=== PATIENT | female | born 1970 | race Asian ===

== ENCOUNTER 2021-02-25 07:10 | Outpatient (CLI) | payer BC, SELFPAY ==
--- NOTE | 2021-02-25 | ECHO_ITS ---
Patient Info Name: Elise Mckeon Age: 50 years : 1970 Gender: Female Ht: 62 in Wt: 144 lbs BSA: 1.71 m2 HR: 57 bpm BP: 135 / 74 mmHg Heart Rhythm: Sinus Rhythm Technical Quality: Fair Exam Date: 02/25/2021 7:57 AM Exam Location: [facility] Patient Status: Outpatient Admit Date: 02/25/2021 Staff Ordering Physician: Milo, Carla BRADLEY Sterile Tech: Shana Rueda RDCS Attending Provider: Milo, Carla BRADLEY Exam Type: CA echo doppler color flow Study Info Complete two-dimensional, color flow and Doppler transthoracic echocardiogram is performed. Summary 1. Complete two-dimensional, color flow and Doppler transthoracic echocardiogram is performed. 2. Left ventricular systolic function is hyperdynamic, estimated at >70%. 3. There is no increased left ventricular wall thickness. 4. The left ventricular diastolic function is grade II diastolic dysfunction. 5. There is no aortic valve stenosis. 6. There is mild tricuspid valve regurgitation. 7. No pulmonary hypertension, estimated pulmonary arterial systolic pressure is 31 mmHg. Left Ventricle Left ventricular chamber dimension is normal. Left ventricular systolic function is hyperdynamic, estimated at >70%. There is no increased left ventricular wall thickness. The left ventricular diastolic function is grade II diastolic dysfunction. Right Ventricle Right ventricular chamber dimension is normal. Right ventricular systolic function is normal. Left Atria Left atrial chamber dimension is normal. Right Atria Right atrial chamber dimension is normal. Aortic Valve The aortic valve is not well visualized. There is no aortic valve stenosis. There is no aortic valve regurgitation. Pulmonic Valve The pulmonic valve is not well visualized. Mitral Valve The mitral valve has normal leaflets. There is trace mitral valve regurgitation. The mitral valve annulus is mildly calcified. Tricuspid Valve The tricuspid valve leaflets are normal. There is mild tricuspid valve regurgitation. No pulmonary hypertension, estimated pulmonary arterial systolic pressure is 31 mmHg. Pericardium/Pleural The pericardium appears normal. There is no pericardial effusion. Inferior Vena Cava Normal inferior vena cava with >50% collapse upon inspiration consistent with normal right atrial pressure, 5 mmHg. Aorta The aortic root size at the sinus of Valsalva is normal. There is mild aortic atherosclerosis. Left Ventricular Outflow Tract Name Value Normal LVOT 2D LVOT Diameter 1.4 cm LVOT Doppler LVOT Peak Gradient 7 mmHg LVOT Mean Gradient 3 mmHg LVOT VTI 31 cm LVOT VTI/AV VTI Ratio 0.7 LVOT Stroke Volume 45 ml LVOT CO 2.1 l/min LVOT CI 1.3 l/min/m2 Pulmonic Valve Name Value Normal
--- NOTE | ~2021-02-25 | XR_ITS ---
EXAMINATION: XR chest 2V 02/25/2021 10:10 INDICATION: Asthma PROCEDURE: 2 view chest COMPARISON: No prior studies for comparison. FINDINGS: The lungs are clear. The cardiomediastinal silhouette is within normal limits. There are no pleural effusions. There is no pneumothorax suspected. IMPRESSION: 1: NO ACUTE CARDIOPULMONARY DISEASE. Reviewed, dictated and finalized at location A.
[2021-02-25 09:57] LABS: NT Pro B Type Natriuretic Pept 76 pg/mL (5-100)
[2021-02-25 12:03] LABS: Absolute Eosinophil Count 0.4 K/mm3 (0.0-0.3)
--- NOTE | 2021-02-25 15:06 | WPDSIXMINUTE ---
Six Minute Walk Procedure Procedure Performed Pulmonary Stress Test (6 min walk) Six Minute Walk This is a 6 minute walk test. The test was performed and interpreted in accordance with the 2014 ERS/ATS task force guidelines. Findings: The patient's resting room air oxygen saturation measured by pulse oximetry was 98% and her heart rate was 56 bpm. Patient ambulated for 396 meters and oxygen saturation remained 98%. Heart rate at the end of the study was 78 bpm. The patient did not qualify for supplemental oxygen at rest or with ambulation. There are no prior studies for comparison.
--- NOTE | 2021-02-25 15:07 | WPDPFTINT ---
PFT Procedure Performed PFT Procedure Performed Spirometry with Pre/Post Bronchodilator Plethysmography (Lung Vol) Diffusing Cap (DLCO) Flow Vol Loop PFT Interpretation This is a pulmonary function test with pre and post-bronchodilator spirometry, plethysmography and diffusing capacity. The test was performed and results interpreted in accordance with the 2019 and 2005 ATS/ERS Task Force guidelines respectively using the Global Lung Function Initiative-2012 reference equations. Patient demonstrated good effort and cooperation. Reproducibility criteria were met. The quality of the pre bronchodilator spirometry maneuver was Grade A and post bronchodilator spirometry maneuver was Grade A. Findings: Spirometry: There is decreased maximal expiratory airflow at all lung volumes with a concave expiratory flow tracing. The pre bronchodilator FVC is 2.12 L, 68% predicted. The pre bronchodilator FEV1 is 1.29 L, 51% predicted. The FEV1: FVC ratio 61%. The post bronchodilator FVC is 2.12 L, representing no change. The post bronchodilator FEV1 is 1.48 L, representing a 190 mL increase which corresponds to a 14% increase. Plethysmography: The total lung capacity is 4.41 L, 93% predicted. The functional residual capacity is 2.25 L, 86% predicted. The residual volume is 2.22 L, 129% predicted. Diffusing capacity: The absolute diffusion capacity is 16.6, 77% predicted. The diffusing capacity corrected for alveolar volume is 5.81, 125% predicted. Impression: There is a moderately severe obstructive abnormality without significant improvement after inhaling a single dose of albuterol as the absolute increase in FEV 1 was < 200 ml. The lung volumes are normal. The diffusing capacity is normal. There are no prior studies for comparison
[2021-03-02 10:14] LABS: Alpha-1-Antitrypsin, QN 108 mg/dL (83-199)
== END 2021-02-25 07:11 | disposition home or self-care (01) ==
PROVIDERS: PCP Family Medicine; Visit Provider Nurse Practitioner
DX: J45.909 Unspecified asthma, uncomplicated (principal); R06.09 Other forms of dyspnea; R94.2 Abnormal results of pulmonary function studies
CPT/HCPCS: 36415; 71046; 82103; 82104; 82785; 83880; 85048; 86003; 86480; 93306; 94060; 94618; 94726; 94729

== ENCOUNTER 2021-02-28 07:42 | Outpatient (CLI) | payer BC, SELFPAY ==
[2021-03-03 00:54] LABS: NIL 0.02 IU/mL; Quantiferon TB Plus, 1T NEGATIVE (NEGATIVE); TB1-NIL 0.02 IU/mL; TB2-NIL 0.02 IU/mL
== END 2021-02-28 07:43 | disposition home or self-care (01) ==
PROVIDERS: PCP Family Medicine; Visit Provider Nurse Practitioner
DX: J45.909 Unspecified asthma, uncomplicated (principal); R06.09 Other forms of dyspnea; R05 Cough
CPT/HCPCS: 36415; 86480

== ENCOUNTER 2023-05-22 11:03 | Outpatient (CLI) | payer BC, SELFPAY ==
[2023-05-22 11:45] LABS: Hemoglobin A1C 5.9 % (<5.7)
[2023-05-22 11:46] LABS: Cholesterol 255 mg/dL (0-200); HDL Direct 46 mg/dL; Triglycerides 174 mg/dL (<150)
[2023-05-22 11:57] LABS: LDL Cholesterol Direct 144 mg/dL
[2023-05-22 12:11] LABS: Free T4 Free Thyroxine 1.53 ng/mL (0.78-2.19)
[2023-05-24 13:11] LABS: Thyroid Stimulating Immunoglob 271 % baseline (<140)
[2023-05-25 05:13] LABS: Thyroid Peroxidase Antibodies 178 IU/mL (<9)
[2023-05-25 19:54] LABS: Thyrotropin Receptor Antibody 8.13 IU/L (<=2.00)
== END 2023-05-22 11:04 | disposition home or self-care (01) ==
LOC: ANHLAB 11:04
PROVIDERS: PCP Family Medicine; Visit Provider Internal Medicine
DX: E05.90 Thyrotoxicosis, unspecified without thyrotoxic crisis or storm (principal); I10 Essential (primary) hypertension
CPT/HCPCS: 36415; 80061; 82306; 83036; 83519; 84439; 84443; 84445; 86376

== ENCOUNTER 2023-08-22 13:49 | Outpatient (CLI) | payer BC, SELFPAY ==
[2023-08-22 17:15] LABS: Free T4 Free Thyroxine 1.18 ng/mL (0.78-2.19)
[2023-08-22 17:29] LABS: Total Triiodothyronine (T3) 1.11 NG/ML (0.97-1.69)
== END 2023-08-22 13:50 | disposition home or self-care (01) ==
LOC: ANHWCLAB 13:49
PROVIDERS: PCP Family Medicine; Visit Provider Internal Medicine
DX: E05.90 Thyrotoxicosis, unspecified without thyrotoxic crisis or storm (principal)
CPT/HCPCS: 36415; 84439; 84443; 84480

== ENCOUNTER 2023-09-07 10:41 | Outpatient (CLI) | payer BC, SELFPAY ==
--- NOTE | ~2023-09-07 | US_ITS ---
EXAMINATION: US thyroid DATE: 09/07/2023 11:31 INDICATION: Thyrotoxicosis, unspecified without thyrotoxic crisis. TECHNIQUE: Multiple ultrasound images of the thyroid were obtained. COMPARISON: None. FINDINGS: The right thyroid lobe measures 5.9 x 1.8 x 2.5 cm. The left thyroid lobe measures 5.3 x 1.6 x 2.1 c m. There is normal echotexture and echogenicity throughout the thyroid gland. No discrete nodules id entified. Normal vascular flow is present. IMPRESSION: 1. Normal thyroid. Reviewed, dictated and finalized at location A. [employer]PERT IMPRESSION: 1. Normal thyroid.
== END 2023-09-07 10:42 | disposition home or self-care (01) ==
PROVIDERS: PCP Family Medicine; Visit Provider Internal Medicine
DX: E05.90 Thyrotoxicosis, unspecified without thyrotoxic crisis or storm (principal)
CPT/HCPCS: 76536

== ENCOUNTER 2024-04-04 12:08 | Outpatient (CLI) | payer BC, SELFPAY ==
[2024-04-04 12:53] LABS: Alanine Aminotransferase 13 U/L (6-35); Albumin Level 4.7 g/dL (3.5-5.1); Alkaline Phosphatase 72 U/L (38-126); Anion Gap 13 mmol/L (4-12); Aspartate Amino Transferase 23 U/L (14-36); Blood Urea Nitrogen 14 mg/dL (7-17); Calcium 9.1 mg/dL (8.4-10.2); Carbon Dioxide 24 mmol/L (22-30); Chloride 104 mmol/L (98-107); Estimated Glomerular Filt Rate > 60; Glucose 98 mg/dL (65-110); Potassium 3.8 mmol/L (3.4-5.0); Sodium 141 mmol/L (137-145)
[2024-04-04 13:23] LABS: Total Triiodothyronine (T3) 0.99 NG/ML (0.97-1.69)
[2024-04-04 13:24] LABS: Free T4 Free Thyroxine 1.13 ng/mL (0.78-2.19)
== END 2024-04-04 12:09 | disposition home or self-care (01) ==
LOC: ANHLAB 12:10
PROVIDERS: PCP Family Medicine; Visit Provider Internal Medicine
DX: E78.5 Hyperlipidemia, unspecified (principal); R73.03 Prediabetes; I10 Essential (primary) hypertension; E05.90 Thyrotoxicosis, unspecified without thyrotoxic crisis or storm
CPT/HCPCS: 36415; 80053; 84439; 84443; 84480

== ENCOUNTER 2024-08-04 09:52 | Outpatient (CLI) | payer BC, SELFPAY ==
--- OUTSIDE RECORDS SUMMARY | 2024-08-04 10:38 | XMS_ITS | Clinical Summary ---
Author Organization [address] Address [address] [place] [address] Care Team Providers Care Toll Bridge Attendant Name Role Phone Reji Lott DO Primary Care Provider Reji Lott DO Unavailable [phone] Allergies Active Allergy Reactions Criticality Noted Date Comments Ciprofloxacin Swelling,Other (See comments) Medium 12/2017 Medications estradioL (ESTRACE) 0.01 % (0.1 mg/gram) vaginal cream Apply nightly to vagina for 1 week, then Sunday// Sunday 42.5 g 5 09/10/19 24 025 Active methIMAzole (TAPAZOLE) 5 mg tablet Take 1 tablet (5 mg total) by mouth daily 08/15/19 24 Active atorvastatin (LIPITOR) 20 mg tabletIndicati ons:Dyslipidem ia Take 1 tablet (20 mg total) by mouth daily 30 tablet 3 05/22/20 24 025 Active Arnuity Ellipta 200 mcg/actuation inhaler Inhale 1 puff daily Rinse mouth with water after use. Do not swallow. 30 each 07/24/19 25 025 Active albuterol HFA (PROVENTIL HFA,VENTOLIN HFA,PROAIR HFA) 90 mcg/actuation inhaler Inhale 2 puffs every 4 (four) hours as needed for wheezing or shortness of breath 1 each 07/24/19 25 025 Active fluticasone propionate (FLONASE) 50 mcg/actuation nasal spray Administer 1 spray into each nostril daily 1 each 07/24/19 25 025 Active metoprolol XL (TOPROL-XL) 25 mg extended release tablet TAKE 1 TABLET(25 MG) BY MOUTH DAILY 90 tablet 1 07/31/19 25 Active Arnuity Ellipta 200 mcg/actuation inhaler Inhale 1 puff daily Rinse mouth with water after use. Do not swallow. 30 each 08/14/19 24 025 Discontinued(Re order) albuterol HFA (PROVENTIL HFA,VENTOLIN HFA,PROAIR HFA) 90 mcg/actuation inhaler Inhale 2 puffs every 4 (four) hours as needed for wheezing or shortness of breath 1 each 08/14/19 24 025 Discontinued(Re order) metoprolol XL (TOPROL-XL) 25 mg extended release tablet Take 1 tablet (25 mg total) by mouth daily 90 tablet 3 08/22/19 24 025 Discontinued fluticasone propionate (FLONASE) 50 mcg/actuation nasal spray Administer 1 spray into each nostril daily 025 Discontinued(Re order) Active Problems Problem Noted Date Diagnosed Date UTI symptoms 11/05/2023 Assessment & Plan (11/05/2023 11:31 AM CDT): VSS, NAD, no systemic signs of toxicity, non acute abdomen, negative cva tenderness Urine dip unremarkable from infectious standpoint Hx of uterovaginal prolapse, and cystocele, stage 4 Will send off urine and yeast culture Follow up with urogynecology physician ER for abdominal pain, hematuria, dizziness Primary hypertension 08/22/2023 Overview (05/20/2024): Chronic, stable condition not requiring medication Continue diet modification Hyperthyroidism 08/22/2023 Overview (05/20/2024): Following with Endocrinology at [facility] Overall stable on methimazole Continue same medications Diabetes mellitus type II, controlled 08/22/2023 Overview (08/22/2023): Following with Endocrinology at [facility] Not requiring medication A1c 5.14 June 2022 Assessment & Plan (05/20/2024 11:50 AM INTERNET DATABASE SPECIALIST): Labs today Dyslipidemia 08/22/2023 Overview (05/20/2024): Chronic condition not on medications LDL 146 in June 2022 Continue diet modification Assessment & Plan (05/20/2024 11:51 AM INTERNET DATABASE SPECIALIST): Check labs Mild intermittent asthma without complication Overview (05/20/2024): Following with pulmonology Dr. Morales Chronic and stable on Arnuity Continue same medications Routine physical examination 08/22/2023 Overview (08/22/2023): June 11, 2023 Uterovaginal prolapse, incomplete 06/17/2018 Pelvic organ prolapse quantification stage 4 cys tocele 05/07/2018 Resolved Problems Problem Noted Date Diagnosed Date Resolved Date Mild intermittent asthma without complication 08/14/19 24 05/20/2024 Mixed incontinence 02/11/2018 8 Encounters Date Type Department Care Team Description 07/24/2024 11:15 AM INTERNET DATABASE SPECIALIST Office Visit [facility] Pulmonary [address] [place] [address] Charlene Morales MD Mild persistent asthma without complication (Primary Dx); Seasonal allergic rhinitis, unspecified trigger; Primary hypertension 05/22/2024 Telephone [facility] Primary Care [address] [place] [address] [address] [place] [address] Reji Lott, Test Results 05/20/2024 11:10 AM INTERNET DATABASE SPECIALIST Lab [facility] Office Building [address] [place] [address] Hyperthyroidism; Need for hepatitis B screening test; Need for hepatitis C screening test; Controlled type 2 diabetes mellitus without complication, without long-term current use of insulin (CMS/HCC) (HCC); Dyslipidemia; Primary hypertension 05/20/2024 10:45 AM INTERNET DATABASE SPECIALIST Office Visit [facility] Primary Care [address] [facility] [address] [place] [address] Reji Lott DO Controlled type 2 diabetes mellitus without complication, without long-term current use of insulin (CMS/HCC) (HCC) (Primary Dx); Need for hepatitis C screening test; Dyslipidemia; Hyperthyroidism; Mild intermittent asthma without complication; Primary hypertension; Need for hepatitis B screening test from Last 3 Months Immunizations Name Administration Dates Next Due COVID-19 MRNA (MODERNA) .5 M L (50 MCG) VACCINE (12 YEARS AND UP) 04/08/2023 Influenza, Quadrivalent, Rec ombinant, Egg Free, Preservative Free, Intramuscular 04/08/2019 Influenza, Quadrivalent, Spl it, Intramuscular 03/16/2017 Influenza, Trivalent, Cell Culture-based MDCK, Preservative Free, Antibiotic Free, Intramuscular 04/08/2024,04/08/2020 Influenza, Unspecified 03/09/2023,2021,02/25/2021,03/15,04/07/2016,03/27/2015 Medical History Medical History Date Comments Asthma Hypertension Family History Medical History Relation Name Comments Breast cancer Neg Hx Colon cancer Neg Hx Ovarian cancer Neg Hx Pancreatic cancer Neg Hx Prostate cancer Neg Hx Uterine cancer Neg Hx Social History Tobacco Use Types Packs/Day Years Used Date Smoking Tobacco: Never Smokeless Tobacco: Never Tobacco Cessation:Counseling Given: Not Answered Alcohol Use Standard Drinks/Week Comments No 0 (1 standard drink = 0.6 oz pur e alcohol) AUDIT-C Answer Date Recorded Q1: How often do you have a drink containing alcohol? Never 08/22/2023 Q2: How many drinks containi ng alcohol do you have on a typical day when you are drinking? Patient does not drink Q3: How often do you have si x or more drinks on one occasion? 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 Not on file Not on file Not on file Obstetrics History Para Term AB IAB SAB Ectopic Multiple Livin g Live Births 3 2 2 0 1 0 1 0 2 Date Outcome GA Total Labor Labor/2nd/3rd Weight Sex Type Anes PTL [place] A1 A5 Name Clin SAB Term Term Last Filed Vital Signs Vital Sign Reading Time Taken Comments Blood Pressure 126/70 07/24/2024 11:00 AM INTERNET DATABASE SPECIALIST Pulse 66 07/24/2024 11:00 AM INTERNET DATABASE SPECIALIST Temperature 35.9 ??C (96.6 ??F) 07/24/2024 11:[address] Respiratory Rate 16 07/24/2024 11:00 AM INTERNET DATABASE SPECIALIST Oxygen Saturation 97% 07/24/2024 11:00 AM INTERNET DATABASE SPECIALIST Inhaled Oxygen Concentration - - Weight 66.5 kg (146 lb 8 oz) 07/24/2024 11:00 AM INTERNET DATABASE SPECIALIST Height 157.5 cm (5' 2.01 ) 07/24/2024 11:[address] Body Mass Index 26.79 07/24/2024 11:00 AM INTERNET DATABASE SPECIALIST Plan of Treatment Health Maintenance Due Date Last Done Comments Colon Cancer Screening-Colonoscopy 1968 Dilated Eye Exam 1968 Foot Exam 1968 Pneumococcal vaccine <65 (1 of 2 - PCV) 1974 DTaP/Tdap/Td Vaccine (1 - Tdap) 1979 Zoster Vaccine (1 of 2) 2018 Cervical Cancer Screening 09/04/2023 09/04/2022, Depression Screening 08/22/2024 08/22/2023 Regular Well Visit/Exam 18-64 09/09/2024, 09/04/2022, 06/06/2021 Breast Cancer Screening-Mammogram 09/19/2024 09/20/2023, 06/29/2022, 06/29/2022, Additional history exists Hemoglobin A1C 11/17/2024 05/20/2024 Albumin Creatinine Ratio, Urine 05/20/2025 Lipid Panel 05/20/2025 05/20/2024, 12/0 07/2021, 05/23/2021 eGFR 05/20/2025 05/20/2024 Covid-19 Vaccine Completed 04/08/2024, 07/2022, 04/01/2022, Additional history exists Influenza Vaccine Completed 04/08/2024, , 03/07/2022, Additional history exists Hepatitis B Screening Completed 05/20/2024 Hepatitis C Screening Completed 05/20/2024 Procedures Procedure Name Priority Date/Time Associated Diagnosis Comments ALBUMIN CREATININE RATIO, URINE Routine 05/20/2024 11:19 AM INTERNET DATABASE SPECIALIST Controlled type 2 diabetes mellitus without complication, without long-term current use of insulin (CMS/HCC) (HCC) EGFR Routine 05/20/2024 11:17 AM INTERNET DATABASE SPECIALIST Controlled type 2 diabetes mellitus without complication, without long-term current use of insulin (CMS/HCC) (HCC) Dyslipidemia Primary hypertension COMPREHENSIVE METABOLIC PANEL Routine 05/20/2024 11:17 AM INTERNET DATABASE SPECIALIST Controlled type 2 diabetes mellitus without complication, without long-term current use of insulin (CMS/HCC) (HCC) Dyslipidemia Primary hypertension LIPID PANEL Routine 05/20/2024 11:17 AM INTERNET DATABASE SPECIALIST Controlled type 2 diabetes mellitus without complication, without long-term current use of insulin (CMS/HCC) (HCC) Dyslipidemia HEMOGLOBIN A1C Routine 05/20/2024 11:17 AM INTERNET DATABASE SPECIALIST Controlled type 2 diabetes mellitus without complication, without long-term current use of insulin (CMS/HCC) (HCC) TSH Routine 05/20/2024 11:17 AM INTERNET DATABASE SPECIALIST Hyperthyroidism T4, FREE Routine 05/20/2024 11:17 AM INTERNET DATABASE SPECIALIST Hyperthyroidism HEPATITIS C ANTIBODY Routine 05/20/2024 11:17 AM INTERNET DATABASE SPECIALIST Need for hepatitis C screening test HEPATITIS B SURFACE ANTIGEN Routine 05/20/2024 11:17 AM INTERNET DATABASE SPECIALIST Need for hepatitis B screening test HEPATITIS B CORE ANTIBODY, TOTAL Routine 05/20/2024 11:17 AM INTERNET DATABASE SPECIALIST Need for hepatitis B screening test HEPATITIS B SURFACE ANTIBODY (IMMUNE STATUS) Routine 05/20/2024 11:17 AM INTERNET DATABASE SPECIALIST Need for hepatitis B screening test SCREENING MAMMOGRAM BILATERAL W RAGHAV Schedule Routine, Read Routine (OP Routine) 09/20/2023 10:33 AM CDT Encounter for screening mammogram for malignant neoplasm of breast PAP AND HIGH RISK HPV, REFLEX TO GENOTYPING Routine 09/04/2022 8:36 AM INTERNET DATABASE SPECIALIST Well woman exam from Last 3 Months or Most Recently Relevant to Health Maintenance Results * Albumin Creatinine Ratio, Urine (05/20/2024 11:19 AM INTERNET DATABASE SPECIALIST) Albumin Ur <12.0 mg/L Comment: Interpretive Data No reference range established. Current interpretive data was last revised 2018. Testing performed by: [address] [address] Creatinine Ur 67.8 mg/dL LEENA Comment: Interpretive Data No reference range established. Current interpretive data was last revised 2018. Testing performed by: [address] [address] Albumin Creatinine Ratio, Ur <18 1 - 29 mg/g LEENA Comment:Testing performed by : [address] [address] Urine 05/20/2024 11:1 9 AM INTERNET DATABASE SPECIALIST 05/20/2024 1:54 PM INTERNET DATABASE SPECIALIST us Reji Lott DO LAB URINE ORDERABLES F inal Result LEENA [address] [facility] [place] [address] * eGFR (05/20/2024 11:17 AM INTERNET DATABASE SPECIALIST) eGFR >90 >=60 mL/min/1. 73 m2 Comment: Interpretive Data Reference Interval Normal ?>/= 90 mL/min/1.73m2 Mildly decreased* ? 60 - 89 mL/min/1.73m2 Mildly to moderately decreased ?45 - 59 mL/min/1.73m2 Moderately to severely decreased ??30 - 44 mL/min/1.73m2 Severely decreased ?15 - 29 mL/min/1.73m2 Kidney Failure ?< 15 ??mL/min/1.73m2 *Relative to young adult level Estimated glomerular filtration rate is determined by the 2020 CKD-EPI equation recommended by the National Kidney Foundation (A Unifying Approach to GFR Estimation: Recommendations of the NKF-ASK Task Force on Reassessing the Inclusion of Race in Diagnosing Kidney Disease, JASN 2020). The CKD-EPI equation should not be used for patients with unstable renal function and has not been validated in children and those over 70. Current interpretive data was last reviewed 2021. Testing performed by: [facility], [address] [place] [address]., [id number] Blood 05/20/2024 11:1 7 AM INTERNET DATABASE SPECIALIST 05/20/2024 1:45 PM INTERNET DATABASE SPECIALIST Reji Lott DO LAB BLOOD ORDERABLES F inal Result Performing Organization Address City/State/[facility] Co de Phone Number [id number] NR [address] [facility] [place] [address] * Hepatitis C antibody Blood (05/20/2024 11:17 AM INTERNET DATABASE SPECIALIST) Hep C Ab Nonreactive Nonreactive Comment: Antibodies to HCV not detected. Does NOT exclude the possibility of recent exposure to HCV. Current interpretive data was last revised on 22 Interpretive Data Nonreactive: Antibodies to HCV not detected. Does NOT exclude the possibility of recent exposure to HCV. Equivocal: Equivocal for HCV antibodies. Supplemental molecular testing will be automatically performed to determine infection status in accordance with current CDC screening recommendations. ?? Reactive: Positive for HCV antibodies. ??This may represent current or past HCV infection. Supplemental molecular testing will be automatically performed to determine ??current infection status in accordance with current CDC screening recommendations. Interpretive data was last revised on 2019. Blood 05/20/2024 11:1 7 AM INTERNET DATABASE SPECIALIST 05/20/2024 4:41 PM INTERNET DATABASE SPECIALIST [facility] MICROBIOLOGY - GEN ERAL ORDERABLES Final Result Performing Organization Address [facility] de Phone Number [id number] [place] [address] * (ABNORMAL) Hepatitis B core antibody, total Blood (05/20/2024 11:17 AM INTERNET DATABASE SPECIALIST) Pathologist [facility] Hep B core IgG/IgM Reactive( A) Nonreactive Comment:Testing performed by : [facility], [address] [place]., [address] Blood 05/20/2024 11:1 7 AM INTERNET DATABASE SPECIALIST 05/20/2024 5:26 PM INTERNET DATABASE SPECIALIST [facility] MICROBIOLOGY - GEN ERAL ORDERABLES Final Result Performing Organization Address [facility] de Phone Number [address] [place] [address] * Hepatitis B surface antibody (immune status) Blood (05/20/2024 11:17 AM INTERNET DATABASE SPECIALIST) Pathologist [facility] HBsAb (immune status) Reactive Comment: Interpretive Data Nonreactive: This result is consistent with a lack of immunity to Hepatitis B Virus when used in the setting of routine screening. Equivocal: The immune status of the individual should be further assessed, if appropriate, after consideration of clinical status, risk factors, and additional diagnostic information. Reactive: This result is consistent with immunity to Hepatitis B Virus when used in the setting of routine screening. Current interpretive data was last revised on 19. HBsAb (immune status) index 13.8 mIUnits/m L LEENA Blood 05/20/2024 11:1 7 AM INTERNET DATABASE SPECIALIST 05/20/2024 4:41 PM INTERNET DATABASE SPECIALIST [facility] MICROBIOLOGY - GEN ERAL ORDERABLES Final Result Performing Organization Address [facility] Co de Phone Number LEENA [address] [place] [address] * Hepatitis B Surface Antigen Blood (05/20/2024 11:17 AM INTERNET DATABASE SPECIALIST) Pathologist [facility] HepBsAg Nonreactive Nonreactive Blood 05/20/2024 11:1 7 AM INTERNET DATABASE SPECIALIST 05/20/2024 4:41 PM INTERNET DATABASE SPECIALIST Reji [facility] MICROBIOLOGY - GEN ERAL ORDERABLES Final Result Performing Organization Address [facility] de Phone Number NUPUR[address] [place] [address] * TSH (05/20/2024 11:17 AM INTERNET DATABASE SPECIALIST) [facility] Thyroid Stimulating Hormone 3.30 0.30 - 4.20 mcIUnit/mL Comment:Testing performed by : [address] [address] Blood 05/20/2024 11:1 7 AM INTERNET DATABASE SPECIALIST 05/20/2024 1:45 PM INTERNET DATABASE SPECIALIST [facility] BLOOD ORDERABLES F inal Result Performing Organization Address [facility] Co de Phone Number [address] [place] [address] * T4, free (05/20/2024 11:17 AM INTERNET DATABASE SPECIALIST) [facility] Free T4 1.10 0.90 - 1.70 ng/dL Comment:Testing performed by : [address] [address] Blood 05/20/2024 11:1 7 AM INTERNET DATABASE SPECIALIST 05/20/2024 1:45 PM INTERNET DATABASE SPECIALIST Reji Lott DO LAB BLOOD ORDERABLES F inal Result Performing Organization Address [facility] de Phone Number LEENA [address] [facility] [place] [address] * (ABNORMAL) Hemoglobin A1c (05/20/2024 11:17 AM INTERNET DATABASE SPECIALIST) Hgb A1C 6.3(H) 4.0 - 5.6 % Comment:Testing performed by : [address] [address] Estimated Average Glucose 134 mg/dL LEENA Comment: The ADA recommends reporting an estimated Average Glucose (eAG) with all Hemoglobin A1c results using the equation derived from a study of 507 normal and diabetic adults. ??Minority populations were underrepresented and children were not included. ?? (Diabetes Care 31:7560-0844, 2008). ??The eAG is not equivalent to a fasting glucose. Testing performed by: [facility], [address] [place] [address]., [address] Blood 05/20/2024 11:1 7 AM INTERNET DATABASE SPECIALIST 05/20/2024 1:52 PM INTERNET DATABASE SPECIALIST Reji Lott DO LAB BLOOD ORDERABLES F inal Result Performing Organization Address [facility] de Phone Number [facility] [address] [facility] [place] [address] * (ABNORMAL) Lipid panel (05/20/2024 11:17 AM INTERNET DATABASE SPECIALIST) Cholesterol 258(H) 30 - 199 mg/dL Comment: Interpretive Data Ages < or = 19 years ??Acceptable: ? <170 mg/dL ??Borderline high: ??170-199 mg/dL ??High: ? >or= 200 mg/dL Ages > or = 20 years ??Desirable: ?<200 mg/dL ??Borderline high: ??200-239 mg/dL ??High: ? >or= 240 mg/dL Literature References: 1. Expert Panel on Integrated Guidelines for Cardiovascular Health and Risk Reduction in Children and Adolescents. Pediatrics 2011;128:S213 2. NCEP Expert Panel. Circulation 2004;110:227 Current Interpretive Data was last revised on 2018. Testing performed by: [address] [address] Triglycerides 120 <=149 mg/dL LEENA Comment: Interpretive Data Ages < or = 9 years ??Acceptable: ? <75 mg/dL ??Borderline high: ??75-99 mg/dL ??High: ? >or= 100 mg/dL Ages 10 to 20 years ??Acceptable: ? <90 mg/dL ??Borderline high: ??90-129 mg/dL ??High: ? >or= 130 mg/dL Ages > or = 20 years ??Desirable: ?<150 mg/dL ??Borderline high: ??150-199 mg/dL ??High: ? 200-499 mg/dL ?Very high: ?? >or= 499 mg/dL Literature References: 1. Expert Panel on Integrated Guidelines for Cardiovascular Health and Risk Reduction in Children and Adolescents. Pediatrics 2011;128:S213 2. NCEP Expert Panel. Circulation 2004;110:227 Current Interpretive Data was last revised on 2018. Testing performed by: [address] [address] HDL 55 >=40 mg/dL LEENA Comment: Interpretive Data Ages < or = 19 years ??Acceptable: ? >45 mg/dL ??Borderline low: ?? 40-45 mg/dL ??Low: ? <40 mg/dL Ages > or = 20 years ??Desirable: ?>or= 60 mg/dL ??Low: ? <40 mg/dL Literature References: 1. Expert Panel on Integrated Guidelines for Cardiovascular Health and Risk Reduction in Children and Adolescents. Pediatrics 2011;128:S213 2. NCEP Expert Panel. Circulation 2004;110:227 Current Interpretive Data was last revised on 2018. Testing performed by: [address] [address] LDL, calculated 182(H) <=129 mg/dL LEENA Comment: Interpretive Data Ages < or = 19 years ??Acceptable: ? <110 mg/dL ??Borderline high: ??110-129 mg/dL ??High: ?>or= 130 mg/dL Ages > or = 20 years ??Optimal: ? <100 mg/dL ??Near optimal: ?100-129 mg/dL ??Borderline high: ?? 130-159 mg/dL ??High: ?>160 mg/dL Calculated using the Bob LDL-C estimating equation. This equation was implemented on 2024. Prior to this date LDL-C was estimated using the Friedewald equation. Literature References: 1. Expert Panel on Integrated Guidelines for Cardiovascular Health and Risk Reduction in Children and Adolescents. Pediatrics 2011;128:S213 2. NCEP Expert Panel. Circulation 2004;110:227 3. Bob Church et al. RADHA Cardiol. 2020 November 06;5(5):540-548. doi: 10.1001/jamacardio.2020.0013 Current Interpretive Data was last revised on 2024. Testing performed by: [address] [address] Non-HDL Cholesterol 203 mg/dL LEENA Comment: Interpretive Data Ages < or = 19 years ??Acceptable: ?<120 mg/dL ??Borderline high: ??120-144 mg/dL ??High: ?>145 mg/dL Ages > or = 20 years ??When triglycerides are >200 mg/dL, Non-HDL cholesterol is a secondary target of ? therapy with treatment goals that are 30 mg/dL greater than the LDL cholesterol target. ? Literature References: 1. Expert Panel on Integrated Guidelines for Cardiovascular Health and Risk Reduction in Children and Adolescents. Pediatrics 2011;128:S213 2. NCEP Expert Panel. Circulation 2004;110:227 Current Interpretive Data was last revised on 2018. Testing performed by: [address] [address] Chol/HDL ratio 5 LEENA Comment:Testing performed by : [address] [address] Blood 05/20/2024 11:1 7 AM INTERNET DATABASE SPECIALIST 05/20/2024 1:45 PM INTERNET DATABASE SPECIALIST us Reji Lott LAB BLOOD ORDERABLES F inal Result LEENA [address] [facility] Department [place] [address] * Comprehensive metabolic panel (05/20/2024 11:17 AM INTERNET DATABASE SPECIALIST) Sodium 139 135 - 145 mmol/L Comment:Testing performed by : [address] [address] Potassium, pl 4.1 3.3 - 4.9 mmol/L LEENA Comment:Testing performed by : [address] [address] Chloride 102 97 - 110 mmol/L LEENA Comment:Testing performed by : [address] [address] CO2 25 22 - 32 mmol/L LEENA Comment:Testing performed by : [address] [address] Anion gap 12 2 - 15 mmol/L LEENA Comment:Testing performed by : [address] [address] BUN 14 6 - 25 mg/dL LEENA Comment:Testing performed by : [address] [address] Creatinine 0.60 0.60 - 1.10 mg/dL LEENA Comment:Testing performed by : [address] [address] Glucose 98 70 - 199 mg/dL LEENA Comment: Interpretive Data Fasting glucose >/= 126 mg/dl is diagnostic for diabetes. ?? Fasting is defined as no caloric intake for at least 8 hours. Fasting glucose between 100 mg/dl to 125 mg/dl is diagnostic of prediabetes. In a patient with classic symptoms of hyperglycemia or hyperglycemic crisis, a random glucose >/= 200 mg/dl is diagnostic for diabetes. In the absence of unequivocal hyperglycemia, results should be confirmed by repeat testing. The classification and Diagnosis of Diabetes Diabetes Care 2021; 46: S19-S40. Current interpretive data was last revised 2022. Testing performed by: [address] [address] Calcium 9.7 8.5 - 10.3 mg/dL LEENA Comment:Testing performed by : [address] [address] Bilirubin, total 0.6 0.1 - 1.2 mg/dL LEENA Comment:Testing performed by : [address] [address] Protein, pl 8.3 6.5 - 8.5 g/dL LEENA Comment:Testing performed by : [address] [address] Albumin 4.5 3.5 - 5.0 g/dL LEENA Comment:Testing performed by : [address] [address] Alk phos 70 40 - 130 Units/L LEENA Comment:Testing performed by : [address] [address] ALT 8 7 - 45 Units/L LEENA Comment:Testing performed by : [address] [address] AST 16 10 - 45 Units/L LEENA Comment:Testing performed by : [address] [address] Blood 05/20/2024 11:1 7 AM INTERNET DATABASE SPECIALIST 05/20/2024 1:45 PM INTERNET DATABASE SPECIALIST Reji Brandon [facility] LAB BLOOD ORDERABLES F inal Result LEENA [address] [facility] Department of Laboratories [place], [place] [id number] * Screening Mammogram Bilateral W Raghav (09/20/2023 10:33 AM CDT) Anatomical Region Laterality Modality Breast Bilateral Mammography Impressions 09/21/2023 11:09 AM CDT BI-RADS?? ATLAS category (overall): 2 - Benign There is no mammographic evidence of malignancy. A 1 year screening mammogram is recommended. The patient has been or will be contacted. We recommend annual screening mammography for women at average risk of breast cancer beginning at age 40, based on guidelines of the [employer] (ACR Practice Parameter for the Performance of Screening and Diagnostic Mammography) and [employer]. For women with and elevated risk of breast cancer, please refer to the ACR Practice Parameter for specific screening recommendations. The patient will be entered into a reminder system with a target due date of 1 year for her next screening exam. Narrative 09/21/2023 11:09 AM CDT Screening Mammogram Bilateral W Raghav: 09/20/23 The study was acquired using full field digital technology and interpreted from soft copy. 2D digital mammographic views, as well as 3D digital tomosynthesis were performed in the CC and MLO projections. CLINICAL: ??Encounter for screening mammogram for malignant neoplasm of breast. ??No relevant medical history has been documented for this patient. History of breast cancer in Neg Hx. COMPARISONS: 06/29/2022 Breast Imaging Screening Outside Reference 06/03/2021 Breast Imaging US Outside Reference 06/03/2021 Breast Imaging Diagnostic Outside Reference 05/18/2021 Breast Imaging Screening Outside Reference 04/07/2019 Breast Imaging Screening Outside Reference 04/10/2018 Breast Imaging Screening Outside Reference BREAST TISSUE: The breasts are heterogeneously dense, which may obscure small masses. FINDINGS: There is a stable oval circumscribed mass in the central lower left breast, characterized as a benign cyst on prior ultrasound. No suspicious masses, suspicious calcifications, or other suspicious findings are seen within either breast. There has been no suspicious change. Reji Aleksandr Kaylie DO IMG MAMMO PROCEDURES F inal Result * Pap and High Risk HPV, reflex to Genotyping (09/04/2022 8:36 AM INTERNET DATABASE SPECIALIST) Thin prep (Pap test) 09/04/2022 8:36 AM INTERNET DATABASE SPECIALIST 09/05/2022 8:36 AM INTERNET DATABASE SPECIALIST Narrative PATHOLOGY [facility] - 09/07/2022 3:09 PM INTERNET DATABASE SPECIALIST [facility] Department of Pathology [address] [place], [place] [id number] Final Report with Addendum Note to Patients: This report may contain a detailed description of human tissue sent by a health care provider to the laboratory for pathologic evaluation. The content of this report is essential for diagnosis and may provide important critical findings. This information may be unfamiliar to patients to review without a medical professional present. It is advised that the patient review this report in the presence of a health care provider who can answer questions and explain the details. Patient Name: ??ELISE GARBERLebron Address: ??[facility] [address], ?? [place], [place] [address] Gender: ??F : ??1970 (Age: 52) Service: ?? Location: ?? [facility] #: ??[id number] Patient Type: ??[facility] SPECIMEN Taken: ??09/04/2022 Received: ??09/05/2022 Accessioned:: ??09/06/2022 Reported: ??09/07/2022 Physician(s): Monique Edouard M.D. [facility] Diagnosis: Source of Specimen: ? SCREENING THIN PREP IMAGED PAP w/ HPV: Specimen Adequacy: ? - Satisfactory for evaluation; endocervical/transformation zone component present ? General Categorization: ? - Negative for intraepithelial lesion or malignancy ? MARY Agiular(ASCP) Report Electronically Reviewed and Signed Out By ??MARY Aguilar(ASCP) ??09/07/2022 15:09:57Addenda: HPV Test Interpretation NEGATIVE for types 16, 18, 31, 33, 35, 39, 45, 51, 52, 56, 58, 59, 66 and 68. Test performed utilizing Gen-Probe Aptima assay. MARY Mejía(ASCP)Report Electronically Reviewed and Signed Out By ??MARY Mejía(ASCP) ??09/07/2022 11:22:22 ?? Specimen(s) Received: A: SCREENING THIN PREP IMAGED PAP w/ HPV Clinical History: Menstrual History: Post-menopausal The Pap test is a screening test used to aid in the detection of cervical cancer and its precursors. ??It should not be the sole means by which malignant and premalignant lesions are diagnosed. ??Both false negative and false positive results may occur. ?? It also has poor sensitivity for the detection of endometrial lesions and should not be used to evaluate suspected endometrial abnormalities. ??For these reasons it is most important to obtain Pap tests at regular intervals. The performance characteristics of some immunohistochemical stains, fluorescence in-situ hybridization tests and immunophenotyping by flow cytometry cited in this report (if any) were determined by the Surgical Pathology Department at [facility] as part of an ongoing senior quality assurance specialist program and in compliance with federally mandated regulations drawn from the Clinical Laboratory Improvement Act of 1988 (CLIA '88). ??Some of these tests rely on the use of analyte specific reagents and are subject to specific labeling requirements by the US Food and Drug Administration. ??Such diagnostic tests may only be performed in a facility that is certified by the Department of Health and Human Services as a high complexity laboratory under CLIA '88. The FDA has determined that such clearance or approval is not necessary. ??This test is used for clinical purposes. ??It should not be regarded as investigational or for research. ??Nevertheless, federal rules concerning the medical use of analyte specific reagents require that the following disclaimer be attached to the report: This test was developed and its performance characteristics determined by the Surgical Pathology Department [facility]. ??It has not been cleared or approved by the U. S. Food and Drug Administration. Monique Edouard MD LAB CYTOLOGY ORDERABLES Final Result [facility] from Last 3 Months or Most Recently Relevant to Health Maintenance [place] Care Teams Toll [place] Attendant Relationship Specialty Start Date End Date Reji Lott DO [address] [address] PCP - General Family Medicine 08/22/23 Reji Lott DO [address] [address] Family Practice 07/12/23
--- OUTSIDE RECORDS SUMMARY | 2024-08-04 10:38 | XMS_ITS | Referral Summary ---
Author Organization [place] [id number] [facility] Address [address] [place] [address] Care Team Providers Care Jewel Bearing Facer Name Role Phone Reji Lott DO Primary Care Provider Reji Lott DO Unavailable [phone] Encounters Date Type Department Care Team Description 07/24/2024 11:15 AM NEWSPAPER DELIVERY COUNSELOR Office Visit [facility] Pulmonary [address] [place] [address] Charlene Morales MD Mild persistent asthma without complication (Primary Dx); Seasonal allergic rhinitis, unspecified trigger; Primary hypertension 05/22/2024 Telephone [facility] Primary Care [address] [place] [address] [address] [place] [address] Reji Lott DO Test Results 05/20/2024 11:10 AM NEWSPAPER DELIVERY COUNSELOR Lab [facility] Office Building [address] [place] [address] Hyperthyroidism; Need for hepatitis B screening test; Need for hepatitis C screening test; Controlled type 2 diabetes mellitus without complication, without long-term current use of insulin (CMS/HCC) (HCC); Dyslipidemia; Primary hypertension 05/20/2024 10:45 AM NEWSPAPER DELIVERY COUNSELOR Office Visit [facility] Primary Care [address] [place] [address] [address] [place] [phone] Kaylie, Reji Aleksanrd, DO Controlled type 2 diabetes mellitus without complication, without long-term current use of insulin (CMS/HCC) (HCC) (Primary Dx); Need for hepatitis C screening test; Dyslipidemia; Hyperthyroidism; Mild intermittent asthma without complication; Primary hypertension; Need for hepatitis B screening test from Last 3 Months Allergies Active Allergy Reactions Criticality Noted Date [...] wheezing or shortness of breath 1 each 11 08/14/19 24 025 Discontinued(Re order) metoprolol XL [...] urine and yeast culture Follow up with [facility] for abdominal pain, hematuria, dizziness Primary hypertension 08/22/2023 Overview (05/20/2024): Chronic, stable condition not requiring medication Continue diet modification Hyperthyroidism 08/22/2023 Overview (05/20/2024): Following with Endocrinology at [facility] Overall stable on methimazole Continue same medications Diabetes mellitus type II, controlled 08/22/2023 Overview (08/22/2023): Following with Endocrinology at [facility] Not requiring medication A1c 5.14 June 2022 Assessment & Plan (05/20/2024 11:50 AM NEWSPAPER DELIVERY COUNSELOR): Labs today Dyslipidemia 08/22/2023 Overview (05/20/2024): Chronic condition not on medications LDL 146 in June 2022 Continue diet modification Assessment & Plan (05/20/2024 11:51 AM NEWSPAPER DELIVERY COUNSELOR): Check labs Mild intermittent asthma without complication Overview (05/20/2024): Following with pulmonology Dr. Andrew Chronic and stable on Arnuity Continue same medications Routine physical examination 08/22/2023 Overview (08/22/2023): June 11, 2023 Uterovaginal prolapse, incomplete 06/17/2018 Pelvic organ prolapse quantification stage 4 cys tocele 05/07/2018 Resolved Problems Problem Noted Date Diagnosed Date Resolved Date Mild intermittent asthma without complication 08/14/19 24 05/20/2024 Mixed incontinence 02/11/2018 8 Immunizations Name Administration Dates Next Due COVID-19 MRNA (MODERNA) .5 M L (50 MCG) VACCINE (12 YEARS AND UP) 04/08/2023 Influenza, Quadrivalent, Rec ombinant, Egg Free, Preservative Free, Intramuscular 04/08/2019 Influenza, Quadrivalent, Spl it, Intramuscular 03/16/2017 Influenza, Trivalent, Cell Culture-based MDCK, Preservative Free, Antibiotic Free, Intramuscular 04/08/2024,04/08/2020 Influenza, Unspecified 03/09/2023,2021,02/25/2021,03/15,04/07/2016,03/27/2015 Social History Tobacco Use Types Packs/Day Years [...] on file Legal Sex Female 3:26 AM NEWSPAPER DELIVERY COUNSELOR Gender Identity Female 03/25/2019 4:31 PM CDT Sexual Orientation Not on file 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 Not on file Not on file Not on file Last Filed Vital Signs Vital Sign Reading Time Taken Comments Blood Pressure 126/70 07/24/2024 11:00 AM NEWSPAPER DELIVERY COUNSELOR Pulse 66 07/24/2024 11:00 AM NEWSPAPER DELIVERY COUNSELOR Temperature 35.9 ??C (96.6 ??F) 07/24/2024 11:[address] Respiratory Rate 16 07/24/2024 11:00 AM NEWSPAPER DELIVERY COUNSELOR Oxygen Saturation 97% 07/24/2024 11:00 AM NEWSPAPER DELIVERY COUNSELOR Inhaled Oxygen Concentration - - Weight 66.5 kg (146 lb 8 oz) 07/24/2024 11:00 AM NEWSPAPER DELIVERY COUNSELOR Height 157.5 cm (5' 2.01 ) 07/24/2024 11:[address] Body Mass Index 26.79 07/24/2024 11:00 AM NEWSPAPER DELIVERY COUNSELOR Plan of Treatment Not on file Procedures Procedure Name Priority Date/Time Associated Diagnosis Comments ALBUMIN CREATININE RATIO, URINE Routine 05/20/2024 11:19 AM NEWSPAPER DELIVERY COUNSELOR Controlled type 2 diabetes mellitus without complication, without long-term current use of insulin (CMS/HCC) (HCC) EGFR Routine 05/20/2024 11:17 AM NEWSPAPER DELIVERY COUNSELOR Controlled type 2 diabetes mellitus without complication, without long-term current use of insulin (CMS/HCC) (HCC) Dyslipidemia Primary hypertension COMPREHENSIVE METABOLIC PANEL Routine 05/20/2024 11:17 AM NEWSPAPER DELIVERY COUNSELOR Controlled type 2 diabetes mellitus without complication, without long-term current use of insulin (CMS/HCC) (HCC) Dyslipidemia Primary hypertension LIPID PANEL Routine 05/20/2024 11:17 AM NEWSPAPER DELIVERY COUNSELOR Controlled type 2 diabetes mellitus without complication, without long-term current use of insulin (CMS/HCC) (HCC) Dyslipidemia HEMOGLOBIN A1C Routine 05/20/2024 11:17 AM NEWSPAPER DELIVERY COUNSELOR Controlled type 2 diabetes mellitus without complication, without long-term current use of insulin (CMS/HCC) (HCC) TSH Routine 05/20/2024 11:17 AM NEWSPAPER DELIVERY COUNSELOR Hyperthyroidism T4, FREE Routine 05/20/2024 11:17 AM NEWSPAPER DELIVERY COUNSELOR Hyperthyroidism HEPATITIS C ANTIBODY Routine 05/20/2024 11:17 AM NEWSPAPER DELIVERY COUNSELOR Need for hepatitis C screening test HEPATITIS B SURFACE ANTIGEN Routine 05/20/2024 11:17 AM NEWSPAPER DELIVERY COUNSELOR Need for hepatitis B screening test HEPATITIS B CORE ANTIBODY, TOTAL Routine 05/20/2024 11:17 AM NEWSPAPER DELIVERY COUNSELOR Need for hepatitis B screening test HEPATITIS B SURFACE ANTIBODY (IMMUNE STATUS) Routine 05/20/2024 11:17 AM NEWSPAPER DELIVERY COUNSELOR Need for hepatitis B screening test SCREENING MAMMOGRAM BILATERAL W RAGHAV Schedule Routine, Read Routine (OP Routine) 09/20/2023 10:33 AM CDT Encounter for screening mammogram for malignant neoplasm of breast PAP AND HIGH RISK HPV, REFLEX TO GENOTYPING Routine 09/04/2022 8:36 AM NEWSPAPER DELIVERY COUNSELOR Well woman exam from Last 3 Months or Most Recently Relevant to Health Maintenance Results * Albumin Creatinine Ratio, Urine (05/20/2024 11:19 AM NEWSPAPER DELIVERY COUNSELOR) Albumin Ur <12.0 mg/L Comment: Interpretive Data No reference range established. Current interpretive data was last revised 2018. Testing performed by: [address] [address] Creatinine Ur 67.8 mg/dL LEENA GUILLEN Comment: Interpretive Data No reference range established. Current interpretive data was last revised 2018. Testing performed by: [address] [address] Albumin Creatinine Ratio, Ur <18 1 - 29 mg/g LEENA GUILLEN Comment:Testing performed by : [address] [address] Urine 05/20/2024 11:1 9 AM NEWSPAPER DELIVERY COUNSELOR 05/20/2024 1:54 PM NEWSPAPER DELIVERY COUNSELOR us Reji Lott DO LAB URINE ORDERABLES F inal Result LEENA GUILLEN [address] [facility] [place] [address] * eGFR (05/20/2024 11:17 AM NEWSPAPER DELIVERY COUNSELOR) Pathologist [facility] eGFR >90 >=60 mL/min/1. 73 m2 Comment: [...] was last reviewed 2021. Testing performed by: [facility], [address] [place] [address]., [address] Blood 05/20/2024 11:1 7 AM NEWSPAPER DELIVERY COUNSELOR 05/20/2024 1:45 PM NEWSPAPER DELIVERY COUNSELOR us Reji Lott DO LAB BLOOD ORDERABLES F inal Result LEENA [address] [facility] [place] [address] * Hepatitis C antibody Blood (05/20/2024 11:17 AM NEWSPAPER DELIVERY COUNSELOR) Pathologist [facility] Hep C Ab Nonreactive Nonreactive Comment: Antibodies [...] on 2019. Blood 05/20/2024 11:1 7 AM NEWSPAPER DELIVERY COUNSELOR 05/20/2024 4:41 PM NEWSPAPER DELIVERY COUNSELOR Reji Aleksandr [place] DO LAB MICROBIOLOGY - GEN ERAL ORDERABLES Final Result Performing Organization Address [facility] Co de Phone Number [place] [address] [facility] [place] [address] * (ABNORMAL) Hepatitis B core antibody, total Blood (05/20/2024 11:17 AM NEWSPAPER DELIVERY COUNSELOR) Pathologist [facility] Hep B core IgG/IgM Reactive( A) Nonreactive Comment:Testing performed by : [facility], [address] [place]., [address] Blood 05/20/2024 11:1 7 AM NEWSPAPER DELIVERY COUNSELOR 05/20/2024 5:26 PM NEWSPAPER DELIVERY COUNSELOR [facility] [place] DO LAB MICROBIOLOGY - GEN ERAL ORDERABLES Final Result Performing Organization Address [facility] Co de Phone Number [facility] [address] [facility] [place] [address] * Hepatitis B surface antibody (immune status) Blood (05/20/2024 11:17 AM NEWSPAPER DELIVERY COUNSELOR) Pathologist [facility] HBsAb (immune status) Reactive Comment: Interpretive [...] 19. HBsAb (immune status) index 13.8 mIUnits/m Rosio STERN Blood 05/20/2024 11:1 7 AM NEWSPAPER DELIVERY COUNSELOR 05/20/2024 4:41 PM NEWSPAPER DELIVERY COUNSELOR [facility] MICROBIOLOGY - GEN ERAL ORDERABLES Final Result Performing Organization Address City/[facility]/ZIP Co de Phone Number [address] [place] [place] [address] * Hepatitis B Surface Antigen Blood (05/20/2024 11:17 AM NEWSPAPER DELIVERY COUNSELOR) HepBsAg Nonreactive Nonreactive Blood 05/20/2024 11:1 7 AM NEWSPAPER DELIVERY COUNSELOR 05/20/2024 4:41 PM NEWSPAPER DELIVERY COUNSELOR [facility] MICROBIOLOGY - GEN ERAL ORDERABLES Final Result Performing Organization Address [facility] Co de Phone Number [address] [place] [address] * TSH (05/20/2024 11:17 AM NEWSPAPER DELIVERY COUNSELOR) Thyroid Stimulating Hormone 3.30 0.30 - 4.20 mcIUnit/mL Comment:Testing performed by : [facility], [address] [place] [address]., [address] Blood 05/20/2024 11:1 7 AM NEWSPAPER DELIVERY COUNSELOR 05/20/2024 1:45 PM NEWSPAPER DELIVERY COUNSELOR [facility] BLOOD ORDERABLES F inal Result Performing Organization Address City/[facility]/ZIP Co de Phone Number [place] [id number] [facility] [place] [place] [address] * T4, free (05/20/2024 11:17 AM NEWSPAPER DELIVERY COUNSELOR) [facility] Free T4 1.10 0.90 - 1.70 ng/dL Comment:Testing performed by : [address] [address] Blood 05/20/2024 11:1 7 AM NEWSPAPER DELIVERY COUNSELOR 05/20/2024 1:45 PM NEWSPAPER DELIVERY COUNSELOR [facility] [place] DO LAB BLOOD ORDERABLES F inal Result Performing Organization Address [facility] Co de Phone Number [place] [address] [facility] [place] [address] * (ABNORMAL) Hemoglobin A1c (05/20/2024 11:17 AM NEWSPAPER DELIVERY COUNSELOR) [facility] Hgb A1C 6.3(H) 4.0 - 5.6 % Comment:Testing performed by : [address] [address] Estimated Average Glucose 134 mg/dL LEENA Comment: The ADA recommends reporting an estimated Average Glucose (eAG) with all Hemoglobin A1c results using the equation derived from a study of 507 normal and diabetic adults. ??Minority populations were underrepresented and children were not included. ?? (Diabetes Care 31:5972-2342, 2008). ??The eAG is not equivalent to a fasting glucose. Testing performed by: [address] [address] Blood 05/20/2024 11:1 7 AM NEWSPAPER DELIVERY COUNSELOR 05/20/2024 1:52 PM NEWSPAPER DELIVERY COUNSELOR Reji Aleksandr [place] DO LAB BLOOD ORDERABLES F inal Result Performing Organization Address [facility] de Phone Number [facility] [address] [facility] [place] [address] * (ABNORMAL) Lipid panel (05/20/2024 11:17 AM NEWSPAPER DELIVERY COUNSELOR) [facility] Cholesterol 258(H) 30 - 199 mg/dL Comment: [...] last revised on 2018. Testing performed by: [address] [address] Triglycerides 120 <=149 mg/dL LEENA Comment: Interpretive [...] last revised on 2018. Testing performed by: [address] [address] HDL 55 >=40 mg/dL LEENA Comment: Interpretive [...] last revised on 2018. Testing performed by: [facility], [address] [place] [address]., [address] LDL, calculated 182(H) <=129 mg/dL LEENA GUILLEN Comment: Interpretive Data Ages < or = [...] last revised on 2024. Testing performed by: [address] [address] Non-HDL Cholesterol 203 mg/dL LEENA Comment: Interpretive [...] last revised on 2018. Testing performed by: [address] [address] Chol/HDL ratio 5 LEENA Comment:Testing performed by : [address] [address] Blood 05/20/2024 11:1 7 AM NEWSPAPER DELIVERY COUNSELOR 05/20/2024 1:45 PM NEWSPAPER DELIVERY COUNSELOR Reji Lott DO LAB BLOOD ORDERABLES F inal Result LEENA [address] [facility] Department of Laboratories [place], [place] [id number] * Comprehensive metabolic panel (05/20/2024 11:17 AM NEWSPAPER DELIVERY COUNSELOR) Sodium 139 135 - 145 mmol/L Comment:Testing performed by : [address] [address] Potassium, pl 4.1 3.3 - 4.9 mmol/L LEENA Comment:Testing performed by : [address] [address] Chloride 102 97 - 110 mmol/L LEENA Comment:Testing performed by : [address] [address] CO2 25 22 - 32 mmol/L LEENA Comment:Testing performed by : [address] [address] Anion gap 12 2 - 15 mmol/L LEENA Comment:Testing performed by : [address] [address] BUN 14 6 - 25 mg/dL LEENA Comment:Testing performed by : [address] [address] Creatinine 0.60 0.60 - 1.10 mg/dL LEENA Comment:Testing performed by : [address] [address] Glucose 98 70 - 199 mg/dL LEENA [...] classification and Diagnosis of Diabetes Diabetes Care 202; 46: S19-S40. Current interpretive data was last revised 2022. Testing performed by: [address] [address] Calcium 9.7 8.5 - 10.3 mg/dL LEENA Comment:Testing performed by : [address] [address] Bilirubin, total 0.6 0.1 - 1.2 mg/dL [facility] Comment:Testing performed by : [address] [address] Protein, pl 8.3 6.5 - 8.5 g/dL [facility] Comment:Testing performed by : [address] [address] Albumin 4.5 3.5 - 5.0 g/dL [facility] Comment:Testing performed by : [address] [address] Alk phos 70 40 - 130 Units/L LEENA Comment:Testing performed by : [address] [address] ALT 8 7 - 45 Units/L LEENA Comment:Testing performed by : [address] [address] AST 16 10 - 45 Units/L LEENA Comment:Testing performed by : [facility] [address] [place] [address], [place]., [address] Blood 05/20/2024 11:1 7 AM NEWSPAPER DELIVERY COUNSELOR 05/20/2024 1:45 PM NEWSPAPER DELIVERY COUNSELOR us Reji Brandon [place] LAB BLOOD ORDERABLES F inal Result LEENA [address] [facility] [place] [address] * Screening Mammogram Bilateral W Raghav (09/20/2023 [...] age 38, based on guidelines of the [employer] (ACR Practice Parameter for the Performance of Screening and Diagnostic Mammography) and [employer]. For women [...] breast. There has been no suspicious change. us Reji Lott DO IMG MAMMO PROCEDURES F inal Result * Pap and High Risk HPV, reflex to Genotyping (09/04/2022 8:36 AM NEWSPAPER DELIVERY COUNSELOR) Thin prep (Pap test) 09/04/2022 8:36 AM NEWSPAPER DELIVERY COUNSELOR 09/05/2022 8:36 AM NEWSPAPER DELIVERY COUNSELOR Narrative PATHOLOGY [facility] - 09/07/2022 3:09 PM NEWSPAPER DELIVERY COUNSELOR [facility] Department of Pathology [address] [place] [address] Final Report with Addendum Note to Patients: [...] the details. Patient Name: ??ELISE GARBERLebron Address: ??[address] [place] [address] , ?? [place], [place] [address] Gender: ??F : ??1970 (Age: 52) Service: ?? Location: ?? Hospital #: ??[id number] Patient Type: ??[facility] SPECIMEN Taken: ??09/04/2022 Received: ??09/05/2022 Accessioned:: ??09/06/2022 Reported: ??09/07/2022 Physician(s): Monique Edouard M.D. [facility] Diagnosis: Source of Specimen: ? SCREENING THIN PREP IMAGED PAP w/ HPV: Specimen Adequacy: ? - Satisfactory for evaluation; endocervical/transformation zone component present ? General Categorization: ? - Negative for intraepithelial lesion or malignancy ? MARY Aguilar(ASCP) Report Electronically Reviewed and Signed Out By [...] determined by the Surgical Pathology Department at [facility] as part of an ongoing quality control systems manager program and in compliance with federally mandated [...] characteristics determined by the Surgical Pathology Department [facility]. ??It has not been cleared or approved by the U. S. Food and Drug Administration. Monique Edouard MD LAB CYTOLOGY ORDERABLES Final Result [facility] from Last 3 Months or Most Recently Relevant to Health Maintenance Insurance [place] [address] Care Teams Jewel Bearing Facer Relationship Specialty Start Date End Date Reji Lott DO [address] [place] [address] [phone] PCP - General Family Medicine 08/22/23 Reji Lott DO [address] [place] [address] [phone] Family Practice 07/12/23
--- OUTSIDE RECORDS SUMMARY | 2024-08-04 10:38 | XMS_ITS | Encounter Summary ---
Author Organization [facility] Address [address] [place] [address]. [place] [address] [place] [address] Care Team Providers Care Applications Sales Consultant Name Role Phone Reji Lott DO Primary Care Provider [phone] Dayton Farris MD Unavailable [phone] Ashanti Palm MD Unavailable Encounter Details Date Type Department Care Team (Late st Contact Info) Description 04/09/[address] [facility] [place] [address] Jordyn Santana, PT Social History Tobacco Use Types Packs/Day Years Used Date Smoking Tobacco: Never Smokeless Tobacco: Never Alcohol Use Standard Drinks/Week Comments No 0 (1 standard drink = 0.6 oz pur e alcohol) Comments No Sex and Gender Information Value Date Recorded Sex Assigned at Not on file Legal Sex Female 7:32 PM CDT Gender Identity Not on file Sexual Orientation Not on file documented as of this encounter Progress Notes * Jordyn Mari, PT - 04/09/2018 11:30 AM CDT Elise Yadav [place] 1970 [id number] Patient arrived to therapy this morning and reported she felt like her heart was racing. Allowed patient to sit for 10 min before taking vitals: HR 100bpm, O2: 98%, BP 190/100. Patient denied dizzy/lightheadedness and reported she ate breakfast and had a normal morning routine. Allowed patient to sit for 10 more minutes and discussed warning signs of heart attack and stroke. After 10 min, BP 194/92. Patient requested JORDYN MARI PT, DPT call her PCP, [facility]. JORDYN MARI PT, DPT 04/09/2018 12:17 PM documented in this encounter Plan of Treatment Not on file documented as of this encounter Visit Diagnoses Diagnosis Pelvic floor dysfunction- Primary Pelvic muscle wasting documented in this encounter Care Teams Applications Sales Consultant Relationship Specialty Start Date End Date Reji Lott DO PCP - General 04/27/16 Dayton Farris MD [facility] [address] [place] [address] [place] [employer] Pantograph Operator CARDIOVASCULAR DISEASE 07/16/19 Ashanti Palm MD [address] [place] [address] ENDOCRINOLOGY 07/24/22 documented as of this encounter
--- OUTSIDE RECORDS SUMMARY | 2024-08-04 10:38 | XMS_ITS | Data Portability ---
Author Organization [place] - [facility], Main Office Address [address] [place] [address] Care Team Providers Care Cook Sauce Name Role Phone ZENAIDA MARY Primary Care Provider Assessment No assessment recorded. Plan of Treatment Reminders Order Date Submit Date Provider Last Modified By Organization Details Last Modified Time Details Appointments None recorded. Lab lipid panel, serum 2022 023 [email or web address] Not available 11:59:53 TSH + free T4, serum 2022 023 [email or web address] Not available 11:59:53 T3, free, serum or plasma 2022 023 [email or web address] Not available 11:59:53 thyroid peroxidase (tpo) Ab, serum 2022 023 [email or web address] Not available 11:59:53 tsi (thyroid-st imulating immunoglobu susannah), serum 2022 023 Not available 11:59:53 CMP, serum or plasma 2022 023 [email or web address] Not available 11:59:53 Referral None recorded. Procedures None recorded. Surgeries None recorded. Imaging None recorded. Medication Orders Flovent Diskus 250 mcg/actuati on powder for inhalation 2022 023 [id number], [address], [place], [id number], 11:40:17 Arnuity Ellipta 200 mcg/actuati on powder for inhalation 2022 023 [facility] #[id number], [address] [place], [place], [id number], 3 10:46:09 omega-3 acid ethyl esters 1 gram capsule 2022 023 [facility] #54827, [address], [place], [id number], 3 11:59:39 metoprolol succinate ER 25 mg tablet,exte nded release 24 hr 2022 023 [facility] #15118, [address], [place], [id number], 3 11:59:06 methimazole 5 mg tablet 2022 023 [facility] #29342, [address], [place], [id number], 3 11:59:05 Patient TargetsNo targets recorded. Patient InstructionsNo instructions recorded. Reason for Referral None Reported. Results Created Date Observation Date Name Description Value Unit Range Abnormal Flag Note LastModifiedBy Organization Detail LastModifiedTime 12/30/1912/29/2022 HEMOG LOBIN A1C HA1C 6.0 % 4.0-6. 0 Diabe maya Scree joe Crite pablito: <5.7% Consi stent with absen ce of diabe maya 5.7-6 .4% Consi stent with incre ased risk for diabe maya (pred iabet es) >OR=6 .5% Consi stent with diabe maya REFER ENCE: Diabe maya Care 2016, 39(Kenney ppl.1 ):s13 -s22 Not Available [facility] ([facility]) [address] [facility], [place], [address], 12/29/2022 14:54:35 12/30/1912/29/2022 COMPR EHENS ANKUR METAB OLIC PANEL sodium 141 mmol/ L 137-14 5 Not Available [facility] (Lab) [address] [place], [address], 12/29/2022 18:30:50 12/30/1912/29/2022 COMPR EHENS ANKUR METAB OLIC PANEL potassium 3.8 mmol/ L 3.5-5. 1 Not Available [facility] (Lab) [address] [place], [address], 12/29/2022 18:30:50 12/30/1912/29/2022 COMPR EHENS ANKUR METAB OLIC PANEL chloride 106 mmol/ L 98-107 Not Available [facility] (Lab) [address] [place], [address], 12/29/2022 18:30:50 12/30/1912/29/2022 COMPR EHENS ANKUR METAB OLIC PANEL carbon dioxide 24 mmol/ L 22-30 Not Available [facility] (Lab) [address] [place], [address], 12/29/2022 18:30:50 12/30/19 23 12/29/2022 COMPR EHENS ANKUR METAB OLIC PANEL anion gap 14.8 mmol/ L 14-22 Not Available [facility] (Lab) [address] [place], [address], 12/29/2022 18:30:50 12/30/1912/29/2022 COMPR EHENS ANKUR METAB OLIC PANEL glucose 99 mg/dL 70-99 Not Available [facility] (Lab) [address] [place], [address], 12/29/2022 18:30:50 12/30/1912/29/2022 COMPR EHENS ANKUR METAB OLIC PANEL BUN 12 mg/dL 8-19 Not Available [facility] (Lab) [address] [place], [address], 12/29/2022 18:30:50 12/30/19 23 12/29/2022 COMPR EHENS ANKUR METAB OLIC PANEL creatinine 0.62 mg/dL 0.66-1 .25 low Not Available [facility] (Lab) [address] [place], [address], 12/29/2022 18:30:50 12/30/19 23 12/29/2022 COMPR EHENS ANKUR METAB OLIC PANEL GFR >60 Refer ence Range : [place] ge GFR Healt hy Adult : >60 mL/mi n/1.7 3 m2 Chron ic Kidne y Disea se: 15-60 mL/mi n/1.7 3 m2 Kidne y Failu re: <15/m L/min /1.73 m2 www.n iddk. nih.g ov The MDRD study equat ion has not been valid ated in child clarissa <18 years of age; pregn ant women ; the elder ly >85 years of age; or in some racia l or ethni c subgr oups, such as Hisme nics. Outsi de the valid ated wali eters , estim ated GFR is less accur ate, requi ring clini rafael judgm ent on a case- by-ca se basis . Clini rafael inter preta tion for other races and ages must be made by the clini thelma. The MDRD study equat ion has not been valid ated for the evalu ation of serum creat inine relat ed to nutri louisa l statu s or medic ation usage . For perso ns <18 years of age, a pedia tric GFR calcu lator is avail able on the NKF websi te: https ://mg w.kid delphine.o rg/pr ofess ional s/kdo qi/gf r_cal culat or Not Available [facility] (Lab) [address] [place], [address], 12/29/2022 18:30:50 12/30/1912/29/2022 COMPR EHENS ANKUR METAB OLIC PANEL alkaline phosphatase 55 U/L 38-126 Not Available [facility] (Lab) [address] [place], [address], 12/29/2022 18:30:50 12/30/1912/29/2022 COMPR EHENS ANKUR METAB OLIC PANEL alanine aminotransfe rase 17 U/L 0-35 Not Available [facility] (Lab) [address] [place], [address], 12/29/2022 18:30:50 12/30/1912/29/2022 COMPR EHENS ANKUR METAB OLIC PANEL aspartate aminotransfe rase 25 U/L 15-37 Not Available [facility] (Lab) [address] [place], [address], 12/29/2022 18:30:50 12/30/1912/29/2022 COMPR EHENS ANKUR METAB OLIC PANEL bilirubin, total 0.60 mg/dL 0.20-1 .30 Not Available [facility] (Lab) [address] [place], [address], 12/29/2022 18:30:50 12/30/1912/29/2022 COMPR EHENS ANKUR METAB OLIC PANEL calcium 8.9 mg/dL 8.4-10 .2 Not Available [facility] (Lab) [address] [place], [address], 12/29/2022 18:30:50 12/30/1912/29/2022 COMPR EHENS ANKUR METAB OLIC PANEL total protein 7.5 g/dL 6.3-8. 2 Not Available [facility] (Lab) [address] [place], [address], 12/29/2022 18:30:50 12/30/19 23 12/29/2022 COMPR EHENS ANKUR METAB OLIC PANEL albumin 3.9 g/dL 3.4-5. 0 Not Available [facility] (Lab) [address] [place], [address], 12/29/2022 18:30:50 12/30/19 23 12/29/2022 COMPR EHENS ANKUR METAB OLIC PANEL globulin 3.6 g/dL 2.6-4. 2 Not Available [facility] (Lab) [address] [place], [address], 12/29/2022 18:30:50 12/30/19 23 12/29/2022 COMPR EHENS ANKUR METAB OLIC PANEL A/G ratio 1.1 ratio 1.0-2. 0 Not Available [facility] (Lab) [address] [place], [address], 12/29/2022 18:30:50 12/30/1912/29/2022 LIPID PANEL cholesterol 197 mg/dL 140-19 9 [facility] EMILY NSUS RECOM MENDA TION FOR RENETTA STERO L: ADULT CHILD LOW RISK: <200 <170 BORDE RLINE : <200- 239 ----- HIGH RISK: >240 >200 Not Available [facility] (Lab) [address] [place], [address], 12/29/2022 18:30:55 12/30/1912/29/2022 LIPID PANEL triglyceride s 120 mg/dL 0-150 NIH EMILY NSUS REPOR T RECOM MENDA TION FOR TRIGL YCERI FELICIANO: ADULT CHILD LOW RISK: <150 ----- BODER LINE: 150-1 99 ----- HIGH RISK: >200 ----- Not Available [facility] (Lab) [address] [place], [address], 12/29/2022 18:30:55 12/30/1912/29/2022 LIPID PANEL HDL cholesterol 45 mg/dL 40- Not Available [facility] (Lab) [address] [place], [address], 12/29/2022 18:30:55 12/30/1912/2912/29/2022 LIPID PANEL LDL cholesterol, calculated 128 mg/dL 0-130 NIH EMILY NSUS REPOR T RECOM MENDA TIONS FOR LDL: ADULT CHILD LOW RISK <130 <110 (OPTI MAL LDL) <100 ----- BORDE RLINE : 130-1 59 ----- HIGH RISK: >160 >130 A TRIGL YCERI DE RESUL T >400 INVAL IDATE S THE CALCU LATIO N FOR LDL FRACT IONAT ION - THE LDL RESUL T WILL NOT BE REPOR MARCO. Not Available [facility] (Lab) [address] [place], [address], 12/29/2022 18:30:55 12/30/1912/29/2022 T3 FREE free T3 3.3 pg/mL 2.77-5 .27 Not Available [facility] (Lab) [address] [place], [address], 12/29/2022 18:56:21 12/30/19 23 12/29/2022 T4 FREE free T4 1.48 NG/dL 0.78-2 .19 Not Available [facility] (Lab) [address] [place], [address], 12/29/2022 18:56:24 12/30/19 23 12/29/2022 TSH thyroid-stim ulating hormone 1.350 uIU/m L 0.465- 4.680 Not Available [facility] (Lab) [address] [place], [address], 12/29/2022 19:09:08 12/30/19 23 12/31/2022 THYRO ID PEROX IDASE (TPO) AB thyroid peroxidase (tpo) Ab 159 IU/mL 0-34 high Perfo rmed at: [facility] [address] [id number] Lab Direc tor: Willie juares PhD, Phone : [phone] Not Available [facility] (Lab) [address] [place], [address], 12/31/2022 07:08:24 12/30/19 23 01/01/2023 INSUL IN insulin 7.6 uIU/m L 2.6-24 .9 Perfo rmed at: [facility] Lacie hand [address] [place] [address] Lab Direc tor: Willie juares PhD, Phone : [phone] Not Available [facility] (Lab) [address] [place], [address], 01/01/2023 13:08:39 12/30/19 23 01/02/2023 THYRO ID STIM IMMUN OGLOB ULIN thyroid stim immunoglobul in 1.17 IU/L 0.00-0 .55 high Perfo rmed at: [facility] [address] [address] Lab Direc tor: Quita dunn MD, Phone : [phone] Not Available [facility] (Lab) [address] [place], [address], 01/02/2023 15:10:21 Result Notes None recorded. Problems Name Problem SNOMED Code Status Onset Date Resolution Date Notes Provider Name and Address Organization Details Recorded Time Asthma 246608680 Active 2021 Not Available [facility] 3 12:21:00 Gastroesophag eal reflux disease without esophagitis 148916757 Active 2022 Not Available [facility] 3 12:21:00 Mixed hyperlipidemi a 061237967 Active 2021 Not Available [facility] 3 12:21:00 Hyperthyroidi sm 36780942 Active 2018 Not Available [facility] 3 12:21:00 Hypertensive disorder 34289446 Active 2018 Not Available [facility] 3 12:21:01 Cough 88786707 Active 2021 Not Available [facility] 3 12:21:01 Wheezing 95324739 Active 2021 Not Available [facility] 3 12:21:01 Dyspnea on exertion 93559465 Active 2021 Not Available [facility] 3 12:21:01 Prediabetes 926655051 Active 2021 Not Available [facility] 3 12:21:01 Congestion of nasal sinus 07558218 Active 2021 Not Available [facility] 3 12:21:01 Autoimmune thyroiditis 03337102 Active 2022 Not Available [facility] 3 12:21:01 Essential hypertension 38399140 Active 2022 Not Available [facility] 3 12:21:01 Problem Notes None recorded. Medical Equipment None Reported. Allergies Allergen ID Allergen Name Allergen Category Reaction Reaction Severity Criticality Documentation Date Start Date Code Code System Note Provider Name and Address Organization Details Recorded Time 3203 ciproflox acin medicatio n Not available Not available Not available 09/06/2022 2551 RxNorm Not Available [facility] 3 02:34:00 Medications Name Sig Start Date Stop Date Status Note LastModified by Organization Details LastModified Time azithromyci n 250 mg tablet TK 2 TS PO FOR 1 DAY THEN TK 1 T PO QD FOR 4 DAYS 05/02 completed Not Available Not Available Not Available famotidine 40 mg tablet TAKE 1 TABLET BY MOUTH EVERY DAY DIRECTED active Not Available Not Available No t Available prednisone 20 mg tablet TK 2 TS PO QD FOR 5 DAYS 12/25 completed Not Available Not Available Not Available phenazopyri dine 100 mg tablet TAKE 1 TABLET BY MOUTH THREE TIMES DAILY NEEDED FOR PAIN active Not Available Not Available No t Available benzonatate 100 mg capsule TK 1 C PO Q 8 H PRN 12/25 completed Not Available Not Available Not Available cephalexin 500 mg capsule 12/06 completed Not Available Not Available Not Available losartan 25 mg tablet 01/04 completed Not Available Not Available Not Available nitroglycer in 0.[address] ONE TABLET UNDER TONGUE NEEDED FOR CHEST PAIN EVERY 5 MINUTES. IF 3RD DOSE NEEDED CALL 911 active Not Available Not Available No t Available methimazole 5 mg tablet TAKE 1 TABLET BY MOUTH EVERY OTHER DAY IN THE MORNING active Not Available Not Available No t Available hydrochloro thiazide 25 mg tablet TK 1 T PO QAM 05/02 completed Not Available Not Available Not Available metoprolol succinate ER 25 mg tablet,exte nded release 24 hr TAKE 1 TABLET BY MOUTH DAILY active Not Available Not Available No t Available ergocalcife rol (vitamin D2) 1,250 mcg (50,000 unit) capsule TAKE 1 CAPSULE BY MOUTH EVERY WEEK IN THE MORNING active Not Available Not Available No t Available azelastine 137 mcg (0.1 %) nasal spray USE 2 SPRAYS IN EACH NOSTRIL TWICE DAILY DIRECTED active Not Available Not Available No t Available albuterol sulfate HFA 90 mcg/actuati on aerosol inhaler INHALE 2 PUFFS BY MOUTH EVERY 4 TO 6 HOURS NEEDED active Not Available Not Available No t Available methimazole 10 mg tablet TK 1 T PO QD B MEALS active Not Available Not Available No t Available fluticasone propionate 50 mcg/actuati on nasal spray,suspe nsion SHAKE LQ AND U 2 SPRAYS IEN QD PRN active Not Available Not Available No t Available metformin ER 500 mg tablet,exte nded release 24 hr TAKE 1 TABLET BY MOUTH EVERY DAY 01/04 completed Not Available Not Available Not Available amoxicillin 875 mg-potassiu m clavulanate 125 mg tablet TK 1 T PO Q 12 H 05/02 completed Not Available Not Available Not Available omega-3 acid ethyl esters 1 gram capsule TAKE 1 CAPSULE BY MOUTH TWICE DAILY active Not Available Not Available No t Available Fish Oil 340 mg-1,000 mg capsule TAKE 1 CAPSULE BY MOUTH TWICE DAILY BEFORE MEALS active Not Available Not Available No t Available hydrochloro thiazide 12.5 mg tablet 01/04 completed Not Available Not Available Not Available Flovent Diskus 250 mcg/actuati on powder for inhalation INHALE 1 PUFF BY MOUTH TWICE DAILY DIRECTED active Not Available Not Available No t Available omega 3-dha-epa-f eugenio oil 1,000 mg (120 mg-180 mg) capsule Take 1 capsule twice a day by oral route before meals for 90 days. 01/04 completed Not Available Not Available Not Available Vitamin D3 50 mcg (2,000 unit) capsule Take 1 capsule every day by oral route in the morning for 90 days. active Not Available Not Available No t Available Virtussin AC 10 mg-100 mg/5 mL oral liquid TK 5 ML PO Q 4 H PRF COUGH active Not Available Not Available No t Available Arnuity Ellipta 200 mcg/actuati on powder for inhalation INHALE 1 PUFF BY MOUTH EVERY DAY DIRECTED active Not Available Not Available No t Available Arnuity Ellipta 100 mcg/actuati on powder for inhalation Inhale 1 puff every day by inhalatio n route as directed for 30 days. 12/29 completed Not Available Not Available Not Available Flucelvax Quad (PF) 60 mcg (15 mcg x 4)/0.5 mL IM syringe PHARMACY ADMINISTE RED 01/26 completed Not Available Not Available Not Available Vitals Date Recorded Body mass index (BMI) Body height Oxygen saturation Oxygen saturation in Arterial blood by Pulse oximetry Heart rate Body temperature Body weight Systolic blood pressure Diastolic blood pressure Provider Name and Address Organization Details Last Updated DateTime 3 26 kg/m2 157.48 cm 97 % 97 % 63 /min 97.2 [degF] 37208.1 2 g 115 mm[Hg] 65 mm[Hg] Not Available [facility] 3 02:28:59 Date Recorded Body height Body mass index (BMI) Body weight Body temperature Heart rate Oxygen saturation Oxygen saturation in Arterial blood by Pulse oximetry Systolic blood pressure Diastolic blood pressure Provider Name and Address Organization Details Last Updated DateTime 3 157.48 cm 27.4 kg/m2 63006.8 6 g 97.2 [degF] 65 /min 97 % 97 % 114 mm[Hg] 82 mm[Hg] Tracie Mc [facility] 3 11:12:20 Date Recorded Body height Body mass index (BMI) Body weight Heart rate Body temperature Oxygen saturation Oxygen saturation in Arterial blood by Pulse oximetry Systolic blood pressure Diastolic blood pressure Provider Name and Address Organization Details Last Updated DateTime 3 157.48 cm 27.4 kg/m2 78850.8 6 g 60 /min 96.3 [degF] 98 % 98 % 110 mm[Hg] 62 mm[Hg] Carla Pedraza, [employer]-BC [address] [facility], [place], [address], REYES Osborne Benny [facility] 3 10:44:59 Date Recorded Body height Body mass index (BMI) Body weight Body temperature Heart rate Systolic blood pressure Diastolic blood pressure Provider Name and Address Organization Details Last Updated DateTime 3 157.48 cm 27.3 kg/m2 38208.9 8 g 97.4 [degF] 65 /min 102 mm[Hg] 62 mm[Hg] JALEN Dean [facility] 3 11:43:50 Date Recorded Body height Body weight Body temperature Heart rate Oxygen saturation Oxygen saturation in Arterial blood by Pulse oximetry Systolic blood pressure Diastolic blood pressure Provider Name and Address Organization Details Last Updated DateTime 3 157.48 cm 95387.8 6 g 98.1 [degF] 66 /min 98 % 98 % 110 mm[Hg] 68 mm[Hg] Suzanna Trevizo RN [facility] 3 11:40:40 Social History Question Answer Notes LastModified by Organizat ion Details LastModified Time Tobacco Smoking Status Never Smoker Not Available [facility] 09/06/2022 02:26:02 Do You Have An Advance Directive? No [id number] Information not available 09/06/2022 What Is Your Level Of Alcohol Consumption? None [id number] Information not available 09/06/2022 What Is Your Level Of Caffeine Consumption? Occasional [id number] Information not available 09/06/2022 How Much Tobacco Do You Chew? None [id number] 2450 Information not available 09/06/2022 In The 14 Days Before Symptom Onset, Have You Had Close Contact With A Laboratory-confir med COVID-19 While That Case Was Ill? No [id number] Information not available 09/06/2022 In The 14 Days Before Symptom Onset, Have You Had Close Contact With A Person Who Is Under Investigation For COVID-19 While That Person Was Ill? No [id number] Information not available 09/06/2022 Which Illicit Or Recreational Drugs Have You Used? None [id number] Information not available 09/06/2022 Do You Or Have You Ever Used E-cigarettes Or Vape? Never Used Electronic Cigarettes [id number] Information not available 09/06/2022 Do You Have An Electrostatic Air Filter? No [id number] 3926 Information not available 09/06/2022 What Is Your Occupation? [employer] MIGRATION.[id number] 6939 Information not available 09/06/2022 Do You Have A Humidifier? No [id number] 5290 Information not available 09/06/2022 Do You Have Moisture Problems In Your Home? No [id number] 9243 Information not available 09/06/2022 What Was The Date Of Your Most Recent Tobacco Screening? 01/26/2021 [id number] Information not available 09/06/2022 How Many Children Do You Have? 2 [id number].[id number] 4428 Information not available 09/06/2022 Do You Have Any Pets? No MIGRATION.[id number] 1708 Information not available 09/06/2022 What Is Your Relationship Status? [id number].[id number] 4629 Information not available 09/06/2022 Do You Or Have You Ever Used Smokeless Tobacco? Never Used Smokeless Tobacco MIGRATION.[id number] 9281 Information not available 09/06/2022 Do You Use Any Illicit Or Recreational Drugs? No [email or web address] Information not available 11/15/2022 Have You Recently Traveled Abroad? No MIGRATION.[id number] Information not available 09/06/2022 Sex: Female Functional Status Question Answer Note LastModified by Organizat ion Details LastModified Time What is your exercise level? None [id number] Information not available 09/06/2022 Mental Status None recorded. Family History Nothing Reported. Medical History Condition Response HYPERTHYROIDISM Y EYE PROBLEMS Y BLADDER PROBLEMS Y HYPERTENSION Y Gynecological HistoryNo gynecological history recorded. Obstetrics History GPAL:G 0 P 0 0 0 0 Immunizations Vaccine Type Date Status Note Provider Nam e and Address Organization Details Recorded Time COVID-19, mRNA, LNP-S, PF, 30 mcg/0.3 mL dose 10/24/2020 completed Not Available [facility] 3 12:21:01 COVID-19, mRNA, LNP-S, PF, 30 mcg/0.3 mL dose 10/03/2020 completed Not Available [facility] 3 12:21:01 Past Encounters Encounter ID Performer Location Encounter Start Date Encounter Closed Date Diagnosis/Indication Diagnosis SNOMED-CT Code Diagnosis ICD10 Code Diagnosis Note [id number] [facility] [address] [place] [address] 09/21/2020 00:00:00 09/21/2020 09:59:26 [id number] [facility] [place] [address] [place] [address] 12/21/2020 00:00:00 12/21/2020 10:08:29 [id number] [facility] Pulmon[facility] [place] [address] [place] [address] 01/26/2021 00:00:00 01/26/2021 13:33:49 [id number] [facility] [place] [address] [place] [address] 03/08/2021 00:00:00 03/08/2021 12:46:04 [id number] _ATHENA_M IGRATION_ DEFAULT_1 _1 , 03/17/2021 00:00:00 03/17/2021 10:18:03 [id number] [facility] [place] [address] [place] [address] 06/07/2021 00:00:00 06/07/2021 09:47:39 [id number] [facility] [place] [address] [place] [address] 09/13/2021 00:00:00 09/13/2021 09:54:05 [id number] [facility] [place] [address] [place] [address] 12/06/2021 00:00:00 12/06/2021 09:36:31 [id number] [facility] [place] [address] [place] [address] 12/27/2021 00:00:00 12/27/2021 09:56:14 [id number] [facility] [place] [address] [place] [address] 03/28/2022 00:00:00 03/28/2022 13:19:23 [id number] [facility] [place] [address] [place] [address] 06/06/2022 00:00:00 06/06/2022 11:18:08 [id number] [facility] [place] [address] [facility] [place] [address] 07/18/2022 00:00:00 07/18/2022 16:25:46 [id number] [facility] [place] [address] [place] [address] 07/24/2022 00:00:00 07/24/2022 13:52:02 [id number] RENEE Cummings [facility] [place] [address] [place] [address] 11/15/2022 11:03:43 11/15/2022 12:27:33 Asthma 385314173 J45.909 ACT 22PFT with obstructio n ( in chart)CXR normal 02/2021QFG negativeIG E and RAST normalEosi nophil count 0.4 (0.3 high normal)Alp bradley 1 phenotype MM normal. Level 108.Trial FLovent if affordable Instructed on techniqueS he is aware to rinse and spit after use.Contin ue Albuterol PRN, she is aware of indication s for useDiscuss ed reportable signs and symptomsRT C in 4 months PRN for concerns. Dyspnea on exertion 6084 5006 R06.09 BNP normal.Ech o with diastolic dysfunctio n.Follows with cardiology , Dr Craven ease exerciseWe ight lossICS as as above Cough 37577795 R05.9 Resolved with ArnuityCon tinue ICS [id number] KIRK Cummings [facility] [place] [address] [facility] [place] [address] 12/29/2022 10:07:13 01/01/2023 07:55:53 Asthma [id number] J45.909 ACT 17 on FLovent, 22 on ArnuityPFT with obstructio n ( in chart)CXR normal 02/2021QFG negativeIG E and RAST normalEosi nophil count 0.4 (0.3 high normal)Alp bradley 1 phenotype MM normal. Level 108.She has tried and failed Flovent.Wi ll attempt a tier exception or PA for Arnuity, as this provided excellent clinical benefit.In structed on techniqueS he is aware to rinse and spit after use.Contin ue Albuterol PRN, she is aware of indication s for useDiscuss ed reportable signs and symptomsRT C in 4 months PRN for concerns. Dyspnea on exertion 6084 [id number] R06.09 BNP normal.Ech o with diastolic dysfunctio n.Follows with cardiology , Dr Craven ease exerciseWe ight lossICS as as above Cough [id number] R05.9 Resolved with Arnuity, worse with FloventCon tinue ICS, re-ordered arnuity as above [id number] Ashanti Palm MD [facility] [address] [place] [address] 01/04/2023 11:25:07 01/04/2023 12:19:54 Autoimmune thyroiditis [id number] E06.3 TSH and FT4 in ideal range- TSI/TPO remain elevated- continue on lowest dose methimazol e at 5 mg every other day as patient tolerating well and weight stable. Encouraged cocoa bean cleaner diet restrictiv e of processed foods /refined sugars. Recommende d a thyroid supplement similiar to actalin by Dr. Matt Curtis that contains, iodine, magnesium, manganese, carnitine and other elements to help maintain endogenous thyroid function and help to reduce swelling to take in meantime to help reduce time frame to burn out and to help with fatigue, hair thinning etc. Essential hypertension [id number] I10 Continue metoprolol as blood pressure in range. Mixed hyperlipidemia [id number] E78.2 LDL and TG levels in range since start of fish oil. Spent up to 28 minutes preparing to see the patient (eg, review of tests), obtaining and/or reviewing separately obtained history, performing a medically appropriat e examinatio n and evaluation , counseling and educating the patient, ordering medication s, tests, along with documentin g clinical informatio n in the electronic health record, independen tly interpreti ng results and communicat ing results to the patient. RTC in 6 months. Patient was provided a handwritte n lab order which contains our fax number. If she chooses to go outside of the [facility] system to obtain labwork she was advised to provide our fax number and my informatio n to the lab she will be obtaining labwork from in order to have her labs properly forwarded over for me to review so there is no loss of follow up due to use of outside network. She was also advised to contact our clinic informing us that she has completed her labwork so we are aware we will need to reach out to the appropriat e laboratory to request her results be forwarded to us so I might have the ability to review and make further medical decision making in her case. She voiced understand ing. [id number] Carla Pedraza, [facility] Pulmonolo gy Flo Nazario [address] [place] [address] 02/28/2023 11:25:50 02/28/2023 14:11:34 Asthma [id number] J45.909 ACT 17 on FLovent, 20 today on ArnuityShe has tried and failed Flovent, Arnuity has been approved by [facility] FT with obstructio n ( in chart)CXR normal 02/2021QFG negativeIG E and RAST normalEosi nophil count 0.4 (0.3 high normal)Alp bradley 1 phenotype MM normal. Level 108.Instru cted on techniqueS he is aware to rinse and spit after use.Contin ue Albuterol PRN, she is aware of indication s for useDiscuss ed reportable signs and symptomsRT C in 6-8 months PRN for concerns. Health Concerns Section Related Observation LastModified by Organization Detai ls LastModified Time None Recorded Concern Status LastModified by Organization Details LastModified Time None Recorded Advance Directives Directive N: Payers Encounter Date Sequence Insurance Name Policy Number Policy Morales Covered Member ID Morales Member ID Guarantor Name 11/15/2022 1 [place] [id number] Vivian V Beckett [id number] [facility] 12/29/2022 1 [place] [id number] Vivian V Beckett [id number] 09 [facility] 01/04/2023 1 [place] [id number] Vivian V Beckett [id number] 09 Elise Mckeon 02/28/2023 1 [place] [id number] Vivian V Beckett [id number] Elise Mckeon Notes Date Note Type Note Provider Name and Address Organization Details Recorded Time 11/15/2022 text/html Ms Linda barahona today to follow up on asthma, dyspnea, cough, congestionHe has significant benefit from Arnuity 200 but this is now unaffordableShe is requesting a different inhaler R/T costHas had almost complete resolution of nasal congestion with azelastineDenies cough and wheezingAlso with dyspnea during exertional activityNo shortness of breath at restRescue MDI use is decreasedCompliant with Arnuity 200 one puff dailyEndorses xerostomia, this is unchangedNo wheezing or chest tightnessNo exacerbation or URI in > than a year requiring steroids or antibiotics.She denies edema, dysphagiaReports GERD symptoms have improved KIRK Cummings [address], [place], [address], [employer] 11/15/2022 13:49:56 12/29/2022 text/html Ms Linda hancock ts today to follow up on asthma, dyspnea, cough, congestionHad significant benefit from Arnuity 200 but this is became unaffordableHas been on FLovent for about 6 weeks with increase in dyspnea, cough, rescue MDI use.Asthma control is worse with FloventShe would like to see if there is some way to go back to Arnuity that she can afford.Has had almost complete resolution of nasal congestion with azelastineNo shortness of breath at restEndorses xerostomia, this is unchangedHas had some wheezing and chest tightness since starting FLoventNo exacerbation or URI in > than a year requiring steroids or antibiotics.She denies edema, dysphagiaReports GERD symptoms have improved KIRK Cummings [address], [place], [address], [employer] 12/31/2022 17:47:21 01/04/2023 text/html 52 yo female com es in for follow up in management of hyperthyroidism, prediabetes (A1C of 6% down from 6.1%), hypertension and mixed dyslipidemia. last seen in July at that time we continued natural insulin sensitizers as she did not like metformin. we continued methimazole 5 mg every other day. we continued metoprolol for BP control. we continued fish oil and TG/LDL in more ideal range. She has good energy and weight is stable. She has good digestion- no constipation- she had diarrhea from bad food last weekend. She has better controlled asthma. She sees Carla Pedraza for this and doing well. labs from 12/29/22:a1c 6%TSH of 1.350 uIU/mlFT4 of 1.48 ng/dLFT3 of 3.3 pg/mLTPO 159 IU/mlTSI 1.17insulin 7.6 uU/ml197/120/45/128gluc ose 99 mg/dLLFT normalCr normal Ashanti Palm MD [address], [place], [address], [employer] 01/04/2023 13:50:58 02/28/2023 text/html Ms Linda hancock ts today to follow up on asthma, dyspnea, cough, congestionHer Arnuity has been approved by insurance and she tells me that it works much better than the Flovent.Continues to have dyspnea with stairs but improvedComplete resolution of nasal congestion with azelastineNo shortness of breath at restEndorses xerostomia, this is unchangedNo exacerbation or URI in > than a year requiring steroids or antibiotics.She denies edema, dysphagiaReports GERD symptoms have improved Carla Pedraza, [employer] [address], [place], [address], [employer] 02/28/2023 16:24:43 OBGyn Episode No OBEpisode recorded.
--- OUTSIDE RECORDS SUMMARY | 2024-08-04 10:38 | XMS_ITS | Clinical Summary ---
Author Organization [facility] Address [address] [place] [address]. [place] [address] [place] [address] Care Team Providers Care Rental Salesperson Name Role Phone Mary Lott DO Primary Care Provider [phone] Dayton Farris MD Unavailable [phone] Ashanti Palm MD Unavailable Allergies Active Allergy Reactions Criticality Noted Date Comments Ciprofloxacin Swelling 10/29/2017 Medications albuterol sulfate HFA 108 (90 Base) MCG/ACT inhaler Inhale 2 puffs into the lungs every 6 (six) hours as needed for Wheezing. Active methIMAzole (TAPAZOLE) 5 MG tablet Take 5 mg by mouth every other day. Active azelastine (ASTELIN) 0.1 % nasal spray 06/06/2022 Active ARNUITY ELLIPTA 200 MCG/ACT AEROSOL POWDER, BREATH ACTIVATED INHALE 1 PUFF BY MOUTH EVERY DAY DIRECTED 07/03/2022 Active Active Problems Problem Noted Date Diagnosed Date Type 2 diabetes mellitus wit h other specified complication ([facility]/HCC [facility]HS/HCC) 05/23/2021 LUNA (dyspnea on exertion) 07/29/2019 Precordial pain 07/29/2019 Hypertension 04/09/2018 Pelvic organ prolapse quantification stage 4 cys tocele 03/08/2016 External hemorrhoids 09/28/2014 Asthma ([facility]/HCC) Hyperthyroidism Resolved Problems Problem Noted Date Diagnosed Date Resolved Date Cervical cancer screening 04/17/2018 Yeast vaginitis 10/19/2014 02/14/2019 Visit for routine life skills coach exam 09/28/2014 0 03/19/2020 Encounter for preventive health examination 09/16/2014 03/19/2020 Immunizations Name Administration Dates Next Due Flublok (Quadrivalent) 04/08/2019 Flucelvax 6 Months+ (Prefill ed Syringe) 04/08/2020 Influenza (Generic) 03/16/2017,04/07/2016 Influenza Adult (Generic) 03/19/2023,,02/25/2021, 020,03/15/2018,03/27/2015 PFIZER COVID-19 (ORIGINAL FORMULATION, PURPLE CAP) mRNA, LNP-S, PF, 30 MCG/0.3 ML DOSE 10/24/2020,10/03/2020 Family History Relation Status Comments Father Mother Social History Tobacco Use Types Packs/Day Years Used Date Smoking Tobacco: Never Smokeless Tobacco: Never Alcohol Use Standard Drinks/Week Comments No 0 (1 standard drink = 0.6 oz pur e alcohol) PHQ-2 Answer Date Recorded PHQ-2 Score - If the patient scores above 3, please move on to questions 3-9 0 06/08/2022 Comments No Sex and Gender Information Value Date Recorded Sex Assigned at Not on file Legal Sex Female 7:32 PM CDT Gender Identity Not on file Sexual Orientation Not on file Last Filed Vital Signs Vital Sign Reading Time Taken Comments Blood Pressure 126/76 06/11/2023 7:56 AM FISHING GEAR MECHANIC Pulse 51 06/11/2023 7:56 AM FISHING GEAR MECHANIC Temperature 36.7 ??C (98 ??F) 10/04/2021 6:09 AM CDT Respiratory Rate 18 10/04/2021 6:09 AM CDT Oxygen Saturation 98% 11/14/2022 9:34 AM CDT Inhaled Oxygen Concentration - - Weight 68 kg (150 lb) 06/11/2023 7:56 AM FISHING GEAR MECHANIC Height 156.2 cm (5' 1.5 ) 06/11/2023 7:56 AM FISHING GEAR MECHANIC Body Mass Index 27.88 06/11/2023 7:56 AM FISHING GEAR MECHANIC Plan of Treatment Health Maintenance Due Date Last Done Comments Colorectal Cancer Screening Colonoscopy (10 Years) 1968 Kidney Health Evaluation 1968 Pneumococcal Vaccine: Pediatrics (0 to 5 Years) and At-Risk Patients (6 to 64 Years) (1 of 2 - PCV) 1974 Diabetes: Retinopathy Eye Exam 1986 Hepatitis C 1986 DTaP, Tdap and Td Vaccines (1 - Tdap) 1987 Hepatitis B Vaccines (1 of 3 - 19+ 3-dose series) 1987 Zoster Vaccines (1 of 2) 2018 Hemoglobin A1C 12/07/2022 06/08/2022, 05/23/2021 Cervical Cancer Screening Pap with HPV Testing (Age 30 to 64) Every 5 Years 04/17/2023 04/17/2018 Lipid Panel 06/08/2023 06/08/2022, 07/2021, 05/23/2021, Additional history exists COVID-19 Vaccine ( season) 2024 04/17/2023, 04/01/2022, 06/04/2021, Additional history exists Influenza Adult (#1) 2024 03/19/2023, 03/07/2022, 02/25/2021, Additional history exists Annual Physical 06/11/2024 06/11/2023, 07/2021, 05/23/2021, Additional history exists Mammogram Screening 06/29/2024 06/29/2022, 06/03/2021, 05/18/2021, Additional history exists Cervical Cancer Screening Pap Smear (Age 30 to 64) Every 3 Years 09/04/2025 09/04/2022, 04/17/2018, 04/17/2018, Additional history exists Cervical Cancer Screening with HPV 09/04/2025 Meningococcal B Vaccine Aged Out No l onger eligible based on patient's age to complete this topic Meningococcal Vaccine Aged Out No everardo tab eligible based on patient's age to complete this topic RSV Immunizations Under 20 Months Aged Out No longer eligible based on patient's age to complete this topic Procedures Procedure Name Priority Date/Time Associated Diagnosis Comments MG SCREENING W STANTON YUMI DIGI Routine 06/29/2022 12:12 PM FISHING GEAR MECHANIC Encounter for screening mammogram for malignant neoplasm of breast LIPID PANEL Routine 06/08/2022 9:29 AM FISHING GEAR MECHANIC Type 2 diabetes mellitus with other specified complication, without long-term current use of insulin ([facility] HHS/HCC) HEMOGLOBIN, GLYCOSYLATED Routine 06/08/2022 9:29 AM FISHING GEAR MECHANIC Type 2 diabetes mellitus with other specified complication, without long-term current use of insulin ([facility] HHS/HCC) THINPREP IMAGING SYSTEM PAP Routine 04/17/2018 10:58 AM CDT from Last 3 Months or Most Recently Relevant to Health Maintenance Results * MG SCREENING W STANTON YUIM DIGI (06/29/2022 12:12 PM FISHING GEAR MECHANIC) Anatomical Region Laterality Modality Breast Bilateral Mammography 06/29/2022 1:18 PM FISHING GEAR MECHANIC Narrative 06/29/2022 1:20 PM FISHING GEAR MECHANIC Examination: Digital screening mammogram with CAD. Clinical history: Asymptomatic patient presents for routine screening. History of left breast cyst. Comparison: 06/03/2021, 05/18/2021, 04/07/2019, 04/10/2018, 10/10/2014. Technique: Bilateral digital mammograms. The exam was interpreted with the use of a computer-aided detection (CAD) system. ??Additional 3-D tomosynthesis images were acquired. Tissue density: The breast tissue is heterogeneously dense. Findings: The breast tissue is heterogeneously dense. The dense tissue may obscure some lesions mammographically. ?? 6 mm sharply circumscribed mass at the 6:00 position on the left near the nipple axis reflects the previously documented cyst. No suspicious mass, microcalcification or area of architectural distortion can be identified. From a mammographic standpoint, routine followup in one year would seem adequate. IMPRESSION: No suspicious change since the previous exams. Recommendation: 1: Routine Screening ??Bilateral ??in 1 Year Assessment: ACR BI-RADS 2 - BENIGN FINDING(S) Ordered By: MARY LOTT Interpreted By: Erasmo Hill MD, 06/29/2022 1:18 PM us Mary Lott DO MAMMO Final Resul t * HEMOGLOBIN, GLYCOSYLATED (06/08/2022 9:29 AM FISHING GEAR MECHANIC) HGB A1C 5.7 4.2 - 6.5 % [facility] 06/08/2022 9:29 AM FISHING GEAR MECHANIC Mary Lott DO LABORATORY Final Resul t [facility] [address] [address], * (ABNORMAL) LIPID PANEL (06/08/2022 9:29 AM FISHING GEAR MECHANIC) CHOLESTEROL 213(H) 0 - 199 MG/DL [facility] TRIGLYCERIDES 100 0.00 - 150.00 MG/DL [facility] Comment: NCEP REFERENCE VALUES FOR TRIGLYCERIDES: NORMAL: ? <150 MG/DL BORDERLINE HIGH: ?150 - 199 MG/DL HIGH: ? 200 - 499 MG/DL VERY HIGH: ?>/= 500 MG/DL HDL 47 >40 MG/DL [facility] LDL (CALCULATED) 146(H) 0 - 99 MG/DL [facility] Comment: CUTOFF VALUES RECOMMENDED BY THE NATIONAL CHOLESTEROL EDUCATION PROGRAM: DESIRABLE: ?CHOLESTEROL <200 MG/DL ? LDL <100 MG/DL BORDERLINE: ?? CHOLESTEROL 200-239 MG/DL ?LDL 101-159 MG/DL HIGHER RISK: ??CHOLESTEROL >240 MG/DL ? LDL >160 MG/DL, HDL <40 MG/DL NON HDL CHOLESTEROL 166 NO REFERENCE RANGE MG/DL [facility] Comment: A REASONABLE GOAL FOR NON-HDL CHOLESTEROL IS ONE THAT IS 30 MG/DL HIGHER THAN THE LDL CHOLESTEROL GOAL. CHOL/HDL RATIO 4.5 0.0 - 5.0 . [facility] Comment:IS PATIENT FASTING?- >YES 06/08/2022 9:29 AM FISHING GEAR MECHANIC 06/09/2022 6:39 AM FISHING GEAR MECHANIC us Mary Lott DO LABORATORY [place] [address], * THINPREP IMAGING SYSTEM PAP (04/17/2018 10:58 AM CDT) Report Received CYTOPATHOLOGY - GYNECOLOGIC REPORTDiagnosis:TE ST NAME: ?? THINPREP PAP WITH IMAGERSTATEMENT OF ADEQUACY:UNSATISFA CTORY FOR EVALUATION. SPECIMEN PROCESSED AND EXAMINED, BUTUNSATISFACTORY FOR EVALUATION OF EPITHELIAL ABNORMALITY BECAUSE OF SCANTCELLULARITY. ?? SLIDE SCREENED MANUALLY DUE TO REJECTION BY THE THINPREP IMAGING SYSTEM. MARY NOLASCO (ASCP) ckf/04/25/2018 Report ElectronicallySign ed Specimen:THINPREP PAP WITH IMAGERClinical Diagnosis and HistoryDate of Last Menstrual Period: ? 04/03/18pecimen Source:Cervical/En docervical ?PAP SMEARS ARE SCREENING TESTS SUBJECT TO BOTH FALSE NEGATIVE ANDFALSE POSITIVE RESULTS EVIDENCED BY DATA PUBLISHED IN THE MEDICALLITERATURE. YOUR PATIENT'S RESULT SHOULD BE INTERPRETED IN THIS CONTEXT,TOGETHER WITH THE PATIENT'S HISTORY AND CLINICAL FINDINGS. [facility] TO EPIC CONVERSION 04/17/2018 10:5 8 AM CDT 04/17/2018 10:58 AM CDT Narrative [facility] TO EPIC CONVERSION - 04/25/2018 8:58 AM CDT Order Comment: Report: [id number] 1:42PM by Mary Lott: ??unsatisfactory pap - due to prolapse - she needs to get back in to see Dish Maker Result Communication: Call patient with results us Mary Lott DO PATHOLOGY/CYTOLOGY ORDERABL ES Final Result [facility] TO EPIC CONVERSION from Last 3 Months or Most Recently Relevant to Health Maintenance Insurance [facility] BLUE [facility] Care Teams Rental Salesperson Relationship Specialty Start Date End Date Mary Lott DO PCP - General 04/27/16 Dayton Farris MD [facility] [address] [place] [address] [place] Operation Evaluation Manager CARDIOVASCULAR DISEASE 07/16/19 Ashanti Palm MD [address] [place] [address] ENDOCRINOLOGY 07/24/22
[2024-08-04 11:02] LABS: Total Triiodothyronine (T3) 0.97 NG/ML (0.97-1.69)
[2024-08-04 11:04] LABS: Free T4 Free Thyroxine 1.04 ng/dL (0.78-2.19)
== END 2024-08-04 09:53 | disposition home or self-care (01) ==
PROVIDERS: PCP Family Medicine; Visit Provider Internal Medicine
DX: E78.5 Hyperlipidemia, unspecified (principal); R73.03 Prediabetes; I10 Essential (primary) hypertension; E05.90 Thyrotoxicosis, unspecified without thyrotoxic crisis or storm
CPT/HCPCS: 36415; 84439; 84443; 84480

== ENCOUNTER 2024-10-06 10:39 | Outpatient (CLI) | payer BC, SELFPAY ==
[2024-10-06 11:38] LABS: Alanine Aminotransferase 15 U/L (6-35); Albumin Level 4.6 g/dL (3.5-5.1); Alkaline Phosphatase 74 U/L (38-126); Anion Gap 10 mmol/L (4-12); Aspartate Amino Transferase 21 U/L (14-36); Bilirubin,Total 0.5 mg/dL (0.2-1.3); Blood Urea Nitrogen 16 mg/dL (7-17); Calcium 9.2 mg/dL (8.4-10.2); Carbon Dioxide 23 mmol/L (22-30); Chloride 106 mmol/L (98-107); Cholesterol 222 mg/dL (0-200); Estimated Glomerular Filt Rate > 60; Glucose 105 mg/dL (65-110); HDL Direct 49 mg/dL; Sodium 139 mmol/L (137-145); Triglycerides 178 mg/dL (<150)
[2024-10-06 11:49] LABS: LDL Cholesterol Direct 111 mg/dL
--- OUTSIDE RECORDS SUMMARY | 2024-10-06 11:59 | XMS_ITS | Clinical Summary ---
Author Organization [address] Address [address] [place] [address] Care Team Providers Care Manager Data Warehouse Name Role Phone Reji Lott DO Primary Care Provider Reji Lott DO Unavailable [phone] Allergies Active Allergy Reactions Criticality Noted Date Comments Ciprofloxacin Swelling,Other (See comments) Medium 12/2017 Medications methIMAzole (TAPAZOLE) 5 mg tablet Take 1 tablet (5 mg total) by mouth daily 024 Active Arnuity Ellipta 200 mcg/actuation inhaler Inhale 1 puff daily Rinse mouth with water after use. Do not swallow. 30 each 025 2025 Active albuterol HFA (PROVENTIL HFA,VENTOLIN HFA,PROAIR HFA) 90 mcg/actuation inhaler Inhale 2 puffs every 4 (four) hours as needed for wheezing or shortness of breath 1 each 025 2025 Active fluticasone propionate (FLONASE) 50 mcg/actuation nasal spray Administer 1 spray into each nostril daily 1 each Active metoprolol XL (TOPROL-XL) 25 mg extended release tablet TAKE 1 TABLET(25 MG) BY MOUTH DAILY 90 tablet 1 025 Active docusate sodium (COLACE) 100 mg capsuleIndicat ions:constipat ion Take 1 capsule (100 mg total) by mouth 2 (two) times a day as needed for constipation 60 capsule 025 Active hydrocortisone (ANUSOL-HC) 25 mg suppository Insert 1 suppository (25 mg total) into the rectum 2 (two) times a day as needed for hemorrhoids 15 suppository 025 Active atorvastatin (LIPITOR) 20 mg tabletIndicati ons:Dyslipidem ia TAKE 1 TABLET(20 MG) BY MOUTH DAILY 30 tablet 2 025 Active atorvastatin (LIPITOR) 20 mg tabletIndicati ons:Dyslipidem ia Take 1 tablet (20 mg total) by mouth daily 30 tablet 3 024 2024 Discontinued Active Problems Problem Noted Date Diagnosed Date UTI symptoms 11/05/2023 Assessment & Plan (11/05/2023 11:31 AM CDT): VSS, NAD, no systemic signs of toxicity, non acute abdomen, negative cva tenderness Urine dip unremarkable from infectious standpoint Hx of uterovaginal prolapse, and cystocele, stage 4 Will send off urine and yeast culture Follow up [facility] for abdominal pain, hematuria, dizziness Primary hypertension 08/22/2023 Overview (05/20/2024): Chronic, stable condition not requiring medication Continue diet modification Hyperthyroidism 08/22/2023 Overview (05/20/2024): Following with Endocrinology at [facility] Overall stable on methimazole Continue same medications Diabetes mellitus type II, controlled 08/22/2023 Overview (08/22/2023): Following with Endocrinology at [facility] Not requiring medication A1c 5.14 June 2022 Assessment & Plan (05/20/2024 11:50 AM WEAPONS DESIGNER): Labs today Dyslipidemia 08/22/2023 Overview (05/20/2024): Chronic condition not on medications LDL 146 in June 2022 Continue diet modification Assessment & Plan (05/20/2024 11:51 AM WEAPONS DESIGNER): Check labs Mild intermittent asthma without complication Overview (05/20/2024): Following with pulmonology Dr. Andrew Higgins and stable on Arnuity Continue same medications Routine physical examination 08/22/2023 Overview (08/22/2023): June 11, 2023 Uterovaginal prolapse, incomplete 06/17/2018 Pelvic organ prolapse quantification stage 4 cys tocele 05/07/2018 Resolved Problems Problem Noted Date Diagnosed Date Resolved Date Mild intermittent asthma without complication 08/14/19 24 05/20/2024 Mixed incontinence 02/11/2018 8 Encounters Date Type Department Care Team Description 09/24/2024 12:50 PM CDT - 09/24/2024 11:59 PM CDT Hospital Encounter [facility] Breast Imaging [address] [place] [phone] Screening mammogram, encounter for Discharge Disposition: Discharge to home or self care 08/29/2024 10:28 AM WEAPONS DESIGNER - 08/29/2024 1:32 PM WEAPONS DESIGNER Emergency [facility] Emergency Department [address] [place] [phone] Rocco Iglesias DO Bright red rectal bleeding (Primary Dx); Constipation, unspecified constipation type; History of hemorrhoids Discharge Disposition: Discharge to home or self care 08/29/2024 Nurse Triage [facility] [address] [place] [phone] Reji Lott DO 08/14/2024 3:30 PM WEAPONS DESIGNER Office Visit [facility] at [address] [phone] Angle Fernandez NP Upper respiratory tract infection, unspecified type (Primary Dx); Fluid level behind tympanic membrane of left ear 08/14/2024 Telephone [facility] [address] [place] [address] [place] [phone] Reji Lott DO Symptom Based Call 07/24/2024 11:15 AM WEAPONS DESIGNER Office Visit [facility] Pulmonary [address] [place] [phone] Charlene Morales MD Mild persistent asthma without complication (Primary Dx); Seasonal allergic rhinitis, unspecified trigger; Primary hypertension from Last 3 Months Immunizations Immunization Administration Dates Next Due COVID-19 MRNA (MODERNA) [...] staff should administer the PHQ-9) 0 08/22/2023 Personal Safety Answer Date Recorded Have you ever been in or are you currently in a harmful physical or emotional relationship or is someone making you feel afraid or unsafe? Denies 08/29/2024 Comments No Sex and Gender Information Value Date Recorded Sex Assigned at Not on file Legal Sex Female 3:26 AM WEAPONS DESIGNER Gender Identity Female 03/25/2019 4:31 PM CDT [...] Sign Reading Time Taken Comments Blood Pressure 146/78 08/29/2024 1:20 PM WEAPONS DESIGNER Pulse 70 08/29/2024 1:20 PM WEAPONS DESIGNER Temperature 37.2 C (98.9 F) 08/29/2024 1:20 PM WEAPONS DESIGNER Respiratory Rate 18 08/29/2024 1:00 PM WEAPONS DESIGNER Oxygen Saturation 99% 08/29/2024 1:20 PM WEAPONS DESIGNER Inhaled Oxygen Concentration - - Weight 66.2 kg (145 lb 15.1 oz) 025 10:22 AM WEAPONS DESIGNER Height 157.5 cm (5' 2 ) 08/29/2024 10:2 2 AM WEAPONS DESIGNER Body Mass Index 26.69 08/29/2024 10:22 AM WEAPONS DESIGNER Plan of Treatment Health Maintenance Due Date Last Done Comments Colon Cancer Screening-Colonoscopy 1968 Dilated Eye Exam 1968 Foot Exam 1968 DTaP/Tdap/Td Vaccine (1 - Tdap) 1979 Pneumococcal vaccine <65 (1 of 2 - PCV) 1987 Zoster Vaccine (1 of 2) 2018 Cervical Cancer Screening 09/04/2023 09/04/2022, Depression Screening 08/22/2024 08/22/2023 Regular Well Visit/Exam 18-64 09/09/2024, 09/04/2022, 06/06/2021 Hemoglobin A1C 11/17/2024 05/20/2024 Albumin Creatinine Ratio, Urine 05/20/2025 Lipid Panel 05/20/2025 05/20/2024, 12/0 07/2021, 05/23/2021 eGFR 08/29/2025 08/29/2024, 05/20/2024 Breast Cancer Screening-Mammogram 09/24/2025 09/24/2024, 09/20/2023, 06/29/2022, Additional history exists Covid-19 Vaccine Completed 04/08/2024, 07/2022, 04/01/2022, Additional history exists Influenza Vaccine Completed 04/08/2024, , 03/07/2022, Additional history exists Hepatitis B Screening Completed 05/20/2024 Hepatitis C Screening Completed 05/20/2024 Procedures Procedure Name Priority Date/Time Associated Diagnosis Comments SCREENING MAMMOGRAM BILATERAL W RAGHAV Schedule Routine, Read Routine (OP Routine) 09/24/2024 1:09 PM CDT Screening mammogram, encounter for CT ABDOMEN PELVIS W CONTRAST ED 08/29/2024 12:02 PM WEAPONS DESIGNER EGFR STAT 08/29/2024 10:26 AM WEAPONS DESIGNER DIFFERENTIAL AUTO STAT 08/29/2024 10: 26 AM WEAPONS DESIGNER COMPREHENSIVE METABOLIC PANEL STAT 08/29/2024 10:26 AM WEAPONS DESIGNER CBC WITH AUTO DIFFERENTIAL STAT 08/29/2024 10:26 AM WEAPONS DESIGNER POC INFLUENZA A/B, COVID-19 ANTIGEN Routine 08/14/2024 3:42 PM WEAPONS DESIGNER Upper respiratory tract infection, unspecified type ALBUMIN CREATININE RATIO, URINE Routine 05/20/2024 11:19 AM WEAPONS DESIGNER Controlled type 2 diabetes mellitus without complication, without long-term current use of insulin (HCC) HEPATITIS C ANTIBODY Routine 05/20/2024 11:17 AM WEAPONS DESIGNER Need for hepatitis C screening test HEMOGLOBIN A1C Routine 05/20/2024 11:17 AM WEAPONS DESIGNER Controlled type 2 diabetes mellitus without complication, without long-term current use of insulin (HCC) LIPID PANEL Routine 05/20/2024 11:17 AM WEAPONS DESIGNER Controlled type 2 diabetes mellitus without complication, without long-term current use of insulin (HCC) Dyslipidemia PAP AND HIGH RISK HPV, REFLEX TO GENOTYPING Routine 09/04/2022 8:36 AM WEAPONS DESIGNER Well woman exam from Last 3 Months or Most Recently Relevant to Health Maintenance Results * Screening Mammogram Bilateral W Raghav (09/24/2024 1:09 PM CDT) Anatomical Region Laterality Modality Breast Bilateral Mammography Impressions 09/24/2024 1:57 PM CDT BI-RADS ATLAS category (overall): 2 - Benign There is no mammographic evidence of malignancy. A 1 year screening mammogram is recommended. The patient has been or will be contacted. We recommend annual screening mammography for women at average risk of breast cancer beginning at age 40, based on guidelines of the [employer] (ACR Practice Parameter for the Performance of Screening and Diagnostic Mammography) and [employer]. For women with and elevated risk of breast cancer, please refer to the ACR Practice Parameter for specific screening recommendations. The patient will be entered into a reminder system with a target due date of 1 year for her next screening exam. Narrative 09/24/2024 1:57 PM CDT Screening Mammogram Bilateral W Raghav: 09/24/24 The study was acquired using full field digital technology and interpreted from soft copy. 2D digital mammographic views, as well as 3D digital tomosynthesis were performed in the CC and MLO projections. CLINICAL: Screening mammogram, encounter for. No relevant medical history has been documented for this patient. History of breast cancer in Neg Hx. COMPARISONS: 09/20/2023 Screening Mammogram Bilateral W Raghav 06/29/2022 SCREENING MAMMOGRAM BILATERAL W RAGHAV 06/29/2022 Breast Imaging Screening Outside Reference 06/03/2021 DIAGNOSTIC MAMMOGRAM 2D BILATERAL 06/03/2021 US BREAST LEFT LIMITED BREAST TISSUE: The breasts are heterogeneously dense, which may obscure small masses. FINDINGS: No suspicious masses, suspicious calcifications, or other suspicious findings are seen within either breast. There has been no suspicious change. us Self Screening Mammogram IMG MAMMO PROCEDURES Fi nal Result * CT Abdomen Pelvis W Contrast (08/29/2024 12:02 PM WEAPONS DESIGNER) Anatomical Region Laterality Modality Body N/A Computed Tomogra phy 08/29/2024 12:1 5 PM WEAPONS DESIGNER Narrative 08/29/2024 12:20 PM WEAPONS DESIGNER EXAM DESCRIPTION: CT ABDOMEN PELVIS W CONTRAST REASON FOR STUDY: bright red rectal bleeding, hx hemorrhoids but none seen on exam rectal bleeding with BM x 4 days. Pt states blood is bright red. Pt has hemorrhoids. Denies pain. TECHNIQUE: CT scan of the abdomen and pelvis performed with intravenous and without oral contrast using helical scanning technique with dynamic intravenous contrast injection. Reconstructed coronal and sagittal MPR images reviewed. All images stored on PACS. Automated exposure control was used as a dose optimization technique for this examination. CONTRAST TYPE/DOSE: 100mL of IOVERSOL 350 MG IODINE/ML INTRAVENOUS SYRINGE injected via intravenous COMPARISON: None. FINDINGS: LOWER CHEST: Lung bases are predominantly clear. There is no pleural effusion. LIVER: Liver size and contour normal. No focal hepatic lesion. Portal and hepatic veins are patent. GALLBLADDER: No gallstones or overt inflammatory change. BILE DUCTS: No biliary ductal dilation. SPLEEN: Spleen size normal. No focal splenic lesion. PANCREAS: No pancreatic mass or inflammatory change. ADRENALS: Normal KIDNEYS/URINARY TRACT: No right renal calculus. No left renal calculus. No ureteral calculus. No hydronephrosis. There is a tiny focus of gas in the urinary bladder which is nonspecific. GI: No evidence of bowel obstruction. Few tiny perirectal lymph nodes not pathologically enlarged. The terminal ileum and the appendix are normal. Small sliding hiatal hernia. Stomach and duodenum otherwise normal. No pneumatosis. No abnormal bowel wall thickening. PERITONEUM: No ascites or free air. No mesenteric mass or lymphadenopathy. RETROPERITONEUM: No retroperitoneal mass or lymphadenopathy. REPRODUCTIVE: No significant abnormalities. There is a support device present in the vagina and abutting the cervix. There appears to be a arcuate configuration of the uterus. VASCULATURE: Abdominal aorta is nonaneurysmal. MUSCULOSKELETAL: Bone windows demonstrate no acute or aggressive osseous abnormality. There is trace anterolisthesis L4 on L5. No acute or aggressive osseous abnormality. OTHER: No other abnormality. IMPRESSION: No evidence of an acute abnormality of the abdomen and pelvis. Tiny focus of gas in the urinary bladder is nonspecific, correlation with urinalysis recommended. Small sliding hiatal hernia. THIS IS AN ELECTRONICALLY VERIFIED FINAL REPORT 08/29/2024 12:20 PM - Electronically signed by Abram Wiley M.D. CH: LORENZO Report ID: [id number] Reading Location: [id number] Procedure Note Abram Wiley Jr., MD - 08/29/2024 EXAM DESCRIPTION: CT ABDOMEN PELVIS W CONTRAST REASON FOR STUDY: bright red rectal bleeding, hx hemorrhoids but noneseen on exam rectal bleeding with BM x 4 days. Pt states blood is bright red. Pt has hemorrhoids. Denies pain. TECHNIQUE: CT scan of the abdomen and pelvis performed with intravenousand without oral contrast using helical scanning technique with dynamic intravenous contrast injection. Reconstructed coronal and sagittal MPRimages reviewed. All images stored on PACS. Automated exposure control was usedas a dose optimization technique for this examination. CONTRAST TYPE/DOSE: 100mL of IOVERSOL 350 MG IODINE/ML INTRAVENOUSSYRINGE injected via intravenous COMPARISON: None. FINDINGS: LOWER CHEST: Lung bases are predominantly clear. There is no pleural effusion. LIVER: Liver size and contour normal. No focal hepatic lesion. [place] hepatic veins are patent. GALLBLADDER: No gallstones or overt inflammatory change. BILE DUCTS: No biliary ductal dilation. SPLEEN: Spleen size normal. No focal splenic lesion. PANCREAS: No pancreatic mass or inflammatory change. ADRENALS: Normal KIDNEYS/URINARY TRACT: No right renal calculus. No left renal calculus.No ureteral calculus. No hydronephrosis. There is a tiny focus of gas inthe urinary bladder which is nonspecific. GI: No evidence of bowel obstruction. Few tiny perirectal lymph nodesnot pathologically enlarged. The terminal ileum and the appendix are normal. Small sliding hiatal hernia. Stomach and duodenum otherwise normal. No pneumatosis. No abnormal bowel wall thickening. PERITONEUM: No ascites or free air. No mesenteric mass orlymphadenopathy. RETROPERITONEUM: No retroperitoneal mass or lymphadenopathy. REPRODUCTIVE: No significant abnormalities. There is a support device present in the vagina and abutting the cervix. There appears to be aarcuate configuration of the uterus. VASCULATURE: Abdominal aorta is nonaneurysmal. MUSCULOSKELETAL: Bone windows demonstrate no acute or aggressive osseous abnormality. There is trace anterolisthesis L4 on L5. No acute oraggressive osseous abnormality. OTHER: No other abnormality. IMPRESSION: No evidence of an acute abnormality of the abdomen and pelvis. Tiny focus of gas in the urinary bladder is nonspecific, correlation with urinalysis recommended. Small sliding hiatal hernia. THIS IS AN ELECTRONICALLY VERIFIED FINAL REPORT 08/29/2024 12:20 PM - Electronically signed by bAram Wiley M.D. CH: Report ID: [id number] Reading Location: [id number] us Rocco Iglesias DO IMG CT PROCEDURES Final Result * eGFR (08/29/2024 10:26 AM WEAPONS DESIGNER) eGFR >90 >=60 mL/min/1. 73 m2 Comment: Interpretive Data Reference Interval Normal >/= 90 mL/min/1.73m2 Mildly decreased* 60 - 89 mL/min/1.73m2 Mildly to moderately decreased 45 - 59 mL/min/1.73m2 Moderately to severely decreased 30 - 44 mL/min/1.73m2 Severely decreased 15 - 29 mL/min/1.73m2 Kidney Failure < 15 mL/min/1.73m2 *Relative to young adult level Estimated glomerular [...] last reviewed 2021. Testing performed by: [facility], [address] [place] [address], [place]., [address] Blood 08/29/2024 10:2 6 AM WEAPONS DESIGNER 08/29/2024 10:34 AM WEAPONS DESIGNER Rocco Iglesias DO LAB BLOOD ORDERABLES Final Res ult [facility] [address] [facility] [place] [phone] * Differential, auto (08/29/2024 10:26 AM WEAPONS DESIGNER) Neutrophil abs 5.3 1.5 - 6.5 K/cumm Comment:Testing performed by : [address] [address] Imm gran abs 0.0 0.0 - 0.1 K/cumm [facility] Comment:Testing performed by : [address] [address] Lymphocyte abs 1.3 0.8 - 3.3 K/cumm [facility] Comment:Testing performed by : [address] [address] Monocyte abs 0.4 0.2 - 0.8 K/cumm [facility] Comment:Testing performed by : [address] [address] Eosinophil abs 0.1 0.0 - 0.5 K/cumm [facility] Comment:Testing performed by : [address] [address] Basophil abs 0.1 0.0 - 0.1 K/cumm [facility] Comment:Testing performed by : [address] [address] Neutrophil pct 73.5 % [facility] Comment: Interpretive Data Percent cell count reference ranges are not reported, since discordance with absolute values may lead to misinterpretation of CBC data. Current Interpretive Data was last revised on 2017. Testing performed by: [address] [address] Imm gran pct 0.4 % [facility] Comment: Interpretive Data Percent cell count reference ranges are not reported, since discordance with absolute values may lead to misinterpretation of CBC data. Current Interpretive Data was last revised on 2017. Testing performed by: [address] [address] Lymphocyte pct 17.3 % [facility] Comment: Interpretive Data Percent cell count reference ranges are not reported, since discordance with absolute values may lead to misinterpretation of CBC data. Current Interpretive Data was last revised on 2017. Testing performed by: [address] [address] Monocyte pct 6.1 % [facility]EE[facility] Comment: Interpretive Data Percent cell count reference ranges are not reported, since discordance with absolute values may lead to misinterpretation of CBC data. Current Interpretive Data was last revised on 2017. Testing performed by: [address] [address] Eosinophil pct 1.7 % [facility] Comment: Interpretive Data Percent cell count reference ranges are not reported, since discordance with absolute values may lead to misinterpretation of CBC data. Current Interpretive Data was last revised on 2017. Testing performed by: [address] [address] Basophil pct 1.0 % [facility] Comment: Interpretive Data Percent cell count reference ranges are not reported, since discordance with absolute values may lead to misinterpretation of CBC data. Current Interpretive Data was last revised on 2017. Testing performed by: [address] [address] Blood 08/29/2024 10:2 6 AM WEAPONS DESIGNER 08/29/2024 10:34 AM WEAPONS DESIGNER us Rocco Iglesias DO LAB BLOOD ORDERABLES Final Res ult [facility] [address] [facility] Department [place] [address] * (ABNORMAL) CBC with auto differential (08/29/2024 10:26 AM WEAPONS DESIGNER) WBC 7.2 3.8 - 9.9 K/cumm Comment:Testing performed by : [address] [address] Hgb 11.0(L) 11.9 - 15.5 g/dL [facility] Comment:Testing performed by : [address] [address] Hct 33.4(L) 35.6 - 45.5 % [facility] Comment:Testing performed by : [address] [place] [address] Plt 243 150 - 400 K/cumm [facility] Comment:Testing performed by : [address] [address] MPV 9.7 9.1 - 12.3 fL [facility]EE[facility] Comment:Testing performed by : [address] [address] RBC 3.83(L) 3.90 - 5.20 M/cumm [facility]EENA Comment:Testing performed by : [address] [address] MCV 87.2 81.3 - 96.4 fL [facility] Comment:Testing performed by : [address] [address] MCH 28.7 27.1 - 33.3 pg [facility]EENA Comment:Testing performed by : [address], [address] MCHC 32.9 32.3 - 35.7 g/dL [facility]EE[facility] Comment:Testing performed by : [address], [address] RDW CV 13.1 11.1 - 14.9 % [facility]EENA Comment:Testing performed by : [address], [address] RDW SD 41.1 35.7 - 48.1 fL [facility]EENA Comment:Testing performed by : [address], [address] NRBC abs 0.00 0.00 - 0.01 K/cumm [facility] Comment:Testing performed by : [address] [address] Blood 08/29/2024 10:2 6 AM WEAPONS DESIGNER 08/29/2024 10:34 AM WEAPONS DESIGNER us Rocco Iglesias DO LAB BLOOD ORDERABLES Final Res ult [facility] [address] [facility] Department [place] [address] * Comprehensive metabolic panel (08/29/2024 10:26 AM WEAPONS DESIGNER) Sodium 139 135 - 145 mmol/L Comment:Testing performed by : [address] [address] Potassium, pl 3.9 3.3 - 4.9 mmol/L [facility]EE[facility] Comment:Testing performed by : [address], [place]., [address] Chloride 103 97 - 110 mmol/L [facility] Comment:Testing performed by : [address], [place]., [address] CO2 24 22 - 32 mmol/L [facility] Comment:Testing performed by : [address], [place]., [address] Anion gap 12 2 - 15 mmol/L [facility] Comment:Testing performed by : [address], [place]., [address] BUN 14 6 - 25 mg/dL [facility] Comment:Testing performed by : [address], [place]., [address] Creatinine 0.65 0.60 - 1.10 mg/dL [facility] Comment:Testing performed by : [address], [place]., [address] Glucose 111 70 - 199 mg/dL [facility]EENA Comment: Interpretive Data Fasting glucose >/= 126 mg/dl is diagnostic for diabetes. Fasting is defined as no caloric intake [...] was last revised 2022. Testing performed by: [address] [address] Calcium 9.6 8.5 - 10.3 mg/dL [facility] Comment:Testing performed by : [address], [place]., [address] Bilirubin, total 0.4 0.1 - 1.2 mg/dL [facility] Comment:Testing performed by : [address] [address] Protein, pl 7.9 6.5 - 8.5 g/dL [facility] Comment:Testing performed by : [address] [address] Albumin 4.3 3.5 - 5.0 g/dL [facility]EE[facility] Comment:Testing performed by : [address] [address] Alk phos 66 40 - 130 Units/L [facility]EENA Comment:Testing performed by : [address] [address] ALT 10 7 - 45 Units/L [facility]EENA Comment:Testing performed by : [address] [address] AST 18 10 - 45 Units/L [facility]EENA Comment:Testing performed by : [address] [address] Blood 08/29/2024 10:2 6 AM WEAPONS DESIGNER 08/29/2024 10:34 AM WEAPONS DESIGNER Rocco Iglesias DO LAB BLOOD ORDERABLES Final Res ult Performing Organization Address City/[facility]/ZIP Co de Phone Number [facility] [address] [facility] Department [place] [address] * POC Influenza A/B, COVID-19 antigen (08/14/2024 3:42 PM WEAPONS DESIGNER) Influenza A Ag, POC Negative Negative [facility] [place] Influenza B Ag, POC Negative Negative [facility] [place] COVID-19 Ag POC Presumptive Negative Presumptive Negative, Invalid [facility] [place] Nasal 08/14/2024 3:42 PM WEAPONS DESIGNER Angle Fernandez NP POINT OF CARE TEST ORDERABLES F inal Result Performing Organization Address City/[facility]/ZIP Co de Phone Number [facility] [place] [address] [place] [address] * Albumin Creatinine Ratio, Urine (05/20/2024 11:19 AM WEAPONS DESIGNER) Pathologist [facility] Albumin Ur <12.0 mg/L Comment: Interpretive Data No reference range established. Current interpretive data was last revised 2018. Testing performed by: [address] [address] Creatinine Ur 67.8 mg/dL LEENA Comment: Interpretive Data No reference range established. Current interpretive data was last revised 2018. Testing performed by: [address] [address] Albumin Creatinine Ratio, Ur <18 1 - 29 mg/g [facility] Comment:Testing performed by : [address] [address] Urine 05/20/2024 11:1 9 AM WEAPONS DESIGNER 05/20/2024 1:54 PM WEAPONS DESIGNER [email or web address] LAB URINE ORDERABLES F inal Result [facility] [address] [facility] Department of Laboratories [place] [address] * Hepatitis C antibody Blood (05/20/2024 11:17 AM WEAPONS DESIGNER) Pathologist [facility] Hep C Ab Nonreactive Nonreactive Comment: Antibodies [...] in accordance with current CDC screening recommendations. Reactive: Positive for HCV antibodies. This may represent current or past HCV infection. Supplemental molecular testing will be automatically performed to determine current infection status in accordance with current CDC screening recommendations. Interpretive data was last revised on 2019. Blood 05/20/2024 11:1 7 AM WEAPONS DESIGNER 05/20/2024 4:41 PM WEAPONS DESIGNER [email or web address] LAB MICROBIOLOGY - GEN ERAL ORDERABLES Final Result Performing Organization Address City/[facility] Co de Phone Number LEENA [address] [facility] [place] [address] * (ABNORMAL) Hemoglobin A1c (05/20/2024 11:17 AM WEAPONS DESIGNER) Hgb A1C 6.3(H) 4.0 - 5.6 % Comment:Testing performed by : [address] [address] Estimated Average Glucose 134 mg/dL LEENA Comment: The ADA recommends reporting an estimated Average Glucose (eAG) with all Hemoglobin A1c results using the equation derived from a study of 507 normal and diabetic adults. Minority populations were underrepresented and children were not included. (Diabetes Care 31:7101-6351, 2008). The eAG is not equivalent to a fasting glucose. Testing performed by: [address] [address] Blood 05/20/2024 11:1 7 AM WEAPONS DESIGNER 05/20/2024 1:52 PM WEAPONS DESIGNER Reji Lott LAB BLOOD ORDERABLES F inal Result Performing Organization Address [facility] de Phone Number LEENA [address] [facility] [place] [address] * (ABNORMAL) Lipid panel (05/20/2024 11:17 AM WEAPONS DESIGNER) Cholesterol 258(H) 30 - 199 mg/dL Comment: Interpretive Data Ages < or = 19 years Acceptable: <170 mg/dL Borderline high: 170-199 mg/dL High: >or= 200 mg/dL Ages > or = 20 years Desirable: <200 mg/dL Borderline high: 200-239 mg/dL High: >or= 240 mg/dL Literature References: 1. Expert Panel on Integrated Guidelines for Cardiovascular Health and Risk Reduction in Children and Adolescents. Pediatrics 2011;128:S213 2. NCEP Expert Panel. Circulation 2004;110:227 Current Interpretive Data was last revised on 2018. Testing performed by: [address] [address] Triglycerides 120 <=149 mg/dL LEENA Comment: Interpretive Data Ages < or = 9 years Acceptable: <75 mg/dL Borderline high: 75-99 mg/dL High: >or= 100 mg/dL Ages 10 to 20 years Acceptable: <90 mg/dL Borderline high: 90-129 mg/dL High: >or= 130 mg/dL Ages > or = 20 years Desirable: <150 mg/dL Borderline high: 150-199 mg/dL High: 200-499 mg/dL Very high: >or= 499 mg/dL Literature References: 1. Expert Panel on Integrated Guidelines for Cardiovascular Health and Risk Reduction in Children and Adolescents. Pediatrics 2011;128:S213 2. NCEP Expert Panel. Circulation 2004;110:227 Current Interpretive Data was last revised on 2018. Testing performed by: [address] [address] HDL 55 >=40 mg/dL LEENA Comment: Interpretive Data Ages < or = 19 years Acceptable: >45 mg/dL Borderline low: 40-45 mg/dL Low: <40 mg/dL Ages > or = 20 years Desirable: >or= 60 mg/dL Low: <40 mg/dL Literature References: 1. Expert Panel on Integrated Guidelines for Cardiovascular Health and Risk Reduction in Children and Adolescents. Pediatrics 2011;128:S213 2. NCEP Expert Panel. Circulation 2004;110:227 Current Interpretive Data was last revised on 2018. Testing performed by: [address] [address] LDL, calculated 182(H) <=129 mg/dL LEENA Comment: Interpretive Data Ages < or = 19 years Acceptable: <110 mg/dL Borderline high: 110-129 mg/dL High: >or= 130 mg/dL Ages > or = 20 years Optimal: <100 mg/dL Near optimal: 100-129 mg/dL Borderline high: 130-159 mg/dL High: >160 mg/dL Calculated using the Rojas LDL-C estimating equation. This equation was implemented on 2024. Prior to this date LDL-C was estimated using the Friedewald equation. Literature References: 1. Expert Panel on Integrated Guidelines for Cardiovascular Health and Risk Reduction in Children and Adolescents. Pediatrics 2011;128:S213 2. NCEP Expert Panel. Circulation 2004;110:227 3. Bob M et al. RADHA Cardiol. 2020 November 06;5(5):540-548. doi: 10.1001/jamacardio.2020.0013 Current Interpretive Data was last revised on 2024. Testing performed by: [address] [address] Non-HDL Cholesterol 203 mg/dL LEENA Comment: Interpretive Data Ages < or = 19 years Acceptable: <120 mg/dL Borderline high: 120-144 mg/dL High: >145 mg/dL Ages > or = 20 years When triglycerides are >200 mg/dL, Non-HDL cholesterol is a secondary target of therapy with treatment goals that are 30 mg/dL greater than the LDL cholesterol target. Literature References: 1. Expert Panel on Integrated Guidelines for Cardiovascular Health and Risk Reduction in Children and Adolescents. Pediatrics 2011;128:S213 2. NCEP Expert Panel. Circulation 2004;110:227 Current Interpretive Data was last revised on 2018. Testing performed by: [address] [address] Chol/HDL ratio 5 LEENA Comment:Testing performed by : [address] [address] Blood 05/20/2024 11:1 7 AM WEAPONS DESIGNER 05/20/2024 1:45 PM WEAPONS DESIGNER us Reji Lott LAB BLOOD ORDERABLES F inal Result [facility] [address] [facility] Department [place] [address] * Pap and High Risk HPV, reflex to Genotyping (09/04/2022 8:36 AM WEAPONS DESIGNER) Thin prep (Pap test) 09/04/2022 8:36 AM WEAPONS DESIGNER 09/05/2022 8:36 AM WEAPONS DESIGNER Narrative PATHOLOGY [facility] - 09/07/2022 3:09 PM WEAPONS DESIGNER [facility] Department of Pathology [address] [place] [id number] Final Report with Addendum Note to Patients: [...] questions and explain the details. Patient Name: ELISE GARBER Address: [address] [place] [address] Gender: F : 1970 (Age: 52) Service: Location: N : [id number] [facility] #: [id number] Patient Type: [facility] SPECIMEN Taken: 09/04/2022 Received: 09/05/2022 Accessioned:: 09/06/2022 Reported: 09/07/2022 Physician(s): Monique Edouard M.D. [facility] Diagnosis: Source of Specimen: SCREENING THIN PREP IMAGED PAP w/ HPV: Specimen Adequacy: - Satisfactory for evaluation; endocervical/transformation zone component present General Categorization: - Negative for intraepithelial lesion or malignancy MARY Aguilar(ASCP) Report Electronically Reviewed and Signed Out By NAOMY AguilarASCDavid) 09/07/2022 15:09:57Addenda: HPV Test Interpretation NEGATIVE for types 16, 18, 31, 33, 35, 39, 45, 51, 52, 56, 58, 59, 66 and 68. Test performed utilizing Gen-Probe Aptima assay. MARY Mejía(ASCP)Report Electronically Reviewed and Signed Out By NAOMY MejíaASCP) 09/07/2022 11:22:22 Specimen(s) Received: A: SCREENING THIN PREP IMAGED PAP w/ HPV Clinical History: Menstrual History: Post-menopausal The Pap test is a screening test used to aid in the detection of cervical cancer and its precursors. It should not be the sole means by which malignant and premalignant lesions are diagnosed. Both false negative and false positive results may occur. It also has poor sensitivity for the detection of endometrial lesions and should not be used to evaluate suspected endometrial abnormalities. For these reasons it is most important to obtain Pap tests at regular intervals. The performance characteristics of some immunohistochemical stains, fluorescence in-situ hybridization tests and immunophenotyping by flow cytometry cited in this report (if any) were determined by the Surgical Pathology Department at [facility] as part of an ongoing quality assurance practice manager program and in compliance with federally mandated regulations drawn from the Clinical Laboratory Improvement Act of 1988 (CLIA '88). Some of these tests rely on the use of analyte specific reagents and are subject to specific labeling requirements by the US Food and Drug Administration. Such diagnostic tests may only be performed in a facility that is certified by the Department of Health and Human Services as a high complexity laboratory under CLIA '88. The FDA has determined that such clearance or approval is not necessary. This test is used for clinical purposes. It should not be regarded as investigational or for research. Nevertheless, federal rules concerning the medical use of analyte specific reagents require that the following disclaimer be attached to the report: This test was developed and its performance characteristics determined by the Surgical Pathology Department [facility]. It has not been cleared or approved by the U. S. Food and Drug Administration. Monique Edouard MD LAB CYTOLOGY ORDERABLES Final Result PATHOLOGY [facility] from Last 3 Months or Most Recently Relevant to Health [place] [address] [id number] [place] Care Teams Manager Data Warehouse Relationship Specialty Start Date End Date Reji Lott DO [address] [place] [id number] PCP - General Family Medicine 08/22/23 Reji Lott DO [address] [place] [phone] Family Practice 07/12/23
--- OUTSIDE RECORDS SUMMARY | 2024-10-06 11:59 | XMS_ITS | Referral Summary ---
Author Organization [address] Address [address] [place] [address] Care Team Providers Care Slide Developer Name Role Phone Reji Lott DO Primary Care Provider Reji Lott DO Unavailable [phone] Encounters Date Type Department Care Team Description 09/24/2024 12:50 PM CDT - 09/24/2024 11:59 PM CDT Hospital Encounter [facility] Breast Imaging [address] [place] [address] Screening mammogram, encounter for Discharge Disposition: Discharge to home or self care 08/29/2024 10:28 AM EXECUTIVE CHAIRMAN - 08/29/2024 1:32 PM EXECUTIVE CHAIRMAN Emergency [facility] Emergency Department [facility] [place] [address] Rocco Iglesias DO Bright red rectal bleeding (Primary Dx); Constipation, unspecified constipation type; History of hemorrhoids Discharge Disposition: Discharge to home or self care 08/29/2024 Nurse Triage [facility] Primary Care [address] [address] Reji Lott DO 08/14/2024 3:30 PM EXECUTIVE CHAIRMAN Office Visit [facility] Care at [address] [phone] Angle Fernandez NP Upper respiratory tract infection, unspecified type (Primary Dx); Fluid level behind tympanic membrane of left ear 08/14/2024 Telephone [facility] Primary Care [address] [facility] [address] [place] [address] Reji Lott DO Symptom Based Call 07/24/2024 11:15 AM EXECUTIVE CHAIRMAN Office Visit [facility] Pulmonary [place] [address] [facility] [address] [place] [address] Charlene Morales MD Mild persistent asthma without complication (Primary Dx); Seasonal allergic rhinitis, unspecified trigger; Primary hypertension from Last 3 Months Allergies Active Allergy [...] spray into each nostril daily 1 each 025 Active metoprolol XL (TOPROL-XL) 25 mg [...] urine and yeast culture 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 for abdominal pain, hematuria, dizziness Primary hypertension 08/22/2023 Overview (05/20/2024): Chronic, stable condition not requiring medication Continue diet modification Hyperthyroidism 08/22/2023 Overview (05/20/2024): Following with Endocrinology at [facility] Overall stable on methimazole Continue same medications Diabetes mellitus type II, controlled 08/22/2023 Overview (08/22/2023): Following with Endocrinology at [facility] Not requiring medication A1c 5.14 June 2022 Assessment & Plan (05/20/2024 11:50 AM EXECUTIVE CHAIRMAN): Labs today Dyslipidemia 08/22/2023 Overview (05/20/2024): Chronic condition not on medications LDL 146 in June 2022 Continue diet modification Assessment & Plan (05/20/2024 11:51 AM EXECUTIVE CHAIRMAN): Check labs Mild intermittent asthma without complication [...] 24 05/20/2024 Mixed incontinence 02/11/2018 8 Immunizations Immunization Administration Dates Next Due COVID-19 [...] on file Legal Sex Female 3:26 AM EXECUTIVE CHAIRMAN Gender Identity Female 03/25/2019 4:31 PM CDT Sexual Orientation Not on file 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 Not on file Not on file Not on file Last Filed Vital Signs Vital Sign Reading Time Taken Comments Blood Pressure 146/78 08/29/2024 1:20 PM EXECUTIVE CHAIRMAN Pulse 70 08/29/2024 1:20 PM EXECUTIVE CHAIRMAN Temperature 37.2 C (98.9 F) 08/29/2024 1:20 PM EXECUTIVE CHAIRMAN Respiratory Rate 18 08/29/2024 1:00 PM EXECUTIVE CHAIRMAN Oxygen Saturation 99% 08/29/2024 1:20 PM EXECUTIVE CHAIRMAN Inhaled Oxygen Concentration - - Weight 66.2 kg (145 lb 15.1 oz) 025 10:22 AM EXECUTIVE CHAIRMAN Height 157.5 cm (5' 2 ) 08/29/2024 10:2 2 AM EXECUTIVE CHAIRMAN Body Mass Index 26.69 08/29/2024 10:22 AM EXECUTIVE CHAIRMAN Plan of Treatment Not on file Procedures Procedure Name Priority Date/Time Associated Diagnosis Comments SCREENING MAMMOGRAM BILATERAL W RAGHAV Schedule Routine, Read Routine (OP Routine) 09/24/2024 1:09 PM CDT Screening mammogram, encounter for CT ABDOMEN PELVIS W CONTRAST ED 08/29/2024 12:02 PM EXECUTIVE CHAIRMAN EGFR STAT 08/29/2024 10:26 AM EXECUTIVE CHAIRMAN DIFFERENTIAL AUTO STAT 08/29/2024 10: 26 AM EXECUTIVE CHAIRMAN COMPREHENSIVE METABOLIC PANEL STAT 08/29/2024 10:26 AM EXECUTIVE CHAIRMAN CBC WITH AUTO DIFFERENTIAL STAT 08/29/2024 10:26 AM EXECUTIVE CHAIRMAN POC INFLUENZA A/B, COVID-19 ANTIGEN Routine 08/14/2024 3:42 PM EXECUTIVE CHAIRMAN Upper respiratory tract infection, unspecified type ALBUMIN CREATININE RATIO, URINE Routine 05/20/2024 11:19 AM EXECUTIVE CHAIRMAN Controlled type 2 diabetes mellitus without complication, without long-term current use of insulin (HCC) HEPATITIS C ANTIBODY Routine 05/20/2024 11:17 AM EXECUTIVE CHAIRMAN Need for hepatitis C screening test HEMOGLOBIN A1C Routine 05/20/2024 11:17 AM EXECUTIVE CHAIRMAN Controlled type 2 diabetes mellitus without complication, without long-term current use of insulin (HCC) LIPID PANEL Routine 05/20/2024 11:17 AM EXECUTIVE CHAIRMAN Controlled type 2 diabetes mellitus without complication, without long-term current use of insulin (HCC) Dyslipidemia PAP AND HIGH RISK HPV, REFLEX TO GENOTYPING Routine 09/04/2022 8:36 AM EXECUTIVE CHAIRMAN Well woman exam from Last 3 Months [...] age 40, based on guidelines of the [employer] (ACR Practice Parameter for the Performance of Screening and Diagnostic Mammography) and [employer]. For women [...] Abdomen Pelvis W Contrast (08/29/2024 12:02 PM EXECUTIVE CHAIRMAN) Anatomical Region Laterality Modality Body N/A Computed Tomogra phy 08/29/2024 12:1 5 PM EXECUTIVE CHAIRMAN Narrative 08/29/2024 12:20 PM EXECUTIVE CHAIRMAN EXAM DESCRIPTION: CT ABDOMEN PELVIS W CONTRAST [...] Electronically signed by Abram Wiley M.D. CH: Report ID: [id number] Reading Location: [id number] Procedure Note Abram Wiley Jr., MD - [...] Abram Wiley M.D. CH: LORENZO Report ID: [id number] Reading Location: [place] [address] us Rocco Iglesias DO IMG CT PROCEDURES Final Result * eGFR (08/29/2024 10:26 AM EXECUTIVE CHAIRMAN) eGFR >90 >=60 mL/min/1. 73 m2 Comment: [...] of Race in Diagnosing Kidney Disease, JASN 202). The CKD-EPI equation should not be used for patients with unstable renal function and has not been validated in children and those over 70. Current interpretive data was last reviewed 2021. Testing performed by: [facility], [address] [place] [address], [place]., [address] Blood 08/29/2024 10:2 6 AM EXECUTIVE CHAIRMAN 08/29/2024 10:34 AM EXECUTIVE CHAIRMAN us Rocco Iglesias DO LAB BLOOD ORDERABLES Final Res ult LEENA [address] [facility] [place] [address] * Differential, auto (08/29/2024 10:26 AM EXECUTIVE CHAIRMAN) Neutrophil abs 5.3 1.5 - 6.5 K/cumm Comment:Testing performed by : [address] [address] Imm gran abs 0.0 0.0 - 0.1 K/cumm LEENA Comment:Testing performed by : [address] [address] Lymphocyte abs 1.3 0.8 - 3.3 K/cumm LEENA Comment:Testing performed by : [address] [address] Monocyte abs 0.4 0.2 - 0.8 K/cumm LEENA Comment:Testing performed by : [address] [address] Eosinophil abs 0.1 0.0 - 0.5 K/cumm LEENA Comment:Testing performed by : [address] [address] Basophil abs 0.1 0.0 - 0.1 K/cumm LEENA Comment:Testing performed by : [address] [address] Neutrophil pct 73.5 % LEENA Comment: Interpretive Data Percent cell count reference ranges are not reported, since discordance with absolute values may lead to misinterpretation of CBC data. Current Interpretive Data was last revised on 2017. Testing performed by: [address] [address] Imm gran pct 0.4 % LEENA Comment: Interpretive Data Percent cell count reference ranges are not reported, since discordance with absolute values may lead to misinterpretation of CBC data. Current Interpretive Data was last revised on 2017. Testing performed by: [address] [address] Lymphocyte pct 17.3 % [facility] Comment: Interpretive Data Percent cell count reference ranges are not reported, since discordance with absolute values may lead to misinterpretation of CBC data. Current Interpretive Data was last revised on 2017. Testing performed by: [address] [address] Monocyte pct 6.1 % [facility] Comment: Interpretive Data Percent cell count reference ranges are not reported, since discordance with absolute values may lead to misinterpretation of CBC data. Current Interpretive Data was last revised on 2017. Testing performed by: [address] [address] Eosinophil pct 1.7 % [facility] Comment: Interpretive Data Percent cell count reference ranges are not reported, since discordance with absolute values may lead to misinterpretation of CBC data. Current Interpretive Data was last revised on 2017. Testing performed by: [address] [address] Basophil pct 1.0 % [facility] Comment: Interpretive Data Percent cell count reference ranges are not reported, since discordance with absolute values may lead to misinterpretation of CBC data. Current Interpretive Data was last revised on 2017. Testing performed by: [address] [address] Blood 08/29/2024 10:2 6 AM EXECUTIVE CHAIRMAN 08/29/2024 10:34 AM EXECUTIVE CHAIRMAN us Rocco Iglesias DO LAB BLOOD ORDERABLES Final Res ult LEENA [address] [facility] Department [place] [address] * (ABNORMAL) CBC with auto differential (08/29/2024 10:26 AM EXECUTIVE CHAIRMAN) Pathologist [facility] WBC 7.2 3.8 - 9.9 K/cumm Comment:Testing performed by : [address] [address] Hgb 11.0(L) 11.9 - 15.5 g/dL LEENA Comment:Testing performed by : [address], [address] Hct 33.4(L) 35.6 - 45.5 % LEENA Comment:Testing performed by : [address] [address] Plt 243 150 - 400 K/cumm LEENA Comment:Testing performed by : [address] [address] MPV 9.7 9.1 - 12.3 fL LEENA Comment:Testing performed by : [address], [address] RBC 3.83(L) 3.90 - 5.20 M/cumm LEENA Comment:Testing performed by : [address] [address] MCV 87.2 81.3 - 96.4 fL LEENA Comment:Testing performed by : [address] [address] MCH 28.7 27.1 - 33.3 pg LEENA Comment:Testing performed by : [address], [address] MCHC 32.9 32.3 - 35.7 g/dL LEENA Comment:Testing performed by : [address], [address] RDW CV 13.1 11.1 - 14.9 % LEENA Comment:Testing performed by : [address], [address] RDW SD 41.1 35.7 - 48.1 fL LEENA Comment:Testing performed by : [address], [address] NRBC abs 0.00 0.00 - 0.01 K/cumm LEENA Comment:Testing performed by : [address] [address] Blood 08/29/2024 10:2 6 AM EXECUTIVE CHAIRMAN 08/29/2024 10:34 AM EXECUTIVE CHAIRMAN us Rocco Iglesias DO LAB BLOOD ORDERABLES Final Res ult LEENA [address] [facility] Department [place] [address] * Comprehensive metabolic panel (08/29/2024 10:26 AM EXECUTIVE CHAIRMAN) Sodium 139 135 - 145 mmol/L Comment:Testing performed by : [address] [address] Potassium, pl 3.9 3.3 - 4.9 mmol/L LEENA Comment:Testing performed by : [address] [address] Chloride 103 97 - 110 mmol/L LEENA Comment:Testing performed by : [address] [address] CO2 24 22 - 32 mmol/L LEENA Comment:Testing performed by : [address] [address] Anion gap 12 2 - 15 mmol/L LEENA Comment:Testing performed by : [address] [address] BUN 14 6 - 25 mg/dL LEENA Comment:Testing performed by : [address] [address] Creatinine 0.65 0.60 - 1.10 mg/dL LEENA Comment:Testing performed by : [address] [address] Glucose 111 70 - 199 mg/dL LEENA [...] was last revised 2022. Testing performed by: [address] [address] Calcium 9.6 8.5 - 10.3 mg/dL LEENA Comment:Testing performed by : [address] [address] Bilirubin, total 0.4 0.1 - 1.2 mg/dL LEENA Comment:Testing performed by : [address] [address] Protein, pl 7.9 6.5 - 8.5 g/dL LEENA Comment:Testing performed by : [address], [place]., [address] Albumin 4.3 3.5 - 5.0 g/dL LEENA Comment:Testing performed by : [address] [address] Alk phos 66 40 - 130 Units/L LEENA Comment:Testing performed by : [address] [address] ALT 10 7 - 45 Units/L LEENA Comment:Testing performed by : [address] [address] AST 18 10 - 45 Units/L [facility] Comment:Testing performed by : [address] [address] Blood 08/29/2024 10:2 6 AM EXECUTIVE CHAIRMAN 08/29/2024 10:34 AM EXECUTIVE CHAIRMAN Rocco Iglesias DO LAB BLOOD ORDERABLES Final Res ult LEENA [address] [facility] Department of Laboratories [place], [place] [id number] * POC Influenza A/B, COVID-19 antigen (08/14/2024 3:42 PM EXECUTIVE CHAIRMAN) Influenza A Ag, POC Negative Negative [facility] Influenza B Ag, POC Negative Negative [facility] COVID-19 Ag POC Presumptive Negative Presumptive Negative, Invalid [facility] Nasal 08/14/2024 3:42 PM EXECUTIVE CHAIRMAN Angle Fernandez [facility] [employer] POINT OF CARE TEST ORDERABLES F inal Result [facility] [address] [place] [address] * Albumin Creatinine Ratio, Urine (05/20/2024 11:19 AM EXECUTIVE CHAIRMAN) Albumin Ur <12.0 mg/L Comment: Interpretive Data No reference range established. Current interpretive data was last revised 2018. Testing performed by: [address] [address] Creatinine Ur 67.8 mg/dL LEENA GUILLEN Comment: Interpretive Data No reference range established. Current interpretive data was last revised 2018. Testing performed by: [address] [address] Albumin Creatinine Ratio, Ur <18 1 - 29 mg/g LEENA GUILLEN Comment:Testing performed by : [address] [address] Urine 05/20/2024 11:1 9 AM EXECUTIVE CHAIRMAN 05/20/2024 1:54 PM EXECUTIVE CHAIRMAN Reji Lott DO LAB URINE ORDERABLES F inal Result LEENA [address] [facility] Department [place] [address] * Hepatitis C antibody Blood (05/20/2024 11:17 AM EXECUTIVE CHAIRMAN) Hep C Ab Nonreactive Nonreactive Comment: Antibodies [...] on 2019. Blood 05/20/2024 11:1 7 AM EXECUTIVE CHAIRMAN 05/20/2024 4:41 PM EXECUTIVE CHAIRMAN [facility] LAB MICROBIOLOGY - GEN ERAL ORDERABLES Final Result Performing Organization Address [facility] Phone Number LEENA [address] [place] [address] * (ABNORMAL) Hemoglobin A1c (05/20/2024 11:17 AM EXECUTIVE CHAIRMAN) Hgb A1C 6.3(H) 4.0 - 5.6 % Comment:Testing performed by : [address] [address] Estimated Average Glucose 134 mg/dL LEENA Comment: The ADA recommends reporting an estimated Average Glucose (eAG) with all Hemoglobin A1c results using the equation derived from a study of 507 normal and diabetic adults. Minority populations were underrepresented and children were not included. (Diabetes Care 31:7253-4674, 2008). The eAG is not equivalent to a fasting glucose. Testing performed by: [address] [address] Blood 05/20/2024 11:1 7 AM EXECUTIVE CHAIRMAN 05/20/2024 1:52 PM EXECUTIVE CHAIRMAN [facility] BLOOD ORDERABLES F inal Result Performing Organization Address [facility] de Phone Number LEENA [address] [place] [address] * (ABNORMAL) Lipid panel (05/20/2024 11:17 AM EXECUTIVE CHAIRMAN) Cholesterol 258(H) 30 - 199 mg/dL Comment: [...] last revised on 2018. Testing performed by: [address] [address] Triglycerides 120 <=149 mg/dL LEENA Comment: Interpretive [...] last revised on 2018. Testing performed by: [address] [address] HDL 55 >=40 mg/dL LEENA Comment: Interpretive [...] last revised on 2018. Testing performed by: [address] [address] LDL, calculated 182(H) <=129 mg/dL LEENA Comment: [...] 3. Bob Church et al. RADHA Cardiol. 2019November 06;5(5):540-548. doi: 10.1001/jamacardio.2020.0013 Current Interpretive Data was last revised on 2024. Testing performed by: [address] [address] Non-HDL Cholesterol 203 mg/dL LEENA GUILLEN Comment: Interpretive Data Ages [...] last revised on 2018. Testing performed by: [address] [address] Chol/HDL ratio 5 LEENA GUILLEN Comment:Testing performed by : [address] [address] Blood 05/20/2024 11:1 7 AM EXECUTIVE CHAIRMAN 05/20/2024 1:45 PM EXECUTIVE CHAIRMAN us Reji Lott DO LAB BLOOD ORDERABLES F inal Result LEENA GUILLEN [address] [facility] Department [place] [address] * Pap and High Risk HPV, reflex to Genotyping (09/04/2022 8:36 AM EXECUTIVE CHAIRMAN) Thin prep (Pap test) 09/04/2022 8:36 AM EXECUTIVE CHAIRMAN 09/05/2022 8:36 AM EXECUTIVE CHAIRMAN Narrative PATHOLOGY [facility] - 09/07/2022 3:09 PM EXECUTIVE CHAIRMAN [facility] Department of Pathology [address] [place] [address] Final Report with Addendum Note to Patients: [...] the details. Patient Name: ELISE GARBER Address: [address] [place] [address] Gender: F : 1970 (Age: 52) Service: Location: Hospital #: [id number] Patient Type: [facility] SPECIMEN Taken: 09/04/2022 Received: 09/05/2022 Accessioned:: 09/06/2022 Reported: 09/07/2022 Physician(s): Monique Edouard M.D. [facility] Diagnosis: Source of Specimen: SCREENING THIN PREP IMAGED PAP w/ HPV: Specimen Adequacy: - Satisfactory for evaluation; endocervical/transformation zone component present General Categorization: - Negative for intraepithelial lesion or malignancy MARY Aguilar(ASCP) Report Electronically Reviewed and Signed Out By NAOMY AguilarASC) 09/07/2022 15:09:57Addenda: HPV Test Interpretation NEGATIVE for [...] determined by the Surgical Pathology Department at [facility] as part of an ongoing manufacturing quality manager program and in compliance with federally [...] characteristics determined by the Surgical Pathology Department [facility]. It has not been cleared or approved by the U. S. Food and Drug Administration. Monique Edouard MD LAB CYTOLOGY ORDERABLES Final Result [facility] from Last 3 Months or Most Recently Relevant to Health Maintenance [place] Care Teams Slide Developer Relationship Specialty Start Date End Date Reji Lott DO [address] [place] [id number] PCP - General Family Medicine 08/22/23 Reji Lott DO [facility] [address] Family Practice 07/12/23
--- OUTSIDE RECORDS SUMMARY | 2024-10-06 12:00 | XMS_ITS | Clinical Summary ---
Author Organization [facility] Address [address] [place] [id number] Care Team Providers Care Hand Dry Cleaner Name Role Phone Mary Lott DO Primary Care Provider [phone] Dayton Farris MD Unavailable [phone] Ashanti Palm MD Unavailable Allergies Active [...] diabetes mellitus wit h other specified complication ([facility]) 05/23/2021 LUNA (dyspnea on exertion) 07/29/2019 Precordial pain 07/29/2019 Hypertension 04/09/2018 Pelvic organ prolapse quantification stage 4 cys tocele 03/08/2016 External hemorrhoids 09/28/2014 Asthma ([facility]) Hyperthyroidism Resolved Problems Problem Noted Date Diagnosed Date Resolved Date Cervical cancer screening 04/17/2018 Yeast vaginitis 10/19/2014 02/14/2019 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 09/28/2014 0 03/19/2020 Encounter for preventive [...] Comments Blood Pressure 126/76 06/11/2023 7:56 AM FLOAT NURSE Pulse 51 06/11/2023 7:56 AM FLOAT NURSE Temperature 36.7 C (98 F) 10/04/2021 6:09 AM CDT Respiratory Rate 18 10/04/2021 6:09 AM CDT Oxygen Saturation 98% 11/14/2022 9:34 AM CDT Inhaled Oxygen Concentration - - Weight 68 kg (150 lb) 06/11/2023 7:56 AM FLOAT NURSE Height 156.2 cm (5' 1.5 ) 06/11/2023 7:56 AM FLOAT NURSE Body Mass Index 27.88 06/11/2023 7:56 AM FLOAT NURSE Plan of Treatment Health Maintenance Due Date [...] 1987 Zoster Vaccines (1 of 2) 2018 Cervical Cancer Screening Pap with HPV Testing (Age 30 to 64) Every 5 Years 04/17/2023 04/17/2018 Lipid Panel 06/08/2023 06/08/2022, 0 07/2021, 05/23/2021, Additional history exists COVID-19 Vaccine ( season) 2024 04/17/2023, 04/01/2022, 06/04/2021, Additional history exists Annual Physical 06/11/2024 06/11/2023, 0 07/2021, 05/23/2021, Additional history exists Hemoglobin A1C 11/17/2024 05/20/2024, 0 07/2021, 05/23/2021 Cervical Cancer Screening Pap Smear (Age 30 to 64) Every 3 Years 09/04/2025 09/04/2022, 04/17/2018, 04/17/2018, Additional history exists Cervical Cancer Screening with HPV 09/04/2025 Mammogram Screening 09/19/2025 09/20/2023, 06/29/2022, 06/03/2021, Additional history exists Meningococcal B Vaccine Aged Out No l [...] STANTON YUMI DIGI Routine 06/29/2022 12:12 PM FLOAT NURSE Encounter for screening mammogram for malignant neoplasm of breast LIPID PANEL Routine 06/08/2022 9:29 AM FLOAT NURSE Type 2 diabetes mellitus with other specified complication, without long-term current use of insulin HEMOGLOBIN, GLYCOSYLATED Routine 06/08/2022 9:29 AM FLOAT NURSE Type 2 diabetes mellitus with other specified complication, without long-term current use of insulin THINPREP IMAGING SYSTEM PAP Routine 04/17/2018 10:58 AM CDT from Last 3 Months or Most Recently Relevant to Health Maintenance Results * MG SCREENING W STANTON YUMI DIGI (06/29/2022 12:12 PM FLOAT NURSE) Anatomical Region Laterality Modality Breast Bilateral Mammography 06/29/2022 1:18 PM FLOAT NURSE Narrative 06/29/2022 1:20 PM FLOAT NURSE Examination: Digital screening mammogram with CAD. Clinical history: Asymptomatic patient presents for routine screening. History of left breast cyst. Comparison: 06/03/2021, 05/18/2021, 04/07/2019, 04/10/2018, 10/10/2014. Technique: Bilateral digital mammograms. The exam was interpreted with the use of a computer-aided detection (CAD) system. Additional 3-D tomosynthesis images were acquired. Tissue density: The breast tissue is heterogeneously dense. Findings: The breast tissue is heterogeneously dense. The dense tissue may obscure some lesions mammographically. 6 mm sharply circumscribed mass at the 6:00 position on the left near the nipple axis reflects the previously documented cyst. No suspicious mass, microcalcification or area of architectural distortion can be identified. From a mammographic standpoint, routine followup in one year would seem adequate. IMPRESSION: No suspicious change since the previous exams. Recommendation: 1: Routine Screening Bilateral in 1 Year Assessment: ACR BI-RADS 2 - BENIGN FINDING(S) Ordered By: MARY LOTT Interpreted By: Erasmo Hill MD, 06/29/2022 1:18 PM us Mary Lott DO MAMMO Final Resul t * HEMOGLOBIN, GLYCOSYLATED (06/08/2022 9:29 AM FLOAT NURSE) HGB A1C 5.7 4.2 - 6.5 % [facility] 06/08/2022 9:29 AM FLOAT NURSE [facility] [employer] LABORATORY Final Resul t Performing Organization Address City/[facility]/ZIP Co de Phone Number CARLA COON [address] [phone], * (ABNORMAL) LIPID PANEL (06/08/2022 9:29 AM FLOAT NURSE) CHOLESTEROL 213(H) 0 - 199 MG/DL [facility] TRIGLYCERIDES 100 0.00 - 150.00 MG/DL [facility] Comment: NCEP REFERENCE VALUES FOR TRIGLYCERIDES: NORMAL: <150 MG/DL BORDERLINE HIGH: 150 - 199 MG/DL HIGH: 200 - 499 MG/DL VERY HIGH: >/= 500 MG/DL HDL 47 >40 MG/DL [facility] LDL (CALCULATED) 146(H) 0 - 99 MG/DL [facility] Comment: CUTOFF VALUES RECOMMENDED BY THE NATIONAL CHOLESTEROL EDUCATION PROGRAM: DESIRABLE: CHOLESTEROL <200 MG/DL LDL <100 MG/DL BORDERLINE: CHOLESTEROL 200-239 MG/DL LDL 101-159 MG/DL HIGHER RISK: CHOLESTEROL >240 MG/DL LDL >160 MG/DL, HDL <40 MG/DL NON HDL CHOLESTEROL 166 NO REFERENCE RANGE MG/DL [facility] Comment: A REASONABLE GOAL FOR NON-HDL CHOLESTEROL IS ONE THAT IS 30 MG/DL HIGHER THAN THE LDL CHOLESTEROL GOAL. CHOL/HDL RATIO 4.5 0.0 - 5.0 . [facility] Comment:IS PATIENT FASTING?- >YES 06/08/2022 9:29 AM FLOAT NURSE 06/09/2022 6:39 AM FLOAT NURSE [facility] LABORATORY Final Resul t Performing Organization Address City/[facility]/ZIP Co de Phone Number [facility] [address] [place] [address], * THINPREP IMAGING SYSTEM PAP (04/17/2018 10:58 AM CDT) Report Received CYTOPATHOLOGY - GYNECOLOGIC REPORTDiagnosis:TE ST NAME: THINPREP PAP WITH IMAGERSTATEMENT OF ADEQUACY:UNSATISFA CTORY FOR EVALUATION. SPECIMEN PROCESSED AND EXAMINED, BUTUNSATISFACTORY FOR EVALUATION OF EPITHELIAL ABNORMALITY BECAUSE OF SCANTCELLULARITY. SLIDE SCREENED MANUALLY DUE TO REJECTION BY THE THINPREP IMAGING SYSTEM. MARY NOLASCO (ASCP) ckf/04/25/2018 Report ElectronicallySign ed Specimen:THINPREP PAP WITH IMAGERClinical Diagnosis and HistoryDate of Last Menstrual Period: 04/03/18pecimen Source:Cervical/En docervical PAP SMEARS ARE SCREENING TESTS SUBJECT TO BOTH FALSE NEGATIVE ANDFALSE POSITIVE RESULTS EVIDENCED BY DATA PUBLISHED IN THE MEDICALLITERATURE. YOUR PATIENT'S RESULT SHOULD BE INTERPRETED IN THIS CONTEXT,TOGETHER WITH THE PATIENT'S HISTORY AND CLINICAL FINDINGS. [facility] TO EPIC CONVERSION 04/17/2018 10:5 8 AM CDT 04/17/2018 10:58 AM CDT Narrative [facility] TO EPIC CONVERSION - 04/25/2018 8:58 AM CDT Order Comment: Report: [id number] 1:42PM by Mary Lott: unsatisfactory pap - due to prolapse - she needs to get back in to see [employer] Result Communication: Call patient with results us Mary Lott DO PATHOLOGY/CYTOLOGY ORDERABL ES Final Result [facility] TO EPIC CONVERSION from Last 3 Months or Most Recently Relevant to Health Maintenance Insurance [facility] [place] [phone] [facility] Care Teams Hand Dry Cleaner Relationship Specialty Start Date End Date Mary Lott DO PCP - General 04/27/16 Dayton Farris MD [facility]. [facility] [address] [place] [phone] [employer] CARDIOVASCULAR DISEASE 07/16/19 Ashanti Palm MD [address] [place] [id number] ENDOCRINOLOGY 07/24/22
--- OUTSIDE RECORDS SUMMARY | 2024-10-06 12:00 | XMS_ITS | Data Portability ---
Author Organization [place] [facility], Main Office Address [address] [place] [address] Care Team Providers Care Compensation Supervisor Name Role Phone ZENAIDA MARY Primary Care Provider Assessment No assessment recorded. Plan of Treatment Reminders Order Date Submit Date Provider Last Modified By Organization Details Last Modified Time Details Appointments None recorded. Lab lipid panel, serum 2022 023 [email or web address] Not available 11:59:53 TSH + free T4, serum 2022 023 [email or web address] Not available 11:59:53 T3, free, serum or plasma 2022 023 [email or web address] Not available 11:59:53 thyroid peroxidase (tpo) Ab, serum 2022 023 [email or web address] Not available 11:59:53 tsi (thyroid-st imulating immunoglobu susannah), serum 2022 023 [email or web address] Not available 11:59:53 CMP, serum or plasma 2022 023 Not available 11:59:53 Referral None recorded. Procedures None recorded. Surgeries None recorded. Imaging None recorded. Medication Orders omega-3 acid ethyl esters 1 gram capsule 2022 023 [facility]54, [address], [place], [id number], 11:59:39 metoprolol succinate ER 25 mg tablet,exte nded release 24 hr 2022 023 [facility] #08606, [address], [place], [id number], 3 11:59:06 methimazole 5 mg tablet 2022 023 [facility] #68087, [address], [place], [id number], 3 11:59:05 Arnuity Ellipta 200 mcg/actuati on powder for inhalation 2022 023 [facility] #35306, [address], [id number], 3 10:46:09 Flovent Diskus 250 mcg/actuati on powder for inhalation 2022 023 [facility] #16232, [address], [place], [id number], 3 11:40:17 Patient TargetsNo targets recorded. Patient InstructionsNo instructions recorded. Reason for Referral None Reported. Results Created Date Observation Date Name Description Value Unit Range Abnormal Flag Note LastModifiedBy Organization Detail LastModifiedTime 12/30/1912/29/2022 HEMOG LOBIN A1C HA1C 6.0 % 4.0-6. 0 Diabe maya Lupee joe Crite pablito: <5.7% Consi stent with absen ce of diabe maya 5.7-6 .4% Consi stent with incre ased risk for diabe maya (pred iabet es) >OR=6 .5% Consi stent with diabe maya REFER ENCE: Diabe maya Care 2016, 39(Kenney ppl.1 ):s13 -s22 Not Available [facility] ([facility]) [address] [facility], [place], [address], 12/29/2022 14:54:35 12/30/1912/29/2022 COMPR EHENS ANKUR METAB OLIC PANEL sodium 141 mmol/ L 137-14 5 Not Available [facility] (Lab) [address] [place], [address], 12/29/2022 18:30:50 12/30/1912/29/2022 COMPR EHENS ANKUR METAB OLIC PANEL potassium 3.8 mmol/ L 3.5-5. 1 Not Available [facility] (Lab) [address] [place], [address], 12/29/2022 18:30:50 12/30/1912/29/2022 COMPR EHENS ANKUR METAB OLIC PANEL chloride 106 mmol/ L 98-107 Not Available [facility] (Lab) [address] [place], [address], 12/29/2022 18:30:50 12/30/1912/29/2022 COMPR EHENS ANKUR METAB OLIC PANEL carbon dioxide 24 mmol/ L 22-30 Not Available [facility] (Lab) [address] [place], [address], 12/29/2022 18:30:50 12/30/19 23 12/29/2022 COMPR EHENS ANKUR METAB OLIC PANEL anion gap 14.8 mmol/ L 14-22 Not Available [facility] (Lab) [address] [place], [address], 12/29/2022 18:30:50 12/30/1912/29/2022 COMPR EHENS ANKUR METAB OLIC PANEL glucose 99 mg/dL 70-99 Not Available [facility] (Lab) [address] [place], [address], 12/29/2022 18:30:50 12/30/1912/29/2022 COMPR EHENS ANKUR METAB OLIC PANEL BUN 12 mg/dL 8-19 Not Available [facility] (Lab) [address] [place], [address], 12/29/2022 18:30:50 12/30/19 23 12/29/2022 COMPR EHENS ANKUR METAB OLIC PANEL creatinine 0.62 mg/dL 0.66-1 .25 low Not Available [facility] (Lab) [address] [place], [address], 12/29/2022 18:30:50 12/30/19 23 12/29/2022 COMPR EHENS ANKUR METAB OLIC PANEL GFR >60 Refer ence Range : [place] [facility] GFR Healt hy Adult : >60 [...] or ethni c subgr oups, such as Hismi nics. Outsi de the valid ated wali [...] s/kdo qi/gf r_cal culat or Not Available [facility] (Lab) [address] [place], [address], 12/29/2022 18:30:50 12/30/1912/29/2022 COMPR EHENS ANKUR METAB OLIC PANEL alkaline phosphatase 55 U/L 38-126 Not Available [facility] (Lab) [address] [place], [address], 12/29/2022 18:30:50 12/30/1912/29/2022 COMPR EHENS ANKUR METAB OLIC PANEL alanine aminotransfe rase 17 U/L 0-35 Not Available [facility] (Lab) [address] [place], [address], 12/29/2022 18:30:50 12/30/1912/29/2022 COMPR EHENS ANKUR METAB OLIC PANEL aspartate aminotransfe rase 25 U/L 15-37 Not Available [facility] (Lab) [address] [place], [address], 12/29/2022 18:30:50 12/30/1912/29/2022 COMPR EHENS ANKUR METAB OLIC PANEL bilirubin, total 0.60 mg/dL 0.20-1 .30 Not Available [facility] (Lab) [address] [place], [address], 12/29/2022 18:30:50 12/30/1912/29/2022 COMPR EHENS ANKUR METAB OLIC PANEL calcium 8.9 mg/dL 8.4-10 .2 Not Available [facility] (Lab) [address] [place], [address], 12/29/2022 18:30:50 12/30/1912/29/2022 COMPR EHENS ANKUR METAB OLIC PANEL total protein 7.5 g/dL 6.3-8. 2 Not Available [facility] (Lab) [address] [place], [address], 12/29/2022 18:30:50 12/30/19 23 12/29/2022 COMPR EHENS ANKUR METAB OLIC PANEL albumin 3.9 g/dL 3.4-5. 0 Not Available [facility] (Lab) [address] [place], [address], 12/29/2022 18:30:50 12/30/19 23 12/29/2022 COMPR EHENS ANKUR METAB OLIC PANEL globulin 3.6 g/dL 2.6-4. 2 Not Available [facility] (Lab) [address] [place], [address], 12/29/2022 18:30:50 12/30/19 23 12/29/2022 COMPR EHENS ANKUR METAB OLIC PANEL A/G ratio 1.1 ratio 1.0-2. 0 Not Available [facility] (Lab) [address] [place], [address], 12/29/2022 18:30:50 12/30/1912/29/2022 LIPID PANEL cholesterol 197 mg/dL 140-19 9 NIH EMILY NSUS RECOM MENDA TION FOR RENETTA STERO L: ADULT CHILD LOW RISK: <200 <170 BORDE RLINE : <200- 239 ----- HIGH RISK: >240 >200 Not Available [facility] (Lab) [address] [place], [address], 12/29/2022 18:30:55 12/30/1912/29/2022 LIPID PANEL triglyceride s 120 mg/dL 0-150 NIH EMILY NSUS REPOR T RECOM MENDA TION FOR TRIGL YCERI FELICIANO: ADULT CHILD LOW RISK: <150 ----- BODER LINE: 150-1 99 ----- HIGH RISK: >200 ----- Not Available [facility] (Lab) [address] [place], [address], 12/29/2022 18:30:55 12/30/1912/29/2022 LIPID PANEL HDL cholesterol 45 mg/dL 40- Not Available [facility] (Lab) [address] [place], [address], 12/29/2022 18:30:55 12/30/1912/2912/29/2022 LIPID PANEL LDL cholesterol, [...] WILL NOT BE REPOR MARCO. Not Available [facility] (Lab) [address] [place], [address], 12/29/2022 18:30:55 12/30/1912/29/2022 T3 FREE free T3 3.3 pg/mL 2.77-5 .27 Not Available [facility] (Lab) [address] [place], [address], 12/29/2022 18:56:21 12/30/19 23 12/29/2022 T4 FREE free T4 1.48 NG/dL 0.78-2 .19 Not Available [facility] (Lab) [address] [place], [address], 12/29/2022 18:56:24 12/30/19 23 12/29/2022 TSH thyroid-stim ulating hormone 1.350 uIU/m L 0.465- 4.680 Not Available [facility] (Lab) [address] [place], [address], 12/29/2022 19:09:08 12/30/19 23 12/31/2022 THYRO ID PEROX IDASE (TPO) AB thyroid peroxidase (tpo) Ab 159 IU/mL 0-34 high Perfo rmed at: [facility] [address] [id number] Lab Direc tor: Willie juares PhD, Phone : [phone] Not Available [facility] (Lab) [address] [place], [address], 12/31/2022 07:08:24 12/30/19 23 01/01/2023 INSUL IN insulin 7.6 uIU/m L 2.6-24 .9 Perfo rmed at: [facility] Lacie hand [address] [place] [address] Lab Direc tor: Willie juares PhD, Phone : [phone] Not Available [facility] (Lab) [address] [place], [address], 01/01/2023 13:08:39 12/30/19 23 01/02/2023 THYRO ID STIM IMMUN OGLOB ULIN thyroid stim immunoglobul in 1.17 IU/L 0.00-0 .55 high Perfo rmed at: [facility] Jabari [address] [address] Lab Direc tor: Quita dunn MD, Phone : [phone] Not Available [facility] (Lab) [address] [place], [address], 01/02/2023 15:10:21 Result Notes None recorded. Problems Name Problem SNOMED Code Status Onset Date Resolution Date Notes Provider Name and Address Organization Details Recorded Time Asthma 527247497 Active 2021 Not Available [facility] 3 12:21:00 Gastroesophag eal reflux disease without esophagitis 868947549 Active 2022 Not Available [facility] 3 12:21:00 Mixed hyperlipidemi a 956927542 Active 2021 Not Available [facility] 3 12:21:00 Hyperthyroidi sm 01183796 Active 2018 Not Available [facility] 3 12:21:00 Hypertensive disorder 03816659 Active 2018 Not Available [facility] 3 12:21:01 Cough 45061439 Active 2021 Not Available [facility] 3 12:21:01 Wheezing 39506301 Active 2021 Not Available [facility] 3 12:21:01 Dyspnea on exertion 26553999 Active 2021 Not Available [facility] 3 12:21:01 Prediabetes 188393911 Active 2021 Not Available [facility] 3 12:21:01 Congestion of nasal sinus 74562388 Active 2021 Not Available [facility] 3 12:21:01 Autoimmune thyroiditis 32726282 Active 2022 Not Available [facility] 3 12:21:01 Essential hypertension 67214973 Active 2022 Not Available [facility] [...] % 97 % 63 /min 97.2 [degF] 03962.1 2 g 115 mm[Hg] 65 mm[Hg] Not Available [facility] 3 02:28:59 Date Recorded Body height Body mass index (BMI) Body weight Body temperature Heart rate Oxygen saturation Oxygen saturation in Arterial blood by Pulse oximetry Systolic blood pressure Diastolic blood pressure Provider Name and Address Organization Details Last Updated DateTime 3 157.48 cm 27.4 kg/m2 60684.8 6 g 97.2 [degF] 65 /min 97 % 97 % 114 mm[Hg] 82 mm[Hg] Tracie Mc [facility] 3 11:12:20 Date Recorded Body height Body mass index (BMI) Body weight Heart rate Body temperature Oxygen saturation Oxygen saturation in Arterial blood by Pulse oximetry Systolic blood pressure Diastolic blood pressure Provider Name and Address Organization Details Last Updated DateTime 3 157.48 cm 27.4 kg/m2 06568.8 6 g 60 /min 96.3 [degF] 98 % 98 % 110 mm[Hg] 62 mm[Hg] Carla Pedraza, [employer] [address] [facility], [place], [address], REYES Osborne [facility] 3 10:44:59 Date Recorded Body height Body mass index (BMI) Body weight Body temperature Heart rate Systolic blood pressure Diastolic blood pressure Provider Name and Address Organization Details Last Updated DateTime 3 157.48 cm 27.3 kg/m2 04688.9 8 g 97.4 [degF] 65 /min 102 mm[Hg] 62 mm[Hg] JALEN Dean [facility] [employer] [facility] 3 11:43:50 Date Recorded Body height Body weight Body temperature Heart rate Oxygen saturation Oxygen saturation in Arterial blood by Pulse oximetry Systolic blood pressure Diastolic blood pressure Provider Name and Address Organization Details Last Updated DateTime 3 157.48 cm 24455.8 6 g 98.1 [degF] 66 /min 98 % 98 % 110 mm[Hg] 68 mm[Hg] Suzanna Trevizo RN [facility] [employer] [facility] 3 11:40:40 Social History Question Answer Notes LastModified by Organizat ion Details LastModified Time Tobacco Smoking Status Never Smoker Not Available [facility] 09/06/2022 02:26:02 Do You Have An Advance Directive? No [id number] Information not available 09/06/2022 What Is Your Level Of Alcohol Consumption? None [id number] Information not available 09/06/2022 What Is Your Level Of Caffeine Consumption? Occasional MIGRATION.[id number] 2549 Information not available 09/06/2022 How Much Tobacco Do You Chew? None MIGRATION.[id number] 5699 Information not available 09/06/2022 In The 14 Days Before Symptom Onset, Have You Had Close Contact With A Laboratory-confir med COVID-19 While That Case Was Ill? No MIGRATION.[id number] Information not available 09/06/2022 In The 14 Days Before Symptom Onset, Have You Had Close Contact With A Person Who Is Under Investigation For COVID-19 While That Person Was Ill? No MIGRATION.[id number] 2084 Information not available 09/06/2022 Which Illicit Or Recreational Drugs Have You Used? None MIGRATION.125657 3567 Information not available 09/06/2022 Do You Or Have You Ever Used E-cigarettes Or Vape? Never Used Electronic Cigarettes MIGRATION.[id number] 4446 Information not available 09/06/2022 Do You Have An Electrostatic Air Filter? No MIGRATION.754127 5469 Information not available 09/06/2022 What Is Your Occupation? [employer] Work[employer] MIGRATION.448689 7618 Information not available 09/06/2022 Do You Have A Humidifier? No MIGRATION.089211 2045 Information not available 09/06/2022 Do You Have Moisture Problems In Your Home? No MIGRATION.371712 6813 Information not available 09/06/2022 What Was The Date Of Your Most Recent Tobacco Screening? 01/26/2021 MIGRATION.492317 7063 Information not available 09/06/2022 How Many Children Do You Have? 2 MIGRATION.351809 2550 Information not available 09/06/2022 Do You Have Any Pets? No MIGRATION.171081 9716 Information not available 09/06/2022 What Is Your Relationship Status? MIGRATION.653040 3772 Information not available 09/06/2022 Do You Or Have You Ever Used Smokeless Tobacco? Never Used Smokeless Tobacco MIGRATION.980145 5115 Information not available 09/06/2022 Do You Use Any Illicit Or Recreational Drugs? No [email or web address] Information not available 11/15/2022 Have You Recently Traveled Abroad? No MIGRATION.188042 6222 Information not available 09/06/2022 Sex: Female Functional Status Question Answer Note LastModified by Organizat ion Details LastModified Time What is your exercise level? None [id number].[id number] Information not available 09/06/2022 Mental Status None recorded. Family History Nothing Reported. Medical History Condition Response BLADDER PROBLEMS Y EYE PROBLEMS Y HYPERTHYROIDISM Y HYPERTENSION Y Gynecological HistoryNo gynecological history recorded. Obstetrics History GPAL:G 0 P 0 0 0 0 Immunizations Vaccine Type Date Status Note Provider Nam e and Address Organization Details Recorded Time COVID-19, mRNA, LNP-S, PF, 30 mcg/0.3 mL dose 10/24/2020 completed Not Available [facility] 3 12:21:01 COVID-19, mRNA, LNP-S, PF, 30 mcg/0.3 mL dose 10/03/2020 completed Not Available [facility] 3 12:21:01 Past Encounters Encounter ID Performer Location Encounter Start Date Encounter Closed Date Diagnosis/Indication Diagnosis SNOMED-CT Code Diagnosis ICD10 Code Diagnosis Note [id number] [facility] [place] [address] [place] [address] 09/21/2020 00:00:00 09/21/2020 09:59:26 [id number] [facility] [place] [address] [place] [address] 12/21/2020 00:00:00 12/21/2020 10:08:29 [id number] [facility] [place] [address] [place] [address] 01/26/2021 00:00:00 01/26/2021 13:33:49 [id number] [facility] [place] [address] [place] [address] 03/08/2021 00:00:00 03/08/2021 12:46:04 [id number] _ATHENA_M IGRATION_ DEFAULT_1 _1 , 03/17/2021 00:00:00 03/17/2021 10:18:03 [id number] [facility] [place] [address] [place] [address] 06/07/2021 00:00:00 06/07/2021 09:47:39 [id number] [facility] [place] [address] [place] [address] 09/13/2021 00:00:00 09/13/2021 09:54:05 [id number] [facility] [place] [address] [place] [address] 12/06/2021 00:00:00 12/06/2021 09:36:31 [id number] [facility] [place] [address] [place] [address] 12/27/2021 00:00:00 12/27/2021 09:56:14 [id number] [facility] [place] [address] [place] [address] 03/28/2022 00:00:00 03/28/2022 13:19:23 [id number] [facility] [place] [address] [place] [address] 06/06/2022 00:00:00 06/06/2022 11:18:08 [id number] [facility] [place] [address] [facility] [place] [address] 07/18/2022 00:00:00 07/18/2022 16:25:46 [id number] [facility] [place] [address] [place] [address] 07/24/2022 00:00:00 07/24/2022 13:52:02 [id number] RENEE Cummings [facility] [place] [address] [place] [address] 11/15/2022 11:03:43 11/15/2022 12:27:33 Asthma 201282097 J45.909 ACT 22PFT with obstructio n ( [...] exerciseWe ight lossICS as as above Cough 36146701 R05.9 Resolved with ArnuityCon tinue ICS [id number] KIRK Cummings [facility] [place] [address] [facility] [place] [address] 12/29/2022 10:07:13 01/01/2023 07:55:53 Asthma 222321664 J45.909 ACT 17 on FLovent, 22 on [...] exerciseWe ight lossICS as as above Cough 30687492 R05.9 Resolved with Arnuity, worse with FloventCon tinue ICS, re-ordered arnuity as above [id number] Ashatni Palm MD [facility] [place] [address] [place] [address] 01/04/2023 11:25:07 01/04/2023 12:19:54 Autoimmune thyroiditis 95710607 E06.3 TSH and FT4 in ideal range- TSI/TPO remain elevated- continue on lowest dose methimazol e at 5 mg every other day as patient tolerating well and weight stable. 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 Recommende d a thyroid supplement similiar to actalin by Dr. Matt Curtis that contains, iodine, magnesium, manganese, carnitine and other elements to help maintain endogenous thyroid function and help to reduce swelling to take in meantime to help reduce time frame to burn out and to help with fatigue, hair thinning etc. Essential hypertension 99506006 I10 Continue metoprolol as blood pressure in range. Mixed hyperlipidemia 267 964378 E78.2 LDL and TG levels in range [...] she chooses to go outside of the [facility] to obtain labwork she was [...] in her case. She voiced understand ing. [id number] Carla Pedraza, [facility]- [facility] [place] [address] [place] [address] 02/28/2023 11:25:50 02/28/2023 14:11:34 Asthma 364920052 J45.909 ACT 17 on FLovent, 20 today on ArnuityShe has tried and failed Flovent, Arnuity has been approved by [facility] FT with obstructio n ( in [...] ID Guarantor Name 11/15/2022 1 [place] [id number] Vivian V Beckett [id number] [facility] 12/29/2022 1 [place] [id number] Vivian V Beckett [id number] [facility] 01/04/2023 1 [place] [id number] Vivian V Beckett [id number] 09 Elise Mckeon 02/28/2023 1 [place] [id number] Vivian V Beckett [id number] 09 Elise Mckeon Notes Date Note Type [...] GERD symptoms have improved KIRK Cummings [address], [place], [address], [employer] 11/15/2022 13:49:56 12/29/2022 text/html Ms Linda hancock [...] GERD symptoms have improved KIRK Cummings [address], [place], [address], [employer] 12/31/2022 17:47:21 01/04/2023 text/html 52 yo female [...] mg/dLLFT normalCr normal Ashanti Palm MD [address], [place], [address], [employer] 01/04/2023 13:50:58 02/28/2023 text/html Ms Linda hancock [...] dysphagiaReports GERD symptoms have improved Carla Pedraza, [employer] [address], [place], [address], [employer] 02/28/2023 16:24:43 OBGyn Episode No OBEpisode recorded.
--- OUTSIDE RECORDS SUMMARY | 2024-10-06 12:00 | XMS_ITS | Encounter Summary ---
Author Organization [facility] Address [address] [place] [address] Care Team Providers Care Coremaker Bench Name Role Phone Reji Lott DO Primary Care Provider [phone] [place] Farris MD Unavailable [phone] Ashanti Palm MD Unavailable Encounter Details Date Type Department Care Team (Late st Contact Info) Description 04/09/[address] [facility] Outpatient Therapy [place] [id number] Jordyn Santana, PT Social History Tobacco Use [...] 11:30 AM CDT Elise Yadav Linda 1970 [phone] Patient arrived to therapy this morning and [...] [facility] JORDYN MARI PT, DPT 04/09/2018 12:17 PM documented in this encounter Plan of Treatment Not on file documented as of this encounter Visit Diagnoses Diagnosis Pelvic floor dysfunction- Primary Pelvic muscle wasting documented in this encounter Care Teams Coremaker Bench Relationship Specialty Start Date End Date Reji Lott DO PCP - General 04/27/16 Dayton Farris MD [facility] [address] [place] [address] [employer] CARDIOVASCULAR DISEASE 07/16/19 Ashanti Palm MD [address] [place] [address] ENDOCRINOLOGY 07/24/22 documented as of this encounter
[2024-10-06 12:09] LABS: Total Triiodothyronine (T3) 0.99 NG/ML (0.97-1.69)
[2024-10-06 12:14] LABS: Free T4 Free Thyroxine 1.11 ng/dL (0.78-2.19)
[2024-10-06 15:12] LABS: Hemoglobin A1C 5.9 % (<5.7)
== END 2024-10-06 10:40 | disposition home or self-care (01) ==
LOC: ANHLAB 10:41
PROVIDERS: PCP Family Medicine; Visit Provider Internal Medicine
DX: E05.90 Thyrotoxicosis, unspecified without thyrotoxic crisis or storm (principal); R73.03 Prediabetes
CPT/HCPCS: 36415; 80053; 80061; 83036; 84439; 84443; 84480

== ENCOUNTER 2024-10-16 14:56 | Outpatient (CLI) | payer BC, SELFPAY ==
--- NOTE | ~2024-10-16 | US_ITS ---
EXAMINATION: US thyroid DATE: 10/16/2024 15:31 INDICATION: Goiter. Neck swelling. TECHNIQUE: Multiple ultrasound images of the thyroid were obtained. COMPARISON: None. FINDINGS: The right thyroid lobe measures 6.2 x 2.3 x 2.2 cm. The left thyroid lobe measures 5.3 x 1.6 x 1.7 c m. Isthmus measures 5 mm in thickness. No discrete nodules identified. There is normal echotexture, echo genicity and vascular flow throughout the thyroid gland. IMPRESSION: 1. Normal thyroid ultrasound. Reviewed, dictated and finalized at location A.
--- OUTSIDE RECORDS SUMMARY | 2024-10-16 15:23 | XMS_ITS | Clinical Summary ---
Author Organization [address] Address [address] [place] [address] Care Team Providers Care Welding Teacher Name Role Phone Reji Lott DO Primary Care Provider Reji Lott DO Unavailable [phone] Allergies Active Allergy Reactions Criticality Noted Date Comments Ciprofloxacin Swelling,Other (See comments) Medium 12/2017 Medications methIMAzole (TAPAZOLE) 5 mg tablet Take 1 tablet (5 mg total) by mouth daily 08/15/19 24 Active Arnuity Ellipta 200 mcg/actuation inhaler Inhale 1 puff daily Rinse mouth with water after use. Do not swallow. 30 each 07/24/19 25 026 Active albuterol HFA (PROVENTIL HFA,VENTOLIN HFA,PROAIR HFA) 90 mcg/actuation inhaler Inhale 2 puffs every 4 (four) hours as needed for wheezing or shortness of breath 1 each 07/24/19 25 026 Active fluticasone propionate (FLONASE) 50 mcg/actuation nasal spray Administer 1 spray into each nostril daily 1 each 07/24/19 25 Active metoprolol XL (TOPROL-XL) 25 mg extended release tablet TAKE 1 TABLET(25 MG) BY MOUTH DAILY 90 tablet 1 07/31/19 25 Active docusate sodium (COLACE) 100 mg capsuleIndicati ons:constipatio n Take 1 capsule (100 mg total) by mouth 2 (two) times a day as needed for constipation 60 capsule 08/29/19 25 Active hydrocortisone (ANUSOL-HC) 25 mg suppository Insert 1 suppository (25 mg total) into the rectum 2 (two) times a day as needed for hemorrhoids 15 suppository 08/29/19 25 Active atorvastatin (LIPITOR) 20 mg tabletIndicatio ns:Dyslipidemia TAKE 1 TABLET(20 MG) BY MOUTH DAILY 30 tablet 2 09/09/19 25 Active Active Problems Problem Noted Date Diagnosed Date UTI symptoms 11/05/2023 Assessment & Plan (11/05/2023 11:31 AM CDT): VSS, NAD, no systemic signs of toxicity, non acute abdomen, negative cva tenderness Urine dip unremarkable from infectious standpoint Hx of uterovaginal prolapse, and cystocele, stage 4 Will send off urine and yeast culture Follow up with obgyn nurse ER for abdominal pain, hematuria, dizziness Primary hypertension 08/22/2023 Overview (05/20/2024): Chronic, stable condition not requiring medication Continue diet modification Hyperthyroidism 08/22/2023 Overview (05/20/2024): Following with Endocrinology at [facility] Overall stable on methimazole Continue same medications Diabetes mellitus type II, controlled 08/22/2023 Overview (08/22/2023): Following with Endocrinology at [facility] Not requiring medication A1c 5.14 June 2022 Assessment & Plan (05/20/2024 11:50 AM FLAKER OPERATOR): Labs today Dyslipidemia 08/22/2023 Overview (05/20/2024): Chronic condition not on medications LDL 146 in June 2022 Continue diet modification Assessment & Plan (05/20/2024 11:51 AM FLAKER OPERATOR): Check labs Mild intermittent asthma without complication [...] - 09/24/2024 11:59 PM CDT Hospital Encounter [facility] Breast Imaging [address] [place] [phone] Screening mammogram, encounter for Discharge Disposition: Discharge to home or self care 08/29/2024 10:28 AM FLAKER OPERATOR - 08/29/2024 1:32 PM FLAKER OPERATOR Emergency [facility] Emergency Department [address] [place] [address] Rocco Iglesias DO Bright red rectal bleeding (Primary Dx); Constipation, unspecified constipation type; History of hemorrhoids Discharge Disposition: Discharge to home or self care 08/29/2024 Nurse Triage [facility] Primary Care [address] [place] [address] [address] [place] [address] Reji Lott DO 08/14/2024 3:30 PM FLAKER OPERATOR Office Visit [facility] [address] [phone] Angle Fernandez NP Upper respiratory tract infection, unspecified type (Primary Dx); Fluid level behind tympanic membrane of left ear 08/14/2024 Telephone [facility] [address] [place] [address] [address] [place] [phone] Reji Lott DO Symptom Based Call 07/24/2024 11:15 AM FLAKER OPERATOR Office Visit [facility] Pulmonary [address] [place] [phone] Charlene Morales MD Mild persistent asthma without [...] on file Legal Sex Female 3:26 AM FLAKER OPERATOR Gender Identity Female 03/25/2019 4:31 PM CDT [...] Comments Blood Pressure 146/78 08/29/2024 1:20 PM FLAKER OPERATOR Pulse 70 08/29/2024 1:20 PM FLAKER OPERATOR Temperature 37.2 C (98.9 F) 08/29/2024 1:20 PM FLAKER OPERATOR Respiratory Rate 18 08/29/2024 1:00 PM FLAKER OPERATOR Oxygen Saturation 99% 08/29/2024 1:20 PM FLAKER OPERATOR Inhaled Oxygen Concentration - - Weight 66.2 kg (145 lb 15.1 oz) 025 10:22 AM FLAKER OPERATOR Height 157.5 cm (5' 2 ) 08/29/2024 10:2 2 AM FLAKER OPERATOR Body Mass Index 26.69 08/29/2024 10:22 AM FLAKER OPERATOR Plan of Treatment Health Maintenance Due Date [...] PELVIS W CONTRAST ED 08/29/2024 12:02 PM FLAKER OPERATOR EGFR STAT 08/29/2024 10:26 AM FLAKER OPERATOR DIFFERENTIAL AUTO STAT 08/29/2024 10: 26 AM FLAKER OPERATOR COMPREHENSIVE METABOLIC PANEL STAT 08/29/2024 10:26 AM FLAKER OPERATOR CBC WITH AUTO DIFFERENTIAL STAT 08/29/2024 10:26 AM FLAKER OPERATOR POC INFLUENZA A/B, COVID-19 ANTIGEN Routine 08/14/2024 3:42 PM FLAKER OPERATOR Upper respiratory tract infection, unspecified type ALBUMIN CREATININE RATIO, URINE Routine 05/20/2024 11:19 AM FLAKER OPERATOR Controlled type 2 diabetes mellitus without complication, without long-term current use of insulin (HCC) HEPATITIS C ANTIBODY Routine 05/20/2024 11:17 AM FLAKER OPERATOR Need for hepatitis C screening test HEMOGLOBIN A1C Routine 05/20/2024 11:17 AM FLAKER OPERATOR Controlled type 2 diabetes mellitus without complication, without long-term current use of insulin (HCC) LIPID PANEL Routine 05/20/2024 11:17 AM FLAKER OPERATOR Controlled type 2 diabetes mellitus without complication, without long-term current use of insulin (HCC) Dyslipidemia PAP AND HIGH RISK HPV, REFLEX TO GENOTYPING Routine 09/04/2022 8:36 AM FLAKER OPERATOR Well woman exam from Last 3 Months [...] age 40, based on guidelines of the [employer] (ACR Practice Parameter for the Performance of Screening and Diagnostic Mammography) and [employer]. For women [...] Abdomen Pelvis W Contrast (08/29/2024 12:02 PM FLAKER OPERATOR) Anatomical Region Laterality Modality Body N/A Computed Tomogra phy 08/29/2024 12:1 5 PM FLAKER OPERATOR Narrative 08/29/2024 12:20 PM FLAKER OPERATOR EXAM DESCRIPTION: CT ABDOMEN PELVIS W CONTRAST [...] Abram Wiley M.D. CH: LORENZO Report ID: [id number] Reading Location: [id number] Procedure Note Abram Wiley Jr., MD - [...] Abram Wiley M.D. CH: LORENZO Report ID: [id number] Reading Location: [place] [address] Rocco Iglesias DO IMG CT PROCEDURES Final Result * eGFR (08/29/2024 10:26 AM FLAKER OPERATOR) eGFR >90 >=60 mL/min/1. 73 m2 Comment: [...] was last reviewed 2021. Testing performed by: [facility], [address] [place] [address]., [address] Blood 08/29/2024 10:2 6 AM FLAKER OPERATOR 08/29/2024 10:34 AM FLAKER OPERATOR Rocco Iglesias DO LAB BLOOD ORDERABLES Final Res ult [facility] [address] [facility] Department [place] [address] * Differential, auto (08/29/2024 10:26 AM FLAKER OPERATOR) Neutrophil abs 5.3 1.5 - 6.5 K/cumm Comment:Testing performed by : [facility], [address] [place] [address], [place]., [address] Imm gran abs 0.0 0.0 - 0.1 K/cumm [facility] Comment:Testing performed by : [address], [place]., [address] Lymphocyte abs 1.3 0.8 - 3.3 K/cumm [facility] Comment:Testing performed by : [address] [address] Monocyte abs 0.4 0.2 - 0.8 K/cumm [facility] Comment:Testing performed by : [address] [address] Eosinophil abs 0.1 0.0 - 0.5 K/cumm [facility] Comment:Testing performed by : [address] [address] Basophil abs 0.1 0.0 - 0.1 K/cumm [facility] Comment:Testing performed by : [address] [address] Neutrophil pct 73.5 % [facility] Comment: Interpretive Data Percent cell count reference ranges are not reported, since discordance with absolute values may lead to misinterpretation of CBC data. Current Interpretive Data was last revised on 2017. Testing performed by: [address] [address] Imm gran pct 0.4 % [facility] Comment: Interpretive Data Percent cell count reference ranges are not reported, since discordance with absolute values may lead to misinterpretation of CBC data. Current Interpretive Data was last revised on 2017. Testing performed by: [address] [address] Lymphocyte pct 17.3 % [facility] Comment: Interpretive Data Percent cell count reference ranges are not reported, since discordance with absolute values may lead to misinterpretation of CBC data. Current Interpretive Data was last revised on 2017. Testing performed by: [address] [address] Monocyte pct 6.1 % [facility] Comment: Interpretive Data Percent cell count reference ranges are not reported, since discordance with absolute values may lead to misinterpretation of CBC data. Current Interpretive Data was last revised on 2017. Testing performed by: [address] [address] Eosinophil pct 1.7 % [facility] Comment: Interpretive Data Percent cell count reference ranges are not reported, since discordance with absolute values may lead to misinterpretation of CBC data. Current Interpretive Data was last revised on 2017. Testing performed by: [address] [address] Basophil pct 1.0 % [facility] Comment: Interpretive Data Percent cell count reference ranges are not reported, since discordance with absolute values may lead to misinterpretation of CBC data. Current Interpretive Data was last revised on 2017. Testing performed by: [address] [address] Blood 08/29/2024 10:2 6 AM FLAKER OPERATOR 08/29/2024 10:34 AM FLAKER OPERATOR us Rocco Iglesias DO LAB BLOOD ORDERABLES Final Res ult [facility] [address] [facility] Department [place] [address] * (ABNORMAL) CBC with auto differential (08/29/2024 10:26 AM FLAKER OPERATOR) WBC 7.2 3.8 - 9.9 K/cumm Comment:Testing performed by : [address] [address] Hgb 11.0(L) 11.9 - 15.5 g/dL [facility] Comment:Testing performed by : [address] [address] Hct 33.4(L) 35.6 - 45.5 % [facility] Comment:Testing performed by : [address] [address] Plt 243 150 - 400 K/cumm [facility] Comment:Testing performed by : [address] [address] MPV 9.7 9.1 - 12.3 fL [facility] Comment:Testing performed by : [address] [address] RBC 3.83(L) 3.90 - 5.20 M/cumm [facility] GUILLEN Comment:Testing performed by : [address] [address] MCV 87.2 81.3 - 96.4 fL [facility] Comment:Testing performed by : [address] [address] MCH 28.7 27.1 - 33.3 pg [facility] Comment:Testing performed by : [address] [address] MCHC 32.9 32.3 - 35.7 g/dL [facility] Comment:Testing performed by : [address] [address] RDW CV 13.1 11.1 - 14.9 % [facility] Comment:Testing performed by : [address] [address] RDW SD 41.1 35.7 - 48.1 fL [facility] Comment:Testing performed by : [address] [address] NRBC abs 0.00 0.00 - 0.01 K/cumm [facility] Comment:Testing performed by : [address] [address] Blood 08/29/2024 10:2 6 AM FLAKER OPERATOR 08/29/2024 10:34 AM FLAKER OPERATOR us Rocco Iglesias DO LAB BLOOD ORDERABLES Final Res ult [facility] [address] [facility] Department [place] [address] * Comprehensive metabolic panel (08/29/2024 10:26 AM FLAKER OPERATOR) Sodium 139 135 - 145 mmol/L Comment:Testing performed by : [address] [address] Potassium, pl 3.9 3.3 - 4.9 mmol/L [facility] Comment:Testing performed by : [address] [address] Chloride 103 97 - 110 mmol/L [facility] Comment:Testing performed by : [address], [place]., [address] CO2 24 22 - 32 mmol/L [facility] Comment:Testing performed by : [address] [address] Anion gap 12 2 - 15 mmol/L [facility] Comment:Testing performed by : [address], [place]., [address] BUN 14 6 - 25 mg/dL [facility] Comment:Testing performed by : [address], [place]., [address] Creatinine 0.65 0.60 - 1.10 mg/dL [facility] Comment:Testing performed by : [address] [address] Glucose 111 70 - 199 mg/dL [facility] Comment: Interpretive Data Fasting glucose >/= 126 [...] was last revised 2022. Testing performed by: [address] [address] Calcium 9.6 8.5 - 10.3 mg/dL [facility] Comment:Testing performed by : [address] [address] Bilirubin, total 0.4 0.1 - 1.2 mg/dL [facility] Comment:Testing performed by : [address] [address] Protein, pl 7.9 6.5 - 8.5 g/dL [facility] Comment:Testing performed by : [address] [address] Albumin 4.3 3.5 - 5.0 g/dL [facility] Comment:Testing performed by : [address] [address] Alk phos 66 40 - 130 Units/L [facility] Comment:Testing performed by : [address] [address] ALT 10 7 - 45 Units/L [facility] Comment:Testing performed by : [address] [address] AST 18 10 - 45 Units/L [facility] Comment:Testing performed by : [address] [address] Blood 08/29/2024 10:2 6 AM FLAKER OPERATOR 08/29/2024 10:34 AM FLAKER OPERATOR Rocco Iglesias DO LAB BLOOD ORDERABLES Final Res ult Performing Organization Address City/[facility] Co de Phone Number LEE[facility] [address] [facility] Department [place] [address] * POC Influenza A/B, COVID-19 antigen (08/14/2024 3:42 PM FLAKER OPERATOR) [facility] Influenza A Ag, POC Negative Negative [facility] Influenza B Ag, POC Negative Negative [facility] Ag POC Presumptive Negative Presumptive Negative, Invalid [facility] Nasal 08/14/2024 3:42 PM FLAKER OPERATOR Angle Fernandez HOUSING INSTALLER POINT OF CARE TEST ORDERABLES F inal Result Performing Organization Address City/[facility] Co de Phone Number [facility] [address] [place] [address] * Albumin Creatinine Ratio, Urine (05/20/2024 11:19 AM FLAKER OPERATOR) [facility] Albumin Ur <12.0 mg/L Comment: Interpretive Data No reference range established. Current interpretive data was last revised 2018. Testing performed by: [facility], [address] [place] [address]., [address] Creatinine Ur 67.8 mg/dL [facility] GUILLEN Comment: Interpretive Data No reference range established. Current interpretive data was last revised 2018. Testing performed by: [address] [address] Albumin Creatinine Ratio, Ur <18 1 - 29 mg/g [facility] Comment:Testing performed by : [address] [address] Urine 05/20/2024 11:1 9 AM FLAKER OPERATOR 05/20/2024 1:54 PM FLAKER OPERATOR [facility] URINE ORDERABLES F inal Result Performing Organization Address [facility] Co de Phone Number LEENA [facility] [place] [address] * Hepatitis C antibody Blood (05/20/2024 11:17 AM FLAKER OPERATOR) Hep C Ab Nonreactive Nonreactive Comment: Antibodies [...] on 2019. Blood 05/20/2024 11:1 7 AM FLAKER OPERATOR 05/20/2024 4:41 PM FLAKER OPERATOR [facility] [employer] LAB MICROBIOLOGY - GEN ERAL ORDERABLES Final Result Performing Organization Address [facility] Co de Phone Number [facility] [address] [facility] [place] [address] * (ABNORMAL) Hemoglobin A1c (05/20/2024 11:17 AM FLAKER OPERATOR) Hgb A1C 6.3(H) 4.0 - 5.6 % Comment:Testing performed by : [address] [address] Estimated Average Glucose 134 mg/dL [facility] Comment: The ADA recommends reporting an estimated Average Glucose (eAG) with all Hemoglobin A1c results using the equation derived from a study of 507 normal and diabetic adults. Minority populations were underrepresented and children were not included. (Diabetes Care 31:4658-2618, 2008). The eAG is not equivalent to a fasting glucose. Testing performed by: [address] [address] Blood 05/20/2024 11:1 7 AM FLAKER OPERATOR 05/20/2024 1:52 PM FLAKER OPERATOR Reji Lott DO LAB BLOOD ORDERABLES F inal Result [facility] [address] [facility] Department [place] [address] * (ABNORMAL) Lipid panel (05/20/2024 11:17 AM FLAKER OPERATOR) Cholesterol 258(H) 30 - 199 mg/dL Comment: [...] last revised on 2018. Testing performed by: [address] [address] Triglycerides 120 <=149 mg/dL [facility] Comment: Interpretive [...] last revised on 2018. Testing performed by: [address] [address] HDL 55 >=40 mg/dL [facility] Comment: Interpretive [...] last revised on 2018. Testing performed by: [address] [address] LDL, calculated 182(H) <=129 mg/dL [facility] Comment: Interpretive Data Ages < or = 19 years Acceptable: <110 mg/dL Borderline high: 110-129 mg/dL High: >or= 130 mg/dL Ages > or = 20 years Optimal: <100 mg/dL Near optimal: 100-129 mg/dL Borderline high: 130-159 mg/dL High: >160 mg/dL Calculated using the Bob LDL-C estimating equation. This equation was implemented on 2024. Prior to this date LDL-C was estimated using the Friedewald equation. Literature References: 1. Expert Panel on Integrated Guidelines for Cardiovascular Health and Risk Reduction in Children and Adolescents. Pediatrics 2011;128:S213 2. NCEP Expert Panel. Circulation 2004;110:227 3. Bob Cuhrch et al. RADHA Cardiol. 2020 November 06;5(5):540-548. doi: 10.1001/jamacardio.2020.0013 Current Interpretive Data was last revised on 2024. Testing performed by: [address] [address] Non-HDL Cholesterol 203 mg/dL [facility] GUILLEN Comment: [...] last revised on 2018. Testing performed by: [address] [address] Chol/HDL ratio 5 [facility] Comment:Testing performed by : [address] [address] Blood 05/20/2024 11:1 7 AM FLAKER OPERATOR 05/20/2024 1:45 PM FLAKER OPERATOR [facility] BLOOD ORDERABLES F inal Result [facility]EE[facility] [address] [facility] Department [place] [address] * Pap and High Risk HPV, reflex to Genotyping (09/04/2022 8:36 AM FLAKER OPERATOR) Thin prep (Pap test) 09/04/2022 8:36 AM FLAKER OPERATOR 09/05/2022 8:36 AM FLAKER OPERATOR Narrative PATHOLOGY [facility] - 09/07/2022 3:09 PM FLAKER OPERATOR [facility] Department of Pathology [address] [place] [address] Final Report with Addendum Note to Patients: [...] the details. Patient Name: ELISE GARBER Address: [address] [place] [address] Gender: F : 1970 (Age: 52) Service: Location: Hospital #: [id number] Patient Type: [facility] SPECIMEN Taken: 09/04/2022 Received: 09/05/2022 Accessioned:: 09/06/2022 Reported: 09/07/2022 Physician(s): Monique Edouard M.D. [facility] Diagnosis: Source of Specimen: SCREENING THIN PREP IMAGED PAP w/ HPV: Specimen Adequacy: - Satisfactory for evaluation; endocervical/transformation zone component present General Categorization: - Negative for intraepithelial lesion or malignancy MARY Aguilar(ASCP) Report Electronically Reviewed and Signed Out By NAOMY AguilarASCP) 09/07/2022 15:09:57Addenda: HPV Test Interpretation NEGATIVE for [...] determined by the Surgical Pathology Department at [facility] as part of an ongoing corporate quality engineer program and in compliance with federally mandated [...] characteristics determined by the Surgical Pathology Department [facility]. It has not been cleared or approved by the U. S. Food and Drug Administration. Monique Edouard MD LAB CYTOLOGY ORDERABLES Final Result PATHOLOGY [facility] from Last 3 Months or Most Recently Relevant to Health Maintenance [place] Care Teams Welding Teacher Relationship Specialty Start Date End Date Reji Lott DO [address] [place] [address] PCP - General Family Medicine 08/22/23 Reji Lott DO [address] [place] [address] Family Practice 07/12/23
--- OUTSIDE RECORDS SUMMARY | 2024-10-16 15:23 | XMS_ITS | Encounter Summary ---
Author Organization [facility] Address [address] [place] [address] Care Team Providers Care Charge Loader Name Role Phone Reji Lott DO Primary Care Provider [phone] Dayton Farris MD Unavailable [phone] Ashanti Palm MD Unavailable Encounter Details Date Type Department Care Team (Late st Contact Info) Description 04/09/2018 Hosp Visit [facility] Outpatient Therapy [place], [place] [id number] Jordyn Santana, PT Social History Tobacco Use [...] 11:30 AM CDT Elise Yadav Linda 1970 [id number] Patient arrived to therapy this morning and [...] [facility]. JORDYN MARI PT, DPT 04/09/2018 12:17 PM documented in this encounter Plan of Treatment Not on file documented as of this encounter Visit Diagnoses Diagnosis Pelvic floor dysfunction- Primary Pelvic muscle wasting documented in this encounter Care Teams Charge Loader Relationship Specialty Start Date End Date Reji Lott DO PCP - General 04/27/16 Dayton Farris MD [facility] [address] [place] [address] [place] [employer] Engra[employer] CARDIOVASCULAR DISEASE 07/16/19 Ashanti Palm MD [address] [place] [address] ENDOCRINOLOGY 07/24/22 documented as of this encounter
--- OUTSIDE RECORDS SUMMARY | 2024-10-16 15:23 | XMS_ITS | Referral Summary ---
Author Organization [address] Address [address] [place] [address] Care Team Providers Care Bailer Tenders Supervisor Name Role Phone Reji Lott DO Primary Care Provider Reji Lott DO Unavailable [phone] Encounters Date Type Department Care Team Description 09/24/2024 12:50 PM CDT - 09/24/2024 11:59 PM CDT Hospital Encounter [facility] Breast Imaging [address] [place] [address] Screening mammogram, encounter for Discharge Disposition: Discharge to home or self care 08/29/2024 10:28 AM CLOTH DYEING RANGE TENDER - 08/29/2024 1:32 PM CLOTH DYEING RANGE TENDER Emergency [facility] Emergency Department [facility] [place] [address] Rocco Iglesias DO Bright red rectal bleeding (Primary Dx); Constipation, unspecified constipation type; History of hemorrhoids Discharge Disposition: Discharge to home or self care 08/29/2024 Nurse Triage [facility] Primary [facility] [address] [address] Reji Lott DO 08/14/2024 3:30 PM CLOTH DYEING RANGE TENDER Office Visit [facility] Care at [address] [phone] Angle Fernandez NP Upper respiratory tract infection, unspecified type (Primary Dx); Fluid level behind tympanic membrane of left ear 08/14/2024 Telephone [facility] [address] [facility] [address] [place] [address] Reji Lott DO Symptom Based Call 07/24/2024 11:15 AM CLOTH DYEING RANGE TENDER Office Visit [facility] [place] [address] [facility] [address] [place] [address] Charlene Morales MD Mild persistent [...] or shortness of breath 1 each 11 07/24/19 25 026 Active fluticasone propionate (FLONASE) [...] urine and yeast culture [facility] for [facility] pain, hematuria, dizziness Primary hypertension 08/22/2023 Overview (05/20/2024): Chronic, stable condition not requiring medication Continue diet modification Hyperthyroidism 08/22/2023 Overview (05/20/2024): Following with Endocrinology at [facility] Overall stable on methimazole Continue same medications Diabetes mellitus type II, controlled 08/22/2023 Overview (08/22/2023): Following with Endocrinology at [facility] Not requiring medication A1c 5.14 June 2022 Assessment & Plan (05/20/2024 11:50 AM CLOTH DYEING RANGE TENDER): Labs today Dyslipidemia 08/22/2023 Overview (05/20/2024): Chronic condition not on medications LDL 146 in June 2022 Continue diet modification Assessment & Plan (05/20/2024 11:51 AM CLOTH DYEING RANGE TENDER): Check labs Mild intermittent asthma without complication [...] on file Legal Sex Female 3:26 AM CLOTH DYEING RANGE TENDER Gender Identity Female 03/25/2019 4:31 PM CDT Sexual Orientation Not on file 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 Not on file Not on file Not on file Last Filed Vital Signs Vital Sign Reading Time Taken Comments Blood Pressure 146/78 08/29/2024 1:20 PM CLOTH DYEING RANGE TENDER Pulse 70 08/29/2024 1:20 PM CLOTH DYEING RANGE TENDER Temperature 37.2 C (98.9 F) 08/29/2024 1:20 PM CLOTH DYEING RANGE TENDER Respiratory Rate 18 08/29/2024 1:00 PM CLOTH DYEING RANGE TENDER Oxygen Saturation 99% 08/29/2024 1:20 PM CLOTH DYEING RANGE TENDER Inhaled Oxygen Concentration - - Weight 66.2 kg (145 lb 15.1 oz) 025 10:22 AM CLOTH DYEING RANGE TENDER Height 157.5 cm (5' 2 ) 08/29/2024 10:2 2 AM CLOTH DYEING RANGE TENDER Body Mass Index 26.69 08/29/2024 10:22 AM CLOTH DYEING RANGE TENDER Plan of Treatment Not on file Procedures Procedure Name Priority Date/Time Associated Diagnosis Comments SCREENING MAMMOGRAM BILATERAL W RAGHAV Schedule Routine, Read Routine (OP Routine) 09/24/2024 1:09 PM CDT Screening mammogram, encounter for CT ABDOMEN PELVIS W CONTRAST ED 08/29/2024 12:02 PM CLOTH DYEING RANGE TENDER EGFR STAT 08/29/2024 10:26 AM CLOTH DYEING RANGE TENDER DIFFERENTIAL AUTO STAT 08/29/2024 10: 26 AM CLOTH DYEING RANGE TENDER COMPREHENSIVE METABOLIC PANEL STAT 08/29/2024 10:26 AM CLOTH DYEING RANGE TENDER CBC WITH AUTO DIFFERENTIAL STAT 08/29/2024 10:26 AM CLOTH DYEING RANGE TENDER POC INFLUENZA A/B, COVID-19 ANTIGEN Routine 08/14/2024 3:42 PM CLOTH DYEING RANGE TENDER Upper respiratory tract infection, unspecified type ALBUMIN CREATININE RATIO, URINE Routine 05/20/2024 11:19 AM CLOTH DYEING RANGE TENDER Controlled type 2 diabetes mellitus without complication, without long-term current use of insulin (HCC) HEPATITIS C ANTIBODY Routine 05/20/2024 11:17 AM CLOTH DYEING RANGE TENDER Need for hepatitis C screening test HEMOGLOBIN A1C Routine 05/20/2024 11:17 AM CLOTH DYEING RANGE TENDER Controlled type 2 diabetes mellitus without complication, without long-term current use of insulin (HCC) LIPID PANEL Routine 05/20/2024 11:17 AM CLOTH DYEING RANGE TENDER Controlled type 2 diabetes mellitus without complication, without long-term current use of insulin (HCC) Dyslipidemia PAP AND HIGH RISK HPV, REFLEX TO GENOTYPING Routine 09/04/2022 8:36 AM CLOTH DYEING RANGE TENDER Well woman exam from Last 3 Months [...] age 40, based on guidelines of the [employer] (ACR Practice Parameter for the Performance of Screening and Diagnostic Mammography) and [employer]. For women [...] Abdomen Pelvis W Contrast (08/29/2024 12:02 PM CLOTH DYEING RANGE TENDER) Anatomical Region Laterality Modality Body N/A Computed Tomogra phy 08/29/2024 12:1 5 PM CLOTH DYEING RANGE TENDER Narrative 08/29/2024 12:20 PM CLOTH DYEING RANGE TENDER EXAM DESCRIPTION: CT ABDOMEN PELVIS W CONTRAST [...] Abram Wiley M.D. CH: LORENZO Report ID: [id number] Reading Location: [id number] Procedure Note Abram Wiley Jr., MD - [...] Abram Wiley M.D. CH: LORENZO Report ID: [id number] Reading Location: [place] [address] us Rocco Iglesias DO IMG CT PROCEDURES Final Result * eGFR (08/29/2024 10:26 AM CLOTH DYEING RANGE TENDER) eGFR >90 >=60 mL/min/1. 73 m2 Comment: [...] was last reviewed 2021. Testing performed by: [facility], [address] [place] [address], [place]., [address] Blood 08/29/2024 10:2 6 AM CLOTH DYEING RANGE TENDER 08/29/2024 10:34 AM CLOTH DYEING RANGE TENDER us Rocco Iglesias DO LAB BLOOD ORDERABLES Final Res ult [facility] [address] [facility] [place] [address] * Differential, auto (08/29/2024 10:26 AM CLOTH DYEING RANGE TENDER) Neutrophil abs 5.3 1.5 - 6.5 K/cumm Comment:Testing performed by : [address] [address] Imm gran abs 0.0 0.0 - 0.1 K/cumm LEENA Comment:Testing performed by : [address] [address] Lymphocyte abs 1.3 0.8 - 3.3 K/cumm LEENA Comment:Testing performed by : [address] [address] Monocyte abs 0.4 0.2 - 0.8 K/cumm LEENA Comment:Testing performed by : [address] [address] Eosinophil abs 0.1 0.0 - 0.5 K/cumm LEENA Comment:Testing performed by : [address] [address] Basophil abs 0.1 0.0 - 0.1 K/cumm LEENA Comment:Testing performed by : [address] [address] Neutrophil pct 73.5 % LEENA Comment: Interpretive Data Percent cell count reference ranges are not reported, since discordance with absolute values may lead to misinterpretation of CBC data. Current Interpretive Data was last revised on 2017. Testing performed by: [address] [address] Imm gran pct 0.4 % LEENA Comment: Interpretive Data Percent cell count reference ranges are not reported, since discordance with absolute values may lead to misinterpretation of CBC data. Current Interpretive Data was last revised on 2017. Testing performed by: [address] [address] Lymphocyte pct 17.3 % LEENA Comment: Interpretive Data Percent cell count reference ranges are not reported, since discordance with absolute values may lead to misinterpretation of CBC data. Current Interpretive Data was last revised on 2017. Testing performed by: [address] [address] Monocyte pct 6.1 % LEENA Comment: Interpretive Data Percent cell count reference ranges are not reported, since discordance with absolute values may lead to misinterpretation of CBC data. Current Interpretive Data was last revised on 2017. Testing performed by: [address] [address] Eosinophil pct 1.7 % LEENA Comment: Interpretive Data Percent cell count reference ranges are not reported, since discordance with absolute values may lead to misinterpretation of CBC data. Current Interpretive Data was last revised on 2017. Testing performed by: [address] [address] Basophil pct 1.0 % LEENA Comment: Interpretive Data Percent cell count reference ranges are not reported, since discordance with absolute values may lead to misinterpretation of CBC data. Current Interpretive Data was last revised on 2017. Testing performed by: [address] [address] Blood 08/29/2024 10:2 6 AM CLOTH DYEING RANGE TENDER 08/29/2024 10:34 AM CLOTH DYEING RANGE TENDER us Rocco Iglesias DO LAB BLOOD ORDERABLES Final Res ult [facility] [address] [facility] Department [place] [address] * (ABNORMAL) CBC with auto differential (08/29/2024 10:26 AM CLOTH DYEING RANGE TENDER) WBC 7.2 3.8 - 9.9 K/cumm Comment:Testing performed by : [address] [address] Hgb 11.0(L) 11.9 - 15.5 g/dL LEENA Comment:Testing performed by : [address] [address] Hct 33.4(L) 35.6 - 45.5 % LEENA GUILLEN Comment:Testing performed by : [address] [address] Plt 243 150 - 400 K/cumm LEENA GUILLEN Comment:Testing performed by : [address] [address] MPV 9.7 9.1 - 12.3 fL LEENA Comment:Testing performed by : [address] [address] RBC 3.83(L) 3.90 - 5.20 M/cumm LEENA Comment:Testing performed by : [address] [address] MCV 87.2 81.3 - 96.4 fL LEENA Comment:Testing performed by : [address] [address] MCH 28.7 27.1 - 33.3 pg LEENA Comment:Testing performed by : [address], [address] MCHC 32.9 32.3 - 35.7 g/dL LEENA Comment:Testing performed by : [address], [address] RDW CV 13.1 11.1 - 14.9 % LEENA Comment:Testing performed by : [address], [address] RDW SD 41.1 35.7 - 48.1 fL LEENA Comment:Testing performed by : [address], [address] NRBC abs 0.00 0.00 - 0.01 K/cumm LEENA Comment:Testing performed by : [address] [address] Blood 08/29/2024 10:2 6 AM CLOTH DYEING RANGE TENDER 08/29/2024 10:34 AM CLOTH DYEING RANGE TENDER us Rocco Iglesias DO LAB BLOOD ORDERABLES Final Res ult [facility] [address] [facility] Department [place] [address] [phone] * Comprehensive metabolic panel (08/29/2024 10:26 AM CLOTH DYEING RANGE TENDER) Sodium 139 135 - 145 mmol/L Comment:Testing performed by : [address] [address] Potassium, pl 3.9 3.3 - 4.9 mmol/L LEENA Comment:Testing performed by : [address] [address] Chloride 103 97 - 110 mmol/L LEENA Comment:Testing performed by : [address] [address] CO2 24 22 - 32 mmol/L LEENA Comment:Testing performed by : [address] [address] Anion gap 12 2 - 15 mmol/L LEENA Comment:Testing performed by : [address] [address] BUN 14 6 - 25 mg/dL LEENA Comment:Testing performed by : [address] [address] Creatinine 0.65 0.60 - 1.10 mg/dL LEENA Comment:Testing performed by : [address] [address] Glucose 111 70 - 199 mg/dL LEENA [...] was last revised 2022. Testing performed by: [address] [address] Calcium 9.6 8.5 - 10.3 mg/dL LEENA Comment:Testing performed by : [address] [address] Bilirubin, total 0.4 0.1 - 1.2 mg/dL LEENA Comment:Testing performed by : [address] [address] Protein, pl 7.9 6.5 - 8.5 g/dL LEENA Comment:Testing performed by : [address] [address] Albumin 4.3 3.5 - 5.0 g/dL LEENA Comment:Testing performed by : [address] [address] Alk phos 66 40 - 130 Units/L LEENA Comment:Testing performed by : [address], [address] ALT 10 7 - 45 Units/L [facility] Comment:Testing performed by : [address], [address] AST 18 10 - 45 Units/L [facility] Comment:Testing performed by : [address], [address] Blood 08/29/2024 10:2 6 AM CLOTH DYEING RANGE TENDER 08/29/2024 10:34 AM CLOTH DYEING RANGE TENDER Rocco Iglesias DO LAB BLOOD ORDERABLES Final Res ult Performing Organization Address City/[facility]/ZIP Co de Phone Number [facility] [address] [facility] Department [place] [address] * POC Influenza A/B, COVID-19 antigen (08/14/2024 3:42 PM CLOTH DYEING RANGE TENDER) Influenza A Ag, POC Negative Negative [facility] Influenza B Ag, POC Negative Negative [facility] COVID-19 Ag POC Presumptive Negative Presumptive Negative, Invalid [facility] Nasal 08/14/2024 3:42 PM CLOTH DYEING RANGE TENDER Angle Fernandez NURSE ADVOCATE POINT OF CARE TEST ORDERABLES F inal Result Performing Organization Address City/[facility]/ZIP Co de Phone Number [facility] [address] [place] [address] * Albumin Creatinine Ratio, Urine (05/20/2024 11:19 AM CLOTH DYEING RANGE TENDER) Pathologist [facility] Albumin Ur <12.0 mg/L Comment: Interpretive Data No reference range established. Current interpretive data was last revised 2018. Testing performed by: [facility], [address] [place] [address]., [address] Creatinine Ur 67.8 mg/dL LEENA GUILLEN Comment: Interpretive Data No reference range established. Current interpretive data was last revised 2018. Testing performed by: [facility], [address] [place] [address]., [address] Albumin Creatinine Ratio, Ur <18 1 - 29 mg/g LEENA Comment:Testing performed by : [facility], [address] [place] [address]., [address] Urine 05/20/2024 11:1 9 AM CLOTH DYEING RANGE TENDER 05/20/2024 1:54 PM CLOTH DYEING RANGE TENDER Reji Lott LAB URINE ORDERABLES F inal Result [facility] [address] [facility] Department [place] [address] * Hepatitis C antibody Blood (05/20/2024 11:17 AM CLOTH DYEING RANGE TENDER) Pathologist [facility] Hep C Ab [...] on 2019. Blood 05/20/2024 11:1 7 AM CLOTH DYEING RANGE TENDER 05/20/2024 4:41 PM CLOTH DYEING RANGE TENDER Reji Aleksandr Comerío DO LAB MICROBIOLOGY - GEN ERAL ORDERABLES Final Result Performing Organization Address [facility] Co de Phone Number [facility] [address] [address] * (ABNORMAL) Hemoglobin A1c (05/20/2024 11:17 AM CLOTH DYEING RANGE TENDER) Hgb A1C 6.3(H) 4.0 - 5.6 % Comment:Testing performed by : [facility], [address] [place] [address]., [address] Estimated Average Glucose 134 mg/dL LEENA Comment: The ADA recommends reporting an estimated Average Glucose (eAG) with all Hemoglobin A1c results using the equation derived from a study of 507 normal and diabetic adults. Minority populations were underrepresented and children were not included. (Diabetes Care 31:4365-1194, 2008). The eAG is not equivalent to a fasting glucose. Testing performed by: [address] [address] Blood 05/20/2024 11:1 7 AM CLOTH DYEING RANGE TENDER 05/20/2024 1:52 PM CLOTH DYEING RANGE TENDER [facility] Kaylie DO LAB BLOOD ORDERABLES F inal Result Performing Organization Address [facility] de Phone Number [facility]EE[facility] [place] [address] * (ABNORMAL) Lipid panel (05/20/2024 11:17 AM CLOTH DYEING RANGE TENDER) Cholesterol 258(H) 30 - 199 mg/dL Comment: [...] last revised on 2018. Testing performed by: [address] [address] Triglycerides 120 <=149 mg/dL LEENA Comment: Interpretive [...] last revised on 2018. Testing performed by: [address] [address] HDL 55 >=40 mg/dL LEENA Comment: Interpretive [...] last revised on 2018. Testing performed by: [address] [address] LDL, calculated 182(H) <=129 mg/dL LEENA Comment: [...] last revised on 2024. Testing performed by: [address] [address] Non-HDL Cholesterol 203 mg/dL LEENA GUILLEN Comment: [...] last revised on 2018. Testing performed by: [address] [address] Chol/HDL ratio 5 LEENA Comment:Testing performed by : [address] [address] Blood 05/20/2024 11:1 7 AM CLOTH DYEING RANGE TENDER 05/20/2024 1:45 PM CLOTH DYEING RANGE TENDER us Reji Lott DO LAB BLOOD ORDERABLES F inal Result [facility] [address] [facility] Department [place] [address] * Pap and High Risk HPV, reflex to Genotyping (09/04/2022 8:36 AM CLOTH DYEING RANGE TENDER) Thin prep (Pap test) 09/04/2022 8:36 AM CLOTH DYEING RANGE TENDER 09/05/2022 8:36 AM CLOTH DYEING RANGE TENDER Narrative PATHOLOGY [facility] - 09/07/2022 3:09 PM CLOTH DYEING RANGE TENDER [facility] Department of Pathology [address] [place] [address] Final Report with Addendum Note to Patients: [...] the details. Patient Name: ELISE GARBER Address: [address] [place] [address] Gender: F : 1970 (Age: 52) Service: Location: [facility] : [id number] [facility] #: [id number] Patient Type: [facility] SPECIMEN Taken: 09/04/2022 Received: 09/05/2022 Accessioned:: 09/06/2022 Reported: 09/07/2022 Physician(s): Monique Edouard M.D. [facility] Diagnosis: Source of Specimen: SCREENING THIN PREP IMAGED PAP w/ HPV: Specimen Adequacy: - Satisfactory for evaluation; endocervical/transformation zone component present General Categorization: - Negative for intraepithelial lesion or malignancy MAYR Aguilar(ASCP) Report Electronically Reviewed and Signed Out By NAOMY AguilarASCP) 09/07/2022 15:09:57Addenda: HPV Test Interpretation NEGATIVE for types 16, 18, 31, 33, 35, 39, 45, 51, 52, 56, 58, 59, 66 and 68. Test performed utilizing Gen-Probe Aptima assay. MARY Mejía(ASCP)Report Electronically Reviewed and Signed Out By MARY Mejía(ASCP) 09/07/2022 11:22:22 Specimen(s) Received: A: SCREENING THIN [...] determined by the Surgical Pathology Department at [facility] as part of an ongoing quality control microbiology supervisor program and in compliance with federally mandated [...] characteristics determined by the Surgical Pathology Department [facility]. It has not been cleared or approved by the U. S. Food and Drug Administration. Monique Edouard MD LAB CYTOLOGY ORDERABLES Final Result PATHOLOGY [facility] from Last 3 Months or Most Recently Relevant to Health Maintenance Insurance [facility] [place] [place] [phone] [place] Care Teams Bailer Tenders Supervisor Relationship Specialty Start Date End Date Reji Lott DO [address] [place] [id number] PCP - General Family Medicine 08/22/23 Reji Lott DO [address] [place] [address] Family Practice 07/12/23
--- OUTSIDE RECORDS SUMMARY | 2024-10-16 15:23 | XMS_ITS | Clinical Summary ---
Author Organization [facility] Address [address] [place] [address] Care Team Providers Care Demonstrator [employer] Name Role Phone Mary Lott DO Primary Care Provider Dayton Farris MD Unavailable [phone] Ashanti Palm MD Unavailable Allergies Active [...] diabetes mellitus wit h other specified complication ([facility]) 05/23/2021 LUNA (dyspnea on exertion) 07/29/2019 Precordial pain 07/29/2019 Hypertension 04/09/2018 Pelvic organ prolapse quantification stage 4 cys tocele 03/08/2016 External hemorrhoids 09/28/2014 Asthma ([facility]) Hyperthyroidism Resolved Problems Problem Noted Date Diagnosed Date Resolved Date Cervical cancer screening 04/17/2018 Yeast vaginitis 10/19/2014 02/14/2019 Visit for routine recreation specialist exam 09/28/2014 0 03/19/2020 Encounter for preventive [...] Comments Blood Pressure 126/76 06/11/2023 7:56 AM INSURANCE BROKER Pulse 51 06/11/2023 7:56 AM INSURANCE BROKER Temperature 36.7 C (98 F) 10/04/2021 6:09 AM CDT Respiratory Rate 18 10/04/2021 6:09 AM CDT Oxygen Saturation 98% 11/14/2022 9:34 AM CDT Inhaled Oxygen Concentration - - Weight 68 kg (150 lb) 06/11/2023 7:56 AM INSURANCE BROKER Height 156.2 cm (5' 1.5 ) 06/11/2023 7:56 AM INSURANCE BROKER Body Mass Index 27.88 06/11/2023 7:56 AM INSURANCE BROKER Plan of Treatment Health Maintenance Due Date [...] STANTON YUMI DIGI Routine 06/29/2022 12:12 PM INSURANCE BROKER Encounter for screening mammogram for malignant neoplasm of breast LIPID PANEL Routine 06/08/2022 9:29 AM INSURANCE BROKER Type 2 diabetes mellitus with other specified complication, without long-term current use of insulin HEMOGLOBIN, GLYCOSYLATED Routine 06/08/2022 9:29 AM INSURANCE BROKER Type 2 diabetes mellitus with other specified complication, without long-term current use of insulin THINPREP IMAGING SYSTEM PAP Routine 04/17/2018 10:58 AM CDT from Last 3 Months or Most Recently Relevant to Health Maintenance Results * MG SCREENING W STANTON YUMI DIGI (06/29/2022 12:12 PM INSURANCE BROKER) Anatomical Region Laterality Modality Breast Bilateral Mammography 06/29/2022 1:18 PM INSURANCE BROKER Narrative 06/29/2022 1:20 PM INSURANCE BROKER Examination: Digital screening mammogram with CAD. Clinical [...] t * HEMOGLOBIN, GLYCOSYLATED (06/08/2022 9:29 AM INSURANCE BROKER) HGB A1C 5.7 4.2 - 6.5 % [facility] 06/08/2022 9:29 AM INSURANCE BROKER [place] [facility] Final Resul t Performing Organization Address City/[facility]/ZIP Co de Phone Number CARLA COON [address] [address], * (ABNORMAL) LIPID PANEL (06/08/2022 9:29 AM INSURANCE BROKER) CHOLESTEROL 213(H) 0 - 199 MG/DL [facility] TRIGLYCERIDES 100 0.00 - 150.00 MG/DL [facility] Comment: NCEP REFERENCE VALUES FOR TRIGLYCERIDES: NORMAL: <150 MG/DL BORDERLINE HIGH: 150 - 199 MG/DL HIGH: 200 - 499 MG/DL VERY HIGH: >/= 500 MG/DL HDL 47 >40 MG/DL [facility] LDL (CALCULATED) 146(H) 0 - 99 MG/DL [facility] Comment: CUTOFF VALUES RECOMMENDED BY THE NATIONAL CHOLESTEROL EDUCATION PROGRAM: DESIRABLE: CHOLESTEROL <200 MG/DL LDL <100 MG/DL BORDERLINE: CHOLESTEROL 200-239 MG/DL LDL 101-159 MG/DL HIGHER RISK: CHOLESTEROL >240 MG/DL LDL >160 MG/DL, HDL <40 MG/DL NON HDL CHOLESTEROL 166 NO REFERENCE RANGE MG/DL [facility] Comment: A REASONABLE GOAL FOR NON-HDL CHOLESTEROL IS ONE THAT IS 30 MG/DL HIGHER THAN THE LDL CHOLESTEROL GOAL. CHOL/HDL RATIO 4.5 0.0 - 5.0 . [facility] Comment:IS PATIENT FASTING?- >YES 06/08/2022 9:29 AM INSURANCE BROKER 06/09/2022 6:39 AM INSURANCE BROKER [place] [facility] Final Resul t Performing Organization Address City/[facility]/ZIP Co de Phone Number [facility] [address] [place] [address], * THINPREP IMAGING SYSTEM PAP (04/17/2018 10:58 [...] 04/25/2018 8:58 AM CDT Order Comment: Report: [id number] 1:42PM by Mary Lott: unsatisfactory pap - due to prolapse - she needs to get back in to see Form Layer Result Communication: Call patient with results us Mary Lott DO PATHOLOGY/CYTOLOGY ORDERABL ES Final Result [facility] TO EPIC CONVERSION from Last 3 Months or Most Recently Relevant to Health Maintenance Insurance [facility] [place] [phone] [employer] Care Teams [employer] Relationship Specialty Start Date End Date Mary Lott DO PCP - General 04/27/16 Dayton Farris MD [facility] [address] [place] [address] [place] [employer] CARDIOVASCULAR DISEASE 07/16/19 Ashanti Palm MD [address] [place] [id number] ENDOCRINOLOGY 07/24/22
--- OUTSIDE RECORDS SUMMARY | 2024-10-16 15:23 | XMS_ITS | Data Portability ---
Author Organization [place] [facility] [employer], Main Office Address [address] [place] [address] Care Team Providers Care Job Foreman Name Role Phone ZENAIDA MARY Primary Care Provider Assessment No assessment recorded. Plan of Treatment Reminders Order Date Submit Date Provider Last Modified By Organization Details Last Modified Time Details Appointments None recorded. Lab lipid panel, serum 2022 023 [email or web address] Not available 11:59:53 TSH + free T4, serum 2022 023 Not available 11:59:53 T3, free, serum or plasma 2022 023 Not available 11:59:53 thyroid peroxidase (tpo) Ab, serum 2022 023 [email or web address] Not available 11:59:53 tsi (thyroid-st imulating immunoglobu susannah), serum 2022 023 Not available 11:59:53 CMP, serum or plasma 2022 023 [email or web address] Not available 11:59:53 Referral None recorded. Procedures None recorded. Surgeries None recorded. Imaging None recorded. Medication Orders omega-3 acid ethyl esters 1 gram capsule 2022 023 [facility]44, [address], [place], [id number], 11:59:39 metoprolol succinate ER 25 mg tablet,exte nded release 24 hr 2022 023 [facility] #61800, [address], [place], [id number], 3 11:59:06 methimazole 5 mg tablet 2022 023 [facility] #28894, [address], [place], [id number], 3 11:59:05 Arnuity Ellipta 200 mcg/actuati on powder for inhalation 2022 023 [facility] #20974, [address], [id number], 3 10:46:09 Flovent Diskus 250 mcg/actuati on powder for inhalation 2022 023 [facility] #71080, [address], [place], [id number], 3 11:40:17 Patient TargetsNo targets recorded. Patient [...] 2016, 39(Kenney ppl.1 ):s13 -s22 Not Available [facility] ([facility]) [address] [facility], [place], [address], 12/29/2022 14:54:35 12/30/1912/29/2022 COMPR EHENS ANKUR METAB OLIC PANEL sodium 141 mmol/ L 137-14 5 Not Available [facility] (Lab) [address] [place], [address], 12/29/2022 18:30:50 12/30/1912/29/2022 COMPR EHENS ANKUR METAB OLIC PANEL potassium 3.8 mmol/ L 3.5-5. 1 Not Available [facility] (Lab) [address] [place], [address], 12/29/2022 18:30:50 12/30/1912/29/2022 COMPR EHENS ANKUR METAB OLIC PANEL chloride 106 mmol/ L 98-107 Not Available [facility] (Lab) [address] [place], [address], 12/29/2022 18:30:50 12/30/1912/29/2022 COMPR EHENS ANKUR METAB OLIC PANEL carbon dioxide 24 mmol/ L 22-30 Not Available [facility] (Lab) [address] [place], [address], 12/29/2022 18:30:50 12/30/19 23 12/29/2022 COMPR EHENS ANKUR METAB OLIC PANEL anion gap 14.8 mmol/ L 14-22 Not Available [facility] (Lab) [address] [place], [address], 12/29/2022 18:30:50 12/30/1912/29/2022 COMPR EHENS ANKUR METAB OLIC PANEL glucose 99 mg/dL 70-99 Not Available [facility] (Lab) [address] [place], [address], 12/29/2022 18:30:50 12/30/1912/29/2022 COMPR EHENS ANKUR METAB OLIC PANEL BUN 12 mg/dL 8-19 Not Available [facility] (Lab) [address] [place], [address], 12/29/2022 18:30:50 12/30/19 23 12/29/2022 COMPR EHENS ANKUR METAB OLIC PANEL creatinine 0.62 mg/dL 0.66-1 .25 low Not Available [facility] (Lab) [address] [place], [address], 12/29/2022 18:30:50 12/30/19 23 12/29/2022 COMPR EHENS ANKUR METAB OLIC PANEL GFR >60 Refer ence Range : [place] ge GFR Healt hy Adult : >60 [...] or ethni c subgr oups, such as Hismd nics. Outsi de the valid ated wali [...] s/kdo qi/gf r_cal culat or Not Available [facility] (Lab) [address] [place], [address], 12/29/2022 18:30:50 12/30/1912/29/2022 COMPR EHENS ANKUR METAB OLIC PANEL alkaline phosphatase 55 U/L 38-126 Not Available [facility] (Lab) [address] [place], [address], 12/29/2022 18:30:50 12/30/1912/29/2022 COMPR EHENS ANKUR METAB OLIC PANEL alanine aminotransfe rase 17 U/L 0-35 Not Available [facility] (Lab) [address] [place], [address], 12/29/2022 18:30:50 12/30/1912/29/2022 COMPR EHENS ANKUR METAB OLIC PANEL aspartate aminotransfe rase 25 U/L 15-37 Not Available [facility] (Lab) [address] [place], [address], 12/29/2022 18:30:50 12/30/1912/29/2022 COMPR EHENS ANKUR METAB OLIC PANEL bilirubin, total 0.60 mg/dL 0.20-1 .30 Not Available [facility] (Lab) [address] [place], [address], 12/29/2022 18:30:50 12/30/1912/29/2022 COMPR EHENS ANKUR METAB OLIC PANEL calcium 8.9 mg/dL 8.4-10 .2 Not Available [facility] (Lab) [address] [place], [address], 12/29/2022 18:30:50 12/30/1912/29/2022 COMPR EHENS ANKUR METAB OLIC PANEL total protein 7.5 g/dL 6.3-8. 2 Not Available [facility] (Lab) [address] [place], [address], 12/29/2022 18:30:50 12/30/19 23 12/29/2022 COMPR EHENS ANKUR METAB OLIC PANEL albumin 3.9 g/dL 3.4-5. 0 Not Available [facility] (Lab) [address] [place], [address], 12/29/2022 18:30:50 12/30/19 23 12/29/2022 COMPR EHENS ANKUR METAB OLIC PANEL globulin 3.6 g/dL 2.6-4. 2 Not Available [facility] (Lab) [address] [place], [address], 12/29/2022 18:30:50 12/30/19 23 12/29/2022 COMPR EHENS ANKUR METAB OLIC PANEL A/G ratio 1.1 ratio 1.0-2. 0 Not Available [facility] (Lab) [address] [place], [address], 12/29/2022 18:30:50 12/30/1912/29/2022 LIPID PANEL cholesterol 197 mg/dL 140-19 9 NIH EMILY NSUS RECOM MENDA TION FOR RENETTA STERO L: ADULT CHILD LOW RISK: <200 <170 BORDE RLINE : <200- 239 ----- HIGH RISK: >240 >200 Not Available [facility] (Lab) [address] [place], [address], 12/29/2022 18:30:55 12/30/1912/29/2022 LIPID PANEL triglyceride s 120 mg/dL 0-150 NIH EMILY NSUS REPOR T RECOM MENDA TION FOR TRIGL YCERI FEILCIANO: ADULT CHILD LOW RISK: <150 ----- BODER LINE: 150-1 99 ----- HIGH RISK: >200 ----- Not Available [facility] (Lab) [address] [place], [address], 12/29/2022 18:30:55 12/30/1912/29/2022 LIPID PANEL HDL cholesterol 45 mg/dL 40- Not Available [facility] (Lab) [address] [place], [address], 12/29/2022 18:30:55 12/30/1912/2912/29/2022 LIPID PANEL LDL cholesterol, [...] WILL NOT BE REPOR MARCO. Not Available [facility] (Lab) [address] [place], [address], 12/29/2022 18:30:55 12/30/1912/29/2022 T3 FREE free T3 3.3 pg/mL 2.77-5 .27 Not Available [facility] (Lab) [address] [place], [address], 12/29/2022 18:56:21 12/30/19 23 12/29/2022 T4 FREE free T4 1.48 NG/dL 0.78-2 .19 Not Available [facility] (Lab) [address] [place], [address], 12/29/2022 18:56:24 12/30/19 23 12/29/2022 TSH thyroid-stim ulating hormone 1.350 uIU/m L 0.465- 4.680 Not Available [facility] (Lab) [address] [place], [address], 12/29/2022 19:09:08 12/30/19 23 12/31/2022 THYRO ID PEROX IDASE (TPO) AB thyroid peroxidase (tpo) Ab 159 IU/mL 0-34 high Perfo rmed at: [facility] [address] [id number] Lab Direc tor: Willie juares PhD, Phone : [phone] Not Available [facility] (Lab) [address] [place], [address], 12/31/2022 07:08:24 12/30/19 23 01/01/2023 INSUL IN insulin 7.6 uIU/m L 2.6-24 .9 Perfo rmed at: [facility] [address]ie [address] [place] [address] Lab Direc tor: Willie juares PhD, Phone : [phone] Not Available [facility] (Lab) [address] [place], [address], 01/01/2023 13:08:39 12/30/19 23 01/02/2023 THYRO ID STIM IMMUN OGLOB ULIN thyroid stim immunoglobul in 1.17 IU/L 0.00-0 .55 high Perfo rmed at: [facility] [address] [address] Lab Direc tor: Quita dunn MD, Phone : [phone] Not Available [facility] (Lab) [address] [place], [address], 01/02/2023 15:10:21 Result Notes None recorded. Problems Name Problem SNOMED Code Status Onset Date Resolution Date Notes Provider Name and Address Organization Details Recorded Time Asthma 597644455 Active 2021 Not Available [facility] 3 12:21:00 Gastroesophag eal reflux disease without esophagitis 055371239 Active 2022 Not Available [facility] 3 12:21:00 Mixed hyperlipidemi a 903336394 Active 2021 Not Available [facility] 3 12:21:00 Hyperthyroidi sm 46610898 Active 2018 Not Available [facility] 3 12:21:00 Hypertensive disorder 22874021 Active 2018 Not Available [facility] 3 12:21:01 Cough 98507757 Active 2021 Not Available [facility] 3 12:21:01 Wheezing 18374030 Active 2021 Not Available [facility] 3 12:21:01 Dyspnea on exertion 97388539 Active 2021 Not Available [facility] 3 12:21:01 Prediabetes 529675761 Active 2021 Not Available [facility] 3 12:21:01 Congestion of nasal sinus 44460490 Active 2021 Not Available [facility] 3 12:21:01 Autoimmune thyroiditis 47425748 Active 2022 Not Available [facility] 3 12:21:01 Essential hypertension 10415395 Active 2022 Not Available [facility] 3 12:21:01 Problem Notes None recorded. Medical Equipment None Reported. Allergies Allergen ID Allergen Name Allergen Category Reaction Reaction Severity Criticality Documentation Date Start Date Code Code System Note Provider Name and Address Organization Details Recorded Time 3203 ciproflox acin medicatio n Not available Not available Not available 09/06/2022 2551 RxNorm Not Available [facility] 3 02:34:00 Medications Name Sig Start [...] % 97 % 63 /min 97.2 [degF] 53929.1 2 g 115 mm[Hg] 65 mm[Hg] Not Available [facility] 3 02:28:59 Date Recorded Body height Body mass index (BMI) Body weight Body temperature Heart rate Oxygen saturation Oxygen saturation in Arterial blood by Pulse oximetry Systolic blood pressure Diastolic blood pressure Provider Name and Address Organization Details Last Updated DateTime 3 157.48 cm 27.4 kg/m2 75025.8 6 g 97.2 [degF] 65 /min 97 % 97 % 114 mm[Hg] 82 mm[Hg] Tracie Mc [facility] [employer] 3 11:12:20 Date Recorded Body height Body mass index (BMI) Body weight Heart rate Body temperature Oxygen saturation Oxygen saturation in Arterial blood by Pulse oximetry Systolic blood pressure Diastolic blood pressure Provider Name and Address Organization Details Last Updated DateTime 3 157.48 cm 27.4 kg/m2 51765.8 6 g 60 /min 96.3 [degF] 98 % 98 % 110 mm[Hg] 62 mm[Hg] Carla Pedraza, DAMAGE PREVENTION COORDINATOR-BC [address] [facility], [place], [address], REYES Osborne Benny [employer] 3 10:44:59 Date Recorded Body height Body mass index (BMI) Body weight Body temperature Heart rate Systolic blood pressure Diastolic blood pressure Provider Name and Address Organization Details Last Updated DateTime 3 157.48 cm 27.3 kg/m2 27377.9 8 g 97.4 [degF] 65 /min 102 mm[Hg] 62 mm[Hg] JALEN Dean [facility] [employer] [facility] 3 11:43:50 Date Recorded Body height Body weight Body temperature Heart rate Oxygen saturation Oxygen saturation in Arterial blood by Pulse oximetry Systolic blood pressure Diastolic blood pressure Provider Name and Address Organization Details Last Updated DateTime 3 157.48 cm 23374.8 6 g 98.1 [degF] 66 /min 98 % 98 % 110 mm[Hg] 68 mm[Hg] Suzanna Trevizo RN [facility] [employer] [facility] 3 11:40:40 Social History Question Answer Notes LastModified by Organizat ion Details LastModified Time Tobacco Smoking Status Never Smoker Not Available [facility] 09/06/2022 02:26:02 Do You Have An Advance Directive? No [id number] Information not available 09/06/2022 What Is Your Level Of Alcohol Consumption? None [id number] Information not available 09/06/2022 What Is Your Level Of Caffeine Consumption? Occasional [id number].[id number] 2279 Information not available 09/06/2022 How Much Tobacco Do You Chew? None MIGRATION.[id number] Information not available 09/06/2022 In The 14 Days Before Symptom Onset, Have You Had Close Contact With A Laboratory-confir med COVID-19 While That Case Was Ill? No [id number].[id number] Information not available 09/06/2022 In The 14 Days Before Symptom Onset, Have You Had Close Contact With A Person Who Is Under Investigation For COVID-19 While That Person Was Ill? No [id number].[id number] 0353 Information not available 09/06/2022 Which Illicit Or Recreational Drugs Have You Used? None MIGRATION.[id number] Information not available 09/06/2022 Do You Or Have You Ever Used E-cigarettes Or Vape? Never Used Electronic Cigarettes MIGRATION.572101 1007 Information not available 09/06/2022 Do You Have An Electrostatic Air Filter? No MIGRATION.356553 5776 Information not available 09/06/2022 What Is Your Occupation? [employer] MIGRATION.[id number] 8147 Information not available 09/06/2022 Do You Have A Humidifier? No MIGRATION.[id number] 9030 Information not available 09/06/2022 Do You Have Moisture Problems In Your Home? No MIGRATION.473072 1733 Information not available 09/06/2022 What Was The Date Of Your Most Recent Tobacco Screening? 01/26/2021 [id number].[id number] 4541 Information not available 09/06/2022 How Many Children Do You Have? 2 MIGRATION.314728 6932 Information not available 09/06/2022 Do You Have Any Pets? No MIGRATION.[id number] 2340 Information not available 09/06/2022 What Is Your Relationship Status? MIGRATION.690051 0104 Information not available 09/06/2022 Do You Or Have You Ever Used Smokeless Tobacco? Never Used Smokeless Tobacco MIGRATION.753504 8236 Information not available 09/06/2022 Do You Use Any Illicit Or Recreational Drugs? No [email or web address] Information not available 11/15/2022 Have You Recently Traveled Abroad? No MIGRATION.598078 7050 Information not available 09/06/2022 Sex: Female Functional Status Question Answer Note LastModified by Organizat ion Details LastModified Time What is your exercise level? None [id number] Information not available 09/06/2022 Mental Status None recorded. Family History Nothing Reported. Medical History Condition Response BLADDER PROBLEMS Y HYPERTHYROIDISM Y EYE PROBLEMS Y HYPERTENSION Y Gynecological HistoryNo gynecological history recorded. Obstetrics History GPAL:G 0 P 0 0 0 0 Immunizations Vaccine Type Date Status Note Provider Nam e and Address Organization Details Recorded Time COVID-19, mRNA, LNP-S, PF, 30 mcg/0.3 mL dose 10/24/2020 completed Not Available [facility] 3 12:21:01 COVID-19, mRNA, LNP-S, PF, 30 mcg/0.3 mL dose 10/03/2020 completed Not Available [facility] 3 12:21:01 Past Encounters Encounter ID Performer Location Encounter Start Date Encounter Closed Date Diagnosis/Indication Diagnosis SNOMED-CT Code Diagnosis ICD10 Code Diagnosis Note [id number] [facility] Endo Flo Nazario [address] [place] [address] 09/21/2020 00:00:00 09/21/2020 09:59:26 [id number] [facility] Endo Walters [address] [place] [address] 12/21/2020 00:00:00 12/21/2020 10:08:29 [id number] [facility] Pulmonolo gy Walters [address] [place] [address] 01/26/2021 00:00:00 01/26/2021 13:33:49 [id number] [facility] Pulmonolo gy [place] [address] [place] [address] 03/08/2021 00:00:00 03/08/2021 12:46:04 [id number] _ATHENA_M IGRATION_ DEFAULT_1 _1 , 03/17/2021 00:00:00 03/17/2021 10:18:03 [id number] [facility] Pulmonolo gy [place] [address] [place] [address] 06/07/2021 00:00:00 06/07/2021 09:47:39 [id number] [facility] Endo Walters [address] [place] [address] 09/13/2021 00:00:00 09/13/2021 09:54:05 [id number] [facility] Pulmonolo gy Walters [address] [place] [address] 12/06/2021 00:00:00 12/06/2021 09:36:31 [id number] [facility] Endo [facility] [address] [place] [address] 12/27/2021 00:00:00 12/27/2021 09:56:14 [id number] [facility] Endo [facility] [address] [place] [address] 03/28/2022 00:00:00 03/28/2022 13:19:23 [id number] [facility] Pulmonolo gy [place] [address] [place] [address] 06/06/2022 00:00:00 06/06/2022 11:18:08 [id number] [facility] Pulmonolo gy [place] [address] [facility] [place] [address] 07/18/2022 00:00:00 07/18/2022 16:25:46 [id number] [facility] Endo [facility] [address] [place] [address] 07/24/2022 00:00:00 07/24/2022 13:52:02 [id number] RENEE Cummings [facility] Pulmon[facility] [address] [place] [address] 11/15/2022 11:03:43 11/15/2022 12:27:33 Asthma 847698491 J45.909 ACT 22PFT with obstructio n ( [...] exerciseWe ight lossICS as as above Cough 52254803 R05.9 Resolved with ArnuityCon tinue ICS [id number] KIRK Cummings [facility] Pulmonolo [facility] [address] [facility] [place] [address] 12/29/2022 10:07:13 01/01/2023 07:55:53 Asthma 777511781 J45.909 ACT 17 on FLovent, 22 on [...] exerciseWe ight lossICS as as above Cough 71096575 R05.9 Resolved with Arnuity, worse with FloventCon tinue ICS, re-ordered arnuity as above [id number] Ashanti Palm MD [facility] [address] [place] [address] 01/04/2023 11:25:07 01/04/2023 12:19:54 Autoimmune thyroiditis 99078675 E06.3 TSH and FT4 in ideal range- TSI/TPO remain elevated- continue on lowest dose methimazol e at 5 mg every other day as patient tolerating well and weight stable. Encouraged cleaners diet restrictiv e of processed foods /refined sugars. Recommende d a thyroid supplement similiar to actalin by Dr. Matt Curtis that contains, iodine, magnesium, manganese, carnitine and other elements to help maintain endogenous thyroid function and help to reduce swelling to take in meantime to help reduce time frame to burn out and to help with fatigue, hair thinning etc. Essential hypertension 29587994 I10 Continue metoprolol as blood pressure in range. Mixed hyperlipidemia 267 300102 E78.2 LDL and TG levels in range [...] she chooses to go outside of the [facility] to obtain labwork she was [...] in her case. She voiced understand ing. [id number] Carla Pedraza, [facility]- [facility] Pulmonolo gy Flo Nazario [address] [place] [address] 02/28/2023 11:25:50 02/28/2023 14:11:34 Asthma [id number] J45.909 ACT 17 on FLovent, 20 today on ArnuityShe has tried and failed Flovent, Arnuity has been approved by [facility] FT with obstructio n ( in chart)CXR [...] ID Guarantor Name 11/15/2022 1 [id number] Vivian V Beckett [id number] 09 [facility] 12/29/2022 1 [place] [id number] Vivian V Beckett [id number] 09 [facility] 01/04/2023 1 [place] [id number] Vivian V Beckett [id number] 09 Elise Mckeon 02/28/2023 1 [place] [id number] Vivian V Beckett [id number] 09 Elise Mckeon Notes Date Note Type [...] GERD symptoms have improved KIRK Cummings [address], [place], [address], [employer] 11/15/2022 13:49:56 12/29/2022 text/html Ms Linda hancock [...] GERD symptoms have improved KIRK Cummings [address], [place], [address], [employer] 12/31/2022 17:47:21 01/04/2023 text/html 52 yo female [...] mg/dLLFT normalCr normal Ashanti Palm MD [address], [place], [address], [employer] 01/04/2023 13:50:58 02/28/2023 text/html Ms Linda hancock [...] dysphagiaReports GERD symptoms have improved Carla Pedraza, DAMAGE PREVENTION COORDINATOR-BC [address], [place], [address], [employer] 02/28/2023 16:24:43 OBGyn Episode No OBEpisode recorded.
== END 2024-10-16 14:57 | disposition home or self-care (01) ==
PROVIDERS: PCP Family Medicine; Visit Provider Internal Medicine
DX: R22.1 Localized swelling, mass and lump, neck (principal); E04.9 Nontoxic goiter, unspecified
CPT/HCPCS: 76536

== ENCOUNTER 2025-01-02 09:07 | Outpatient (CLI) | payer BC, SELFPAY ==
[2025-01-02 10:49] LABS: Free T4 Free Thyroxine 1.01 ng/dL (0.78-2.19)
[2025-01-02 11:11] LABS: Total Triiodothyronine (T3) 1.05 NG/ML (0.82-1.58)
== END 2025-01-02 09:08 | disposition home or self-care (01) ==
LOC: ANHLAB 09:10
PROVIDERS: PCP Family Medicine; Visit Provider Internal Medicine
DX: E78.5 Hyperlipidemia, unspecified (principal); R73.03 Prediabetes; E05.90 Thyrotoxicosis, unspecified without thyrotoxic crisis or storm; I10 Essential (primary) hypertension
CPT/HCPCS: 36415; 83519; 84439; 84443; 84445; 84480